=== PATIENT | male | born 1945 | race Caucasian/White ===

== ENCOUNTER 2020-11-03 07:25 | Outpatient (REF) | payer MEDICARE, OTHER, SELFPAY ==
[2020-11-03 10:31] LABS: MANUAL DIFF FLAG NO
[2020-11-03 10:35] LABS: Basophils Percent Auto 0.4 % (0-2); Eosinophils Absolute Auto 0.2 X10*3/uL (0.0-0.4); Eosinophils Percent Auto 2.3 % (0-4); Hematocrit 43.9 % (42-52); Hemoglobin 14.3 g/dl (14.0-18.0); Imm Gran Abs Auto 0.03 X10*3/uL (0.00-0.03); Imm Gran Pct Auto 0.4 % (0.0-0.4); Lymphocytes Absolute Auto 1.6 X10*3/uL (1.2-4.9); Lymphocytes Percent Auto 22.1 % (20-40); Mean Corpuscular HGB Conc 32.6 g/dl (31.0-36.0); Mean Corpuscular Hemoglobin 30.8 pg (27.0-33.0); Mean Corpuscular Volume 94.6 fL (80-98); Mean Platelet Volume 9.8 fL (9.4-12.4); Monocytes Absolute Auto 0.5 X10*3/uL (0.1-1.2); Monocytes Percent Auto 7.4 % (2-11); Neutrophils Absolute Auto 4.7 X10*3/uL (2.0-8.3); Neutrophils Percent Auto 67.4 % (45-73); Platelet Count 295 X10*3/uL (160-400); Red Blood Count 4.64 X10*6/uL (4.60-5.80); Red Cell Distribution Width 12.4 % (11.0-16.0)
[2020-11-03 10:49] LABS: Glucose Urine UA NEG (NEG); Leukocyte Esterase Urine NEG (NEG); Nitrite Urine NEG (NEG); PH 7.5 (5.0-8.0); Urine Blood NEG (NEG); Urine Ketones NEG (NEG); Urine Protein NEG (NEG-TRACE)
[2020-11-03 10:51] LABS: Appearance Urine CLEAR; Color Urine YELLOW
[2020-11-03 11:11] LABS: Alanine Aminotransferase 22 U/L (0-40); Albumin Level 4.4 g/dL (3.5-5.0); Alkaline Phosphatase 92 U/L (39-117); Anion Gap 13 (12-20); Aspartate Amino Transferase 22 U/L (5-37); Bilirubin Total 0.9 mg/dL (0.0-1.0); Blood Urea Nitrogen 15 mg/dL (9-16); Calcium 9.4 mg/dL (8.4-10.2); Carbon Dioxide 31 mmol/L (22-29); Chloride 103 mmol/L (96-108); Cholesterol 122 mg/dL; Estimated Glomerular Filt Rate > 60; Glucose Fasting 97 mg/dL (60-99); HDL Cholesterol 36 mg/dL; LDL Cholesterol Calculated 58 mg/dl; Potassium 4.3 mmol/l (3.3-5.1); Sodium 143 mmol/L (135-145); Triglycerides 142 mg/dL
[2020-11-03 11:32] LABS: Prostate Specific Antigen 1.98 ng/mL (<0.05-4.0)
== END 2020-11-03 07:26 | disposition home or self-care (01) ==
LOC: HO.WFDLDS 07:25
PROVIDERS: Visit Provider Internal Medicine
DX: E78.00 Pure hypercholesterolemia, unspecified (principal); I10 Essential (primary) hypertension; R31.9 Hematuria, unspecified; N40.0 Benign prostatic hyperplasia without lower urinary tract symptoms; R79.9 Abnormal finding of blood chemistry, unspecified; R94.5 Abnormal results of liver function studies
CPT/HCPCS: 36415; 80053; 80061; 81003; 84153; 85025

== ENCOUNTER 2020-11-26 08:18 | Outpatient (REF) | payer MEDICARE, OTHER, SELFPAY ==
--- NOTE | ~2020-11-26 | US_ITS ---
EXAMINATION: US SCREENING AORTIC CLINICAL INFORMATION: Family history of abdominal aortic aneurysm COMPARISON: Abdominal aortic ultrasound on 10/13/2015 TECHNIQUE: Ultrasound of the abdominal aorta was performed. FINDINGS: Real-time ultrasound of the abdominal aorta is performed. AP and transverse measurements were taken of the proximal, mid and distal aorta. Measurements were taken of the right and left iliac arteries. There is no evidence of aneurysm. There is mild atherosclerotic disease. US/US abdominal aortic aneurysm IMPRESSION: No abdominal aortic or iliac artery aneurysm.
== END 2020-11-26 08:19 | disposition home or self-care (01) ==
LOC: HO.US 08:18
PROVIDERS: Visit Provider Internal Medicine
DX: Z13.6 Encounter for screening for cardiovascular disorders (principal); Z82.49 Family history of ischemic heart disease and other diseases of the circulatory system
CPT/HCPCS: 76706

== ENCOUNTER → 2021-02-02 14:16 | Outpatient (BNVA) | payer MEDICARE, OTHER, SELFPAY | PROVIDERS: PCP Internal Medicine; Visit Provider Internal Medicine Cardiovascular Disease | DX: I25.10 Atherosclerotic heart disease of native coronary artery without angina pectoris (principal); I42.9 Cardiomyopathy, unspecified; I44.7 Left bundle-branch block, unspecified | CPT/HCPCS: 99212 ==

== ENCOUNTER 2021-05-13 10:21 | Outpatient (REF) | payer MEDICARE, OTHER, SELFPAY ==
[2021-05-13 10:57] LABS: Alanine Aminotransferase 22 U/L (0-40); Albumin Level 4.2 g/dL (3.5-5.0); Alkaline Phosphatase 79 U/L (39-117); Aspartate Amino Transferase 25 U/L (5-37); Bilirubin Direct 0.2 mg/dL (0.0-0.5); Bilirubin Total 0.5 mg/dL (0.0-1.0); Cholesterol 136 mg/dL; HDL Cholesterol 32 mg/dL; LDL Cholesterol Calculated 51 mg/dl; Total Protein 6.8 g/dL (6.5-8.0); Triglycerides 265 mg/dL
[2021-05-13 11:02] LABS: Reflex LDLD? No
== END 2021-05-13 10:22 | disposition home or self-care (01) ==
LOC: HO.LNP 10:21
PROVIDERS: Visit Provider Internal Medicine
DX: E78.9 Disorder of lipoprotein metabolism, unspecified (principal)
CPT/HCPCS: 80061; 80076

== ENCOUNTER → 2021-07-12 09:21 | Outpatient (REF) | payer MEDICARE, OTHER, SELFPAY ==
--- NOTE | 2021-07-12 09:29 | CA_ITS ---
Transthoracic Echocardiogram Patient (Last, First, Middle): Riccardo Pierson J Gender: Male Date of : 1945 Age: 76 Procedure Date: 07/12/2021 Procedure Type: Transthoracic Echocardiogram Location: OP Height: 157.48 cm Weight: 58.97 kg BSA: 1.59 m2 Heart Rate: bpm BP: 150 / 89 mmHg Diazo Technician: KELI Referring MD: Driss Aguero MD Symptoms: I42.9 - Cardiomyopathy, unspecified Study Quality: Good ECG Rhythm: Sinus Conclusions: - The left ventricular systolic function is normal. The visually estimated ejection fraction is between 55-60%(due to paradoxical septal motion, difficult to assess; could be slightly lower than this). Findings Left Ventricle Normal left ventricular cavity size. The left ventricular systolic function is normal. The visually estimated ejection fraction is between 55-60%. There is no evidence of regional wall motion abnormalities. There is paradoxical septal motion consistent with a left bundle branch block. E/E prime ratio is <8, consistent with normal filling pressures. Evidence suggests grade I (mild) diastolic dysfunction. LV peak GLS -18.7%. Prior Study Comparison No significant change compared to prior study dated: 09/20/2017. Measurements 2D Linear Measurements IVSd: 1.52 0.6-0.9/0.6-1.0 cm LVIDd: 4.59 3.9-5.3/4.2-5.9 cm LVIDd Index: 2.89 2.4-3.2/2.2-3.1 cm/m2 LVIDs: 3.02 2.0-3.6 cm LVPWd: 1.41 0.7-1.1 cm LA Diam: 4.20 2.7-3.8/3.0-4.0 cm LAIDs Index: 2.64 1.5-2.3 cm/m2 LV Mass: 341.70 67-162/88-224 g LV Mass Index: 214.90 43-95/49-115 g/m2 2D Systolic Function EF 4C: 58.50 >55% EF 2C: 42.20 >55% Mitral Valve MV Pk E: 0.51 MV PK A: 0.62 MV Decel Time: 313.00 E/A: 0.80 E'Lateral: 6.85 E'Medial: 5.77 E/E' Med: 8.90 E/E' Lat: 7.50 PHT: 92.00 MVA PHT: 2.39 Decel [place]: 1.64 Diastolic Function MV Pk E: 0.51 MV Pk A: 0.62 E/A: 0.80 E'Medial: 5.77 E/E' Med: 8.90 E' Laterial: 6.85 E/E' Lat: 7.50 Updated in Other Vendor System with Status of Final Filiberto Stewart MD electronically signed on 07/12/2021 12:49:05 PM with status of Final
== END ==
LOC: HO.CARD 09:21
PROVIDERS: PCP Internal Medicine; Visit Provider Internal Medicine Cardiovascular Disease
DX: I42.9 Cardiomyopathy, unspecified (principal)
CPT/HCPCS: 93308; 93356

== ENCOUNTER → 2021-07-27 13:26 | Outpatient (BNVA) | payer MEDICARE, OTHER, SELFPAY | PROVIDERS: PCP Internal Medicine; Referring Provider Internal Medicine; Visit Provider Internal Medicine Cardiovascular Disease | DX: I25.10 Atherosclerotic heart disease of native coronary artery without angina pectoris (principal); I42.9 Cardiomyopathy, unspecified | CPT/HCPCS: 99212 ==

== ENCOUNTER 2022-02-14 10:47 | Outpatient (REF) | payer MEDICARE, OTHER, SELFPAY ==
[2022-02-14 10:51] LABS: MANUAL DIFF FLAG NO
[2022-02-14 11:07] LABS: Basophils Percent Auto 0.5 % (0-2); Eosinophils Absolute Auto 0.1 X10*3/uL (0.0-0.4); Eosinophils Percent Auto 2.1 % (0-4); Hematocrit 39.3 % (42.0-52.0); Imm Gran Abs Auto 0.01 X10*3/uL (0.00-0.03); Imm Gran Pct Auto 0.2 % (0.0-0.4); Lymphocytes Absolute Auto 1.6 X10*3/uL (1.2-4.9); Lymphocytes Percent Auto 29.2 % (20-40); Mean Corpuscular HGB Conc 33.1 g/dl (31.0-36.0); Mean Corpuscular Hemoglobin 31.1 pg (27.0-33.0); Monocytes Absolute Auto 0.4 X10*3/uL (0.1-1.2); Monocytes Percent Auto 7.3 % (2-11); Neutrophils Absolute Auto 3.4 x10*3/uL (2.0-8.3); Neutrophils Percent Auto 60.7 % (45-73); Platelet Count 295 X10*3/uL (160-400); Red Blood Count 4.18 X10*6/uL (4.60-5.80); Red Cell Distribution Width 12.4 % (11.0-16.0); White Blood Count 5.6 X10*3/uL (4.8-10.8)
[2022-02-14 11:13] LABS: Appearance Urine CLEAR; Color Urine YELLOW; Glucose Urine UA NEG (NEG); Leukocyte Esterase Urine NEG (NEG); Nitrite Urine NEG (NEG); Urine Blood NEG (NEG); Urine Ketones NEG (NEG); Urine Protein NEG (NEG-TRACE)
[2022-02-14 11:19] LABS: Alanine Aminotransferase 16 U/L (0-40); Alkaline Phosphatase 71 U/L (39-117); Anion Gap 10 (12-20); Aspartate Amino Transferase 20 U/L (5-37); Bilirubin Total 0.5 mg/dL (0.0-1.0); Blood Urea Nitrogen 13 mg/dL (9-16); Calcium 9.4 mg/dL (8.4-10.2); Carbon Dioxide 30 mmol/L (22-29); Chloride 106 mmol/L (96-108); Cholesterol 118 mg/dL; Estimated Glomerular Filt Rate > 60; Glucose Fasting 90 mg/dL (60-99); HDL Cholesterol 29 mg/dL; LDL Cholesterol Calculated 42 mg/dl; Potassium 4.3 mmol/L (3.3-5.1); Sodium 142 mmol/L (135-145); Total Protein 6.4 g/dL (6.5-8.0); Triglycerides 237 mg/dL
[2022-02-14 11:41] LABS: PSA,Total (Free>4and<10) 0.55 ng/mL (0.00-4.00)
== END 2022-02-14 10:48 | disposition home or self-care (01) ==
LOC: HO.LNP 10:47
PROVIDERS: Visit Provider Internal Medicine
DX: Z12.5 Encounter for screening for malignant neoplasm of prostate (principal); I10 Essential (primary) hypertension; E78.00 Pure hypercholesterolemia, unspecified; N40.0 Benign prostatic hyperplasia without lower urinary tract symptoms
CPT/HCPCS: 80053; 80061; 81003; 84153; 85025

== ENCOUNTER → 2022-02-17 15:20 | Outpatient (BNVA) | payer MEDICARE, OTHER, SELFPAY | PROVIDERS: PCP Internal Medicine; Referring Provider Internal Medicine; Visit Provider Internal Medicine Cardiovascular Disease | DX: I25.10 Atherosclerotic heart disease of native coronary artery without angina pectoris (principal); I44.7 Left bundle-branch block, unspecified | CPT/HCPCS: 93005; 99212 ==

== ENCOUNTER 2022-06-14 10:32 | Outpatient (REF) | payer MEDICARE, OTHER, SELFPAY ==
[2022-06-14 10:34] LABS: MANUAL DIFF FLAG NO
[2022-06-14 10:47] LABS: Basophils Percent Auto 0.5 % (0-2); Eosinophils Absolute Auto 0.1 X10*3/uL (0.0-0.4); Hematocrit 41.6 % (42.0-52.0); Hemoglobin 13.6 g/dl (14.0-18.0); Imm Gran Abs Auto 0.02 X10*3/uL (0.00-0.03); Imm Gran Pct Auto 0.3 % (0.0-0.4); Lymphocytes Absolute Auto 1.9 X10*3/uL (1.2-4.9); Lymphocytes Percent Auto 28.7 % (20-40); Mean Corpuscular HGB Conc 32.7 g/dl (31.0-36.0); Mean Corpuscular Hemoglobin 31.6 pg (27.0-33.0); Mean Corpuscular Volume 96.5 fL (80.0-98.0); Mean Platelet Volume 9.7 fL (9.4-12.4); Monocytes Absolute Auto 0.5 X10*3/uL (0.1-1.2); Monocytes Percent Auto 8.2 % (2-11); Neutrophils Absolute Auto 3.9 x10*3/uL (2.0-8.3); Neutrophils Percent Auto 60.3 % (45-73); Platelet Count 248 X10*3/uL (160-400); Red Blood Count 4.31 X10*6/uL (4.60-5.80); Red Cell Distribution Width 12.4 % (11.0-16.0); White Blood Count 6.5 X10*3/uL (4.8-10.8)
== END 2022-06-14 10:33 | disposition home or self-care (01) ==
LOC: HO.LNP 10:32
PROVIDERS: Visit Provider Internal Medicine
DX: D64.9 Anemia, unspecified (principal)
CPT/HCPCS: 85025

== ENCOUNTER 2022-08-16 10:08 | Outpatient (REF) | payer MEDICARE, OTHER, SELFPAY ==
--- NOTE | ~2022-08-16 | XR_ITS ---
EXAMINATION: XR KNEE, LEFT CLINICAL INFORMATION: Left knee strain. COMPARISON: None TECHNIQUE: Four views of the left knee. FINDINGS: Bones and soft tissues are normal. No fracture or joint effusion. Alignment is anatomic. Joint spaces are well maintained. No abnormal soft tissue calcification. XR/XR knee LT 4V IMPRESSION: Unremarkable left knee.
== END 2022-08-16 10:09 | disposition home or self-care (01) ==
LOC: HO.HMGCX 10:08
PROVIDERS: PCP Internal Medicine; Visit Provider Internal Medicine
DX: S86.912A Strain of unspecified muscle(s) and tendon(s) at lower leg level, left leg, initial encounter (principal)
CPT/HCPCS: 73564

== ENCOUNTER 2022-09-09 10:57 | Outpatient (REF) | payer MEDICARE, OTHER, SELFPAY ==
[2022-09-09 14:07] LABS: Alanine Aminotransferase 23 U/L (0-40); Albumin Level 4.3 g/dL (3.5-5.0); Alkaline Phosphatase 81 U/L (39-117); Aspartate Amino Transferase 26 U/L (5-37); Bilirubin Direct 0.3 mg/dL (0.0-0.5); Bilirubin Total 0.9 mg/dL (0.0-1.0); Cholesterol 133 mg/dL; HDL Cholesterol 31 mg/dL; LDL Cholesterol Calculated 56 mg/dl; Total Protein 6.5 g/dL (6.5-8.0); Triglycerides 230 mg/dL
[2022-09-09 14:29] LABS: Reflex LDLD? No
== END 2022-09-09 10:58 | disposition home or self-care (01) ==
LOC: HO.LNP 10:57
PROVIDERS: Visit Provider Internal Medicine
DX: E78.00 Pure hypercholesterolemia, unspecified (principal)
CPT/HCPCS: 80061; 80076

== ENCOUNTER → 2022-11-01 12:49 | Outpatient (BNVA) | payer MEDICARE, OTHER, SELFPAY | PROVIDERS: PCP Internal Medicine; Referring Provider Internal Medicine; Visit Provider Internal Medicine Cardiovascular Disease | DX: Z01.810 Encounter for preprocedural cardiovascular examination (principal); I25.10 Atherosclerotic heart disease of native coronary artery without angina pectoris; I44.7 Left bundle-branch block, unspecified; I42.9 Cardiomyopathy, unspecified | CPT/HCPCS: 93005; 99212 ==

== ENCOUNTER 2023-01-03 11:03 | Outpatient (REF) | payer MEDICARE, OTHER, SELFPAY ==
[2023-01-03 12:12] LABS: Alanine Aminotransferase 36 U/L (0-40); Albumin Level 4.2 g/dL (3.5-5.0); Alkaline Phosphatase 85 U/L (39-117); Anion Gap 10 (12-20); Aspartate Amino Transferase 31 U/L (5-37); Bilirubin Total 0.6 mg/dL (0.0-1.0); Blood Urea Nitrogen 17 mg/dL (9-16); Calcium 9.1 mg/dL (8.4-10.2); Carbon Dioxide 31 mmol/L (22-29); Chloride 106 mmol/L (96-108); Estimated Glomerular Filt Rate > 60; Glucose Fasting 93 mg/dL (60-99); Potassium 4.4 mmol/L (3.3-5.1); Sodium 143 mmol/L (135-145); TSH reflex Free T4 1.68 uIU/mL (0.32-4.0); Total Protein 6.2 g/dL (6.5-8.0)
== END 2023-01-03 11:04 | disposition home or self-care (01) ==
LOC: HO.LNP 11:03
PROVIDERS: Visit Provider Internal Medicine
DX: R53.83 Other fatigue (principal)
CPT/HCPCS: 80053; 84443

== ENCOUNTER → 2023-02-06 09:37 | Outpatient (REF) | payer MEDICARE, OTHER, SELFPAY ==
--- NOTE | 2023-02-06 09:40 | CA_ITS ---
Transthoracic Echocardiogram Patient (Last, First, Middle): Riccardo Pierson J Gender: Male Date of : 1945 Age: 77 Procedure Date: 02/06/2023 Procedure Type: Transthoracic Echocardiogram Location: OP Height: 157.48 cm Weight: 54.43 kg BSA: 1.54 m2 Heart Rate: 51 bpm BP: 134 / 70 mmHg Trimming Assembler: CHRISTOPH Referring MD: Driss Aguero MD Labor Training Manager: Driss Aguero MD Symptoms: I42.9 - Cardiomyopathy, unspecified Study Quality: Adequate ECG Rhythm: Bradycardia Conclusions: - 1. Normal LV systolic function with LVEF of 55-60% with impaired relaxation filling pattern 2. Mildly to moderately reduced RV systolic function 3. Mild aortic stenosis is noted 4. Normal RV systolic pressure 5. No pericardial effusion Findings Left Ventricle Normal left ventricular size, thickness, and systolic function. The visually estimated ejection fraction is between 55-60%. There is paradoxical septal motion consistent with post-operative status. Spectral Doppler is indicative of an impaired relaxation filling pattern. E/E prime ratio is between 8 and 15 consistent with indeterminate filling pressures. Right Ventricle Normal right ventricular cavity size. There is mild to moderately decreased right ventricular systolic function. Atria The left atrium is mildly dilated. There is no evidence of interatrial shunt. The right atrium is mildly dilated. Aortic Valve There is mild calcification of the aortic valve. There is mild thickening of the aortic valve. There is mild aortic valve stenosis. There is no aortic valve regurgitation. Mitral Valve There is mild anterior and posterior mitral leaflet thickening. There is trace mitral valve regurgitation. There is no mitral valve stenosis. Pulmonic Valve The pulmonic valve was not well visualized. Tricuspid Valve Normal tricuspid valve structure. There is mild tricuspid valve regurgitation. The right ventricular systolic pressure is normal. The right ventricular systolic pressure is 28 mmHg. Normal right atrial pressure. There is no evidence of pulmonary hypertension. Great Vessels All visible segments of the aorta are normal in size. The pulmonary artery was not well visualized. Venous The inferior vena cava is normal in size and collapses greater than 50% with inspiration. Pericardium/Pleural There is no evidence of pericardial effusion. Prior Study Comparison Changes noted compared to prior study dated: 07/12/2021. RV systolic function was not measured on prior study. mild aortic stenosis is noted Measurements 2D Linear Measurements IVSd: 1.19 0.6-0.9/0.6-1.0 cm LVIDd: 4.60 3.9-5.3/4.2-5.9 cm LVIDd Index: 2.99 2.4-3.2/2.2-3.1 cm/m2 LVIDs: 3.17 2.0-3.6 cm LVPWd: 0.71 0.7-1.1 cm LA Diam: 3.90 2.7-3.8/3.0-4.0 cm LAIDs Index: 2.53 1.5-2.3 cm/m2 LV Mass: 184.78 67-162/88-224 g LV Mass Index: 119.98 43-95/49-115 g/m2 LVOT Diam: 2.20 3.0+(-)1.3 cm 2D Systolic Function EF 4C: 54.90 >55% EF 2C: 60.00 >55% EF BiP: 55.80 >55% Mitral Valve MV Pk E: 0.62 MV PK A: 0.69 MV Decel Time: 269.00 E/A: 0.90 E'Lateral: 6.85 E'Medial: 5.66 E/E' Med: 11.00 E/E' Lat: 9.10 PHT: 79.00 MVA PHT: 2.78 Decel [place]: 2.31 Aortic Valve AoV Pk Sigifredo: 1.89 AoV Mn Sigifredo: 1.29 AoV VTI: 0.44 AoV Pk Grad: 16.00 Aov Mn Grad: 8.00 HANNAH Cont.VTI: 1.55 LVOT LVOT Pk Sigifredo: 0.83 LVOT Mn Sigifredo: 0.60 LVOT VTI: 0.18 LVOT Pk Grad: 3.00 LVOT Mn Grad: 2.00 LVOT Diam: 2.20 LVOT Area: 3.80 Diastolic Function MV Pk E: 0.62 MV Pk A: 0.69 E/A: 0.90 E'Medial: 5.66 E/E' Med: 11.00 E' Laterial: 6.85 E/E' Lat: 9.10 Right Ventricle TAPSE (mm): 11.00 TVS' Sigifredo: 9.10 Tricuspid Valve TR Pk Sigifredo: 2.48 TR Pk Grad: 25.00 RA Press: 3.00 RVSP: 28.00 Great Vessels Aorta Sinus of Valsalva: 3.40 2.0-3.5 cm Ao Asc: 3.50 2.1-3.4 cm Pulmonary Valve PV Pk Sigifredo: 1.15 Peak PV Grad: 5.00 Updated in Other Vendor System with Status of Final Driss Aguero MD electronically signed on 02/06/2023 11:08:31 AM with status of Final
== END ==
LOC: HO.CARD 09:37
PROVIDERS: PCP Internal Medicine; Visit Provider Internal Medicine Cardiovascular Disease
DX: I42.9 Cardiomyopathy, unspecified (principal)
CPT/HCPCS: 93306

== ENCOUNTER → 2023-02-27 14:07 | Outpatient (BNVA) | payer MEDICARE, OTHER, SELFPAY | PROVIDERS: PCP Internal Medicine; Referring Provider Internal Medicine; Visit Provider Internal Medicine Cardiovascular Disease | DX: I25.10 Atherosclerotic heart disease of native coronary artery without angina pectoris (principal); I44.7 Left bundle-branch block, unspecified; I35.0 Nonrheumatic aortic (valve) stenosis; I42.9 Cardiomyopathy, unspecified; Z79.899 Other long term (current) drug therapy | CPT/HCPCS: 99212 ==

== ENCOUNTER 2023-04-03 10:58 | Outpatient (REF) | payer MEDICARE, OTHER, SELFPAY ==
[2023-04-03 11:02] LABS: MANUAL DIFF FLAG NO
[2023-04-03 11:14] LABS: Appearance Urine Clear; Basophils Percent Auto 0.2 % (0-2); Color Urine Yellow; Eosinophils Absolute Auto 0.1 X10*3/uL (0.0-0.4); Eosinophils Percent Auto 0.6 % (0-4); Glucose Urine UA Negative (Negative); Hematocrit 40.2 % (42.0-52.0); Hemoglobin 12.6 g/dl (14.0-18.0); Imm Gran Abs Auto 0.12 X10*3/uL (0.00-0.03); Leukocyte Esterase Urine Negative (Negative); Lymphocytes Absolute Auto 2.9 X10*3/uL (1.2-4.9); Lymphocytes Percent Auto 23.1 % (20-40); Mean Corpuscular HGB Conc 31.3 g/dl (31.0-36.0); Mean Corpuscular Hemoglobin 29.5 pg (27.0-33.0); Mean Corpuscular Volume 94.1 fL (80.0-98.0); Monocytes Absolute Auto 0.6 X10*3/uL (0.1-1.2); Monocytes Percent Auto 4.7 % (2-11); Neutrophils Absolute Auto 8.7 x10*3/uL (2.0-8.3); Neutrophils Percent Auto 70.4 % (45-73); Nitrite Urine Negative (Negative); Platelet Count 559 X10*3/uL (160-400); Red Blood Count 4.27 X10*6/uL (4.60-5.80); Red Cell Distribution Width 12.8 % (11.0-16.0); Urine Blood Negative (Negative); Urine Ketones Negative (Negative); Urine Protein Negative (Neg-Trace); White Blood Count 12.4 X10*3/uL (4.8-10.8)
[2023-04-03 11:16] LABS: Bacteria Urine None Seen (None Seen); Hyaline Casts Urine 0-2 /LPF (0-2); RBC Urine 0-2 /HPF (0-2); Squamous Epithelial Cell Urine 0-2 /HPF (0-2); WBC Urine 0-5 /HPF (0-5)
[2023-04-03 11:45] LABS: Alanine Aminotransferase 34 U/L (0-40); Albumin Level 4.3 g/dL (3.5-5.0); Alkaline Phosphatase 133 U/L (39-117); Anion Gap 14 (12-20); Aspartate Amino Transferase 27 U/L (5-37); Bilirubin Total 0.7 mg/dL (0.0-1.0); Blood Urea Nitrogen 26 mg/dL (9-16); Calcium 10.1 mg/dL (8.4-10.2); Carbon Dioxide 30 mmol/L (22-29); Chloride 101 mmol/L (96-108); Cholesterol 142 mg/dL; Estimated Glomerular Filt Rate > 60; Glucose Fasting 99 mg/dL (60-99); HDL Cholesterol 32 mg/dL; LDL Cholesterol Calculated 62 mg/dl; Potassium 5.1 mmol/L (3.3-5.1); Sodium 140 mmol/L (135-145); Total Protein 7.2 g/dL (6.5-8.0); Triglycerides 242 mg/dL
== END 2023-04-03 10:59 | disposition home or self-care (01) ==
LOC: HO.LNP 10:58
PROVIDERS: Visit Provider Internal Medicine
DX: I10 Essential (primary) hypertension (principal); E78.00 Pure hypercholesterolemia, unspecified; N40.0 Benign prostatic hyperplasia without lower urinary tract symptoms; Z12.5 Encounter for screening for malignant neoplasm of prostate
CPT/HCPCS: 80053; 80061; 81001; 84153; 85025

== ENCOUNTER 2023-05-05 11:48 | Outpatient (REF) | payer MEDICARE, OTHER, SELFPAY ==
[2023-05-05 11:52] LABS: MANUAL DIFF FLAG NO
[2023-05-05 11:56] LABS: Basophils Percent Auto 0.5 % (0-2); Eosinophils Absolute Auto 0.2 X10*3/uL (0.0-0.4); Eosinophils Percent Auto 2.3 % (0-4); Hematocrit 37.2 % (42.0-52.0); Hemoglobin 11.9 g/dl (14.0-18.0); Imm Gran Abs Auto 0.02 X10*3/uL (0.00-0.03); Imm Gran Pct Auto 0.3 % (0.0-0.4); Lymphocytes Percent Auto 29.7 % (20-40); Mean Corpuscular Hemoglobin 30.7 pg (27.0-33.0); Mean Corpuscular Volume 96.1 fL (80.0-98.0); Mean Platelet Volume 9.7 fL (9.4-12.4); Monocytes Absolute Auto 0.4 X10*3/uL (0.1-1.2); Monocytes Percent Auto 5.9 % (2-11); Neutrophils Percent Auto 61.3 % (45-73); Platelet Count 310 X10*3/uL (160-400); Red Blood Count 3.87 X10*6/uL (4.60-5.80); Red Cell Distribution Width 13.9 % (11.0-16.0); White Blood Count 6.6 X10*3/uL (4.8-10.8)
[2023-05-05 12:15] LABS: Alkaline Phosphatase 82 U/L (39-117); Blood Urea Nitrogen 18 mg/dL (9-16); Estimated Glomerular Filt Rate > 60
== END 2023-05-05 11:49 | disposition home or self-care (01) ==
LOC: HO.LNP 11:48
PROVIDERS: Visit Provider Internal Medicine
DX: I10 Essential (primary) hypertension (principal)
CPT/HCPCS: 82565; 84075; 84520; 85025

== ENCOUNTER 2023-09-29 10:54 | Outpatient (REF) | payer MEDICARE, OTHER, SELFPAY ==
[2023-09-29 11:29] LABS: Cholesterol 139 mg/dL (<200); HDL Cholesterol 36 mg/dL (>40); LDL Cholesterol Calculated 70 mg/dL (<100); Triglycerides 167 mg/dL (<150)
[2023-09-29 11:36] LABS: Alanine Aminotransferase 18 U/L (0-40); Albumin Level 4.3 g/dL (3.5-5.0); Alkaline Phosphatase 92 U/L (39-117); Aspartate Amino Transferase 27 U/L (5-37); Bilirubin Direct 0.3 mg/dL (0.0-0.5); Bilirubin Total 0.7 mg/dL (0.0-1.0); Total Protein 6.9 g/dL (6.5-8.0)
[2023-09-29 12:40] LABS: Reflex LDLD? No
== END 2023-09-29 10:55 | disposition home or self-care (01) ==
LOC: HO.LNP 10:54
PROVIDERS: PCP Internal Medicine; Visit Provider Internal Medicine
DX: E78.00 Pure hypercholesterolemia, unspecified (principal)
CPT/HCPCS: 80061; 80076

== ENCOUNTER 2023-11-27 21:32 | Emergency (ER) | payer MEDICARE, OTHER, SELFPAY ==
--- NOTE | 2023-11-27 | ECG_ITS ---
Test Reason : CP Blood Pressure : / mmHG Vent. Rate : 046 BPM Atrial Rate : 046 BPM P-R Int : 176 ms QRS Dur : 148 ms QT Int : 502 ms P-R-T Axes : 048 -39 086 degrees QTc Int : 439 ms Sinus bradycardia Left axis deviation Left bundle branch block Abnormal ECG No previous ECGs available Referred By: Generic ED Physician Electronically Signed By:ANTONINO GODOY MD
--- NOTE | ~2023-11-27 | XR_ITS ---
EXAMINATION: XR CHEST CLINICAL INFORMATION: Chest pain. COMPARISON: None available. TECHNIQUE: Frontal view of the chest was obtained. FINDINGS: The lung volumes are low slightly limiting evaluation. The cardiOmediastinal silhouette is within normal limits. There has been a previous median sternotomy. There is mild lower lung field increased markings. There is no focal consolidation or pleural effusion. The bony structures are osteopenic. The soft tissues are unremarkable. XR/XR chest 1V IMPRESSION: Mild lower lung field increased markings could be secondary to low lung volumes. No acute cardiopulmonary process.
[2023-11-27 21:48] VITALS: BP 192/82; PULSE 47; O2SAT 96
--- NOTE | 2023-11-27 22:01 | MHC.EDTECH ---
Patient came in by EMS,changed into hospital attire,vitals taken and patient placed on the monitor tech, EKG taken per order and signed by provider. at bedside and call simeon in reach
[2023-11-27 22:06] VITALS: BP 166/62; PULSE 48; RESP 16; TEMP 36.7; O2SAT 100; BMI 22.9
--- NOTE | 2023-11-27 22:09 | MHC.EDTECH ---
Labs obtained and sent to lab.
[2023-11-27 22:13] LABS: MANUAL DIFF FLAG NO
[2023-11-27 22:23] LABS: INTERNATIONAL NORM RATIO 0.9 (0.9-1.1); Prothrombin Time 11.3 SEC (11.1-13.3)
--- NOTE | 2023-11-27 22:23 | ED_ITS ---
HPI - Weakness General Chief complaint: Weakness Stated complaint: Weakness, hypertensive, SOB Time Seen by Provider: 11/27/23 22:14 Source: patient, family () and EMS Mode of arrival: ambulatory Limitations: no limitations History of Present Illness HPI Narrative: 78yo male brought in by ambulance for 1 episode of generalized weakness earlier today while he was home, patient was trying to get up to the bed and felt generalized weakness otherwise with no focal weakness, no shortness of breath, no chest pain then, while transported by EMS to the hospital started to have left-sided chest pain that lasted for few minutes withdrawal radiation now it has no chest pain. Patient usually have bradycardia in the 40s-50s which is normal for the patient patient did not feel lightheadedness or near syncopal episode. Related Data Home Medications Medication Instructions Recorded Confirmed aspirin 81 mg tablet,delayed 81 mg PO DAILY 02/02/21 02/27/23 release (Adult Low Dose Aspirin) atorvastatin 80 mg tablet 80 mg PO DAILY 02/02/21 02/27/23 cyclosporine 0.05 % eye drops in a 1 drp ophthalmic (eye) BID 02/02/21 02/27/23 dropperette esomeprazole magnesium 40 mg 40 mg PO BID 02/02/21 02/27/23 capsule,delayed release montelukast 10 mg tablet 10 mg PO QPM 02/02/21 02/27/23 diclofenac potassium 50 mg tablet mg PO BID PRN 11/01/22 02/27/23 valsartan 80 mg tablet 80 mg PO DAILY 11/01/22 02/27/23 Previous Rx's Medication Instructions Recorded amlodipine 2.5 mg tablet 2.5 mg PO DAILY 90 days #90 tabs 10/31/22 Allergies Allergy/AdvReac Type Severity Reaction Status Date / Time No Known Allergies Allergy Unverified 11/27/23 21:48 [No Known Allergies*] seasonal Allergy Unknown Unknown Uncoded 11/27/23 21:48 Review of Systems 2 Review of Systems: All other systems are reviewed and are negative Constitutional: Reports as per HPI and Reports no additional constitutional complaints Eyes: Reports as per HPI and Reports no additional eye complaints Reports system reviewed and no additional complaints, except as documented Cardiovascular: Reports as per HPI and Reports no additional cardiovascular complaints Respiratory: Reports as per HPI and Reports no additional respiratory complaints Gastrointestinal: Reports as per HPI and Reports no additional gastrointestinal complaints Genitourinary: Reports no additional female genitourinary complaints Musculoskeletal: Reports no additional musculoskeletal complaints Skin/Breast: Reports system reviewed and no additional complaints, except as docu Psychiatric: Reports no additional psychiatric complaints Endocrine: Reports no additional endocrine complaints Hematologic/Lymphatic: Reports no additional hematologic/lymphatic complaints Allergic/Immunologic: Reports no additional allergic/immunologic complaints Reports system reviewed and no additional complaints, except as documented and Reports Abnormal speech present [facility] Past Medical History Medical History Cardiomyopathy LBBB (left bundle branch block) Hyperlipidemia CVA (cerebral vascular accident) CAD (coronary artery disease) Surgical History S/P CABG x 3 Hx of colonoscopy History of nasal surgery Hx of cardiac cath Family History Family History Father CVD (cardiovascular disease) Mother Cancer Social History Social History Alcohol intake: current Smoked in Last 30 Days: No Use of substances other than those prescribed or required for medical reasons: No Advance Directives: No Advance Directives Information Provided: No Physical Exam 2 Vital Signs: Vital Signs: Last Vital Signs Temp 97.7 F 11/28/23 02:27 Pulse 96 11/28/23 02:27 Resp 17 11/28/23 02:27 BP 146/53 H 11/28/23 02:27 Pulse Ox 97 11/28/23 02:27 O2 Del Method Room Air 11/28/23 02:27 BMI result Body Mass Index 22.9 Vital signs have been reviewed and appear to be correct. Blood pressure elevated. Heart rate normal. Respiratory rate normal. Temperature normal. Oxygen saturation normal. Appearance: Alert. Oriented X3. No acute distress. Head: Normal external exam. Normocephalic. Atraumatic. No Cooper signs noted. No raccoon eyes noted Eyes: PERRLA. EOMI. Conjunctiva and sclera normal. Eyelids normal. ENT: TM's Normal. Pharynx normal. Uvula midline. Moist mucous membranes. No trismus noted. No drooling noted. No muffled voice noted. Neck: Normal inspection. Neck supple. FROM. No adenopathy. Thyroid Normal. No meningeal signs. No neck mass noted. CVS: Normal heart rate and rhythm. Heart sound normal. No murmurs noted. Pulses normal throughout. Respiratory: No respiratory distress. Painless inspiration. Breath sounds normal. No wheezes/rales/rhonchi noted. Chest nontender. No accessory muscle usage noted or decreased air movement noted. Abdomen: Soft and nontender. Bowel sounds normal in all 4 quadrants. No distention noted. No organomegaly noted. No visible injury noted. Back: No CVA tenderness. Full range of motion noted. Skin: Skin warm and dry. Normal skin color. Normal skin turgor. No rashes/lesions/lacerations noted. Extremities: No lower extremity edema. Extremities exhibit normal range of motion. Extremities nontender. Neuro: Oriented X 3. Cranial nerve exam: II-XII are grossly intact No motor deficit. No sensory deficit. Reflexes normal. NIH Stroke Scale Time: 22:34 Level of Consciousness: Alert Level of Consciousness Questions: Answers both questions correctly Level of Consciousness Commands: Performs both tasks correctly Best Gaze: Normal Visual: No visual loss Facial Palsy: Normal Motor Arm (Right): No drift Motor Arm (Left): No drift Motor Leg (Right): No drift Motor Leg (Left): No drift Limb Ataxia: Absent Sensory: Normal Best Language: No aphasia Dysarthia: Normal Extinction and Inattention: No abnormality Score: 0 Course Reevaluation(s) Reevaluation #1: Nonspecific generalized weakness, unremarkable labs except for slight troponin elevation with no delta abnormal change, patient normally bradycardic. Patient was in the emergency department monitored for few hours patient is back to his baseline, will discharge the patient to follow-up with his PCP. Time: 03:19 Medical Decision Making Differential Diagnosis Differential Diagnoses: The differential diagnosis associated with the presentation includes (Electrolyte abnormality, dehydration, acute renal insufficiency, ACS, congestive heart failure, pneumonia, UTI.) Admission/Observation Consideration of admission/observation: Escalation of care including admission/observation considered Lab Data MDM Lab Attestation statement: I reviewed the patient's lab results. 11/27/23 22:07 11/27/23 22:07 Labs: Lab Results 11/27/23 11/28/23 11/28/23 Range/Units 22:07 00:10 02:48 WBC 6.7 (4.8-10.8) X10*3/uL RBC 3.79 L (4.60-5.80) X10*6/uL Hgb 11.6 L (14.0-18.0) g/dl Hct 35.5 L (42.0-52.0) % MCV 93.7 (80.0-98.0) fL MCH 30.6 (27.0-33.0) pg MCHC 32.7 (31.0-36.0) g/dl RDW 13.3 (11.0-16.0) % Plt Count 276 (160-400) X10*3/uL MPV 8.9 L (9.4-12.4) fL Immature Gran % (Auto) 0.3 (0.0-0.4) % Neut % (Auto) 63.0 (45-73) % Lymph % (Auto) 26.3 (20-40) % [place] % (Auto) 7.5 (2-11) % Eos % (Auto) 2.6 (0-4) % Baso % (Auto) 0.3 (0-2) % Lymph # (Auto) 1.8 (1.2-4.9) X10*3/uL [place] # (Auto) 0.5 (0.1-1.2) X10*3/uL Eos # (Auto) 0.2 (0.0-0.4) X10*3/uL Baso # (Auto) 0.0 (0.0-0.2) X10*3/uL Abs Immat Gran (auto) 0.02 (0.00-0.03) X10*3/uL Absolute Neuts (auto) 4.2 (2.0-8.3) x10*3/uL Absolute Nucleated RBC 0.000 (0.0-0.012) X10*3/uL Nucleated RBC % (auto) 0.0 (0.0-0.2) /100WBC PT 11.3 (11.1-13.3) SEC INR 0.9 (0.9-1.1) Sodium 143 (135-145) mmol/L Potassium 3.7 (3.3-5.1) mmol/L Chloride 106 (96-108) mmol/L Carbon Dioxide 27 (22-29) mmol/L Anion Gap 14 (12-20) BUN 23 H (9-16) mg/dL Creatinine 0.84 (0.5-1.4) mg/dL Estim Creat Clear Calc 51.8 Estimated GFR > 60 Random Glucose 119 H (60-115) mg/dL Calcium 8.9 D (8.4-10.2) mg/dL Total Bilirubin 0.4 (0.0-1.0) mg/dL AST 25 (5-37) U/L ALT 29 (0-40) U/L Alkaline Phosphatase 92 (39-117) U/L Troponin I High Sens 36.6 H 27.2 (<3.5-35.0) ng/L B-Natriuretic Peptide 76 (<100) pg/mL Total Protein 6.6 (6.5-8.0) g/dL Albumin 4.0 (3.5-5.0) g/dL Urine Color Yellow Urine Appearance Clear Urine pH 6.0 (5.0-9.0) Ur Specific [place] 1.010 (1.005-1.025) Urine Protein Negative (Neg-Trace) mg/dL Urine Glucose (UA) Negative (Negative) mg/dL Urine Ketones Negative (Negative) mg/dL Urine Blood Negative (Negative) Urine Nitrite Negative (Negative) Ur Leukocyte Esterase Negative (Negative) Influenza Type A (PCR) NEGATIVE (Negative) Influenza Type B (PCR) NEGATIVE (Negative) RSV RNA Qual (PCR) NEGATIVE (Negative) SARS-CoV-2 RNA (RT-PCR) NEGATIVE (Negative) Independent Interpretation I performed an independent interpretation of an: EKG (Sinus bradycardia at 46 beats per minute, LBBB, no change from previous EKG.) and Plain X-Ray (Chest:Mild lower lung field increased markings could be secondary to low lung volumes. No acute cardiopulmonary process. ) Radiology Impression Discussion of test interpretation with radiology: I have reviewed the radiologist's reading. (Mild lower lung field increased markings could be secondary to low lung volumes. No acute cardiopulmonary process. ) Discharge Plan Discharge Clinical Impression: Generalized weakness Patient Disposition: Home, Self-Care Instructions: Weakness (ED) Prescriptions: No Action amlodipine 2.5 mg tablet 2.5 mg PO DAILY 90 Days Qty: 90 3RF esomeprazole magnesium 40 mg capsule,delayed release(DR/EC) 40 mg PO BID atorvastatin 80 mg tablet 80 mg PO DAILY Restasis 0.05 % dropperette 1 drp ophthalmic (eye) BID montelukast 10 mg tablet 10 mg PO QPM aspirin [Adult Low Dose Aspirin] 81 mg tablet,delayed release (DR/EC) 81 mg PO DAILY diclofenac potassium 50 mg tablet PO BID PRN valsartan 80 mg tablet 80 mg PO DAILY Referrals: Luciano Mack MD [Primary Care Provider] -
[2023-11-27 22:27] LABS: Basophils Percent Auto 0.3 % (0-2); Eosinophils Absolute Auto 0.2 X10*3/uL (0.0-0.4); Eosinophils Percent Auto 2.6 % (0-4); Hematocrit 35.5 % (42.0-52.0); Hemoglobin 11.6 g/dl (14.0-18.0); Imm Gran Abs Auto 0.02 X10*3/uL (0.00-0.03); Imm Gran Pct Auto 0.3 % (0.0-0.4); Lymphocytes Absolute Auto 1.8 X10*3/uL (1.2-4.9); Lymphocytes Percent Auto 26.3 % (20-40); Mean Corpuscular HGB Conc 32.7 g/dl (31.0-36.0); Mean Corpuscular Hemoglobin 30.6 pg (27.0-33.0); Mean Corpuscular Volume 93.7 fL (80.0-98.0); Mean Platelet Volume 8.9 fL (9.4-12.4); Monocytes Absolute Auto 0.5 X10*3/uL (0.1-1.2); Monocytes Percent Auto 7.5 % (2-11); Neutrophils Absolute Auto 4.2 x10*3/uL (2.0-8.3); Platelet Count 276 X10*3/uL (160-400); Red Blood Count 3.79 X10*6/uL (4.60-5.80); Red Cell Distribution Width 13.3 % (11.0-16.0); White Blood Count 6.7 X10*3/uL (4.8-10.8)
[2023-11-27 22:30] LABS: Alanine Aminotransferase 29 U/L (0-40); Alkaline Phosphatase 92 U/L (39-117); Anion Gap 14 (12-20); Aspartate Amino Transferase 25 U/L (5-37); Bilirubin Total 0.4 mg/dL (0.0-1.0); Blood Urea Nitrogen 23 mg/dL (9-16); Calcium 8.9 mg/dL (8.4-10.2); Carbon Dioxide 27 mmol/L (22-29); Chloride 106 mmol/L (96-108); Creatinine Clr Calc Pharmacy 51.8; Estimated Glomerular Filt Rate > 60; Glucose Random 119 mg/dL (60-115); Potassium 3.7 mmol/L (3.3-5.1); Sodium 143 mmol/L (135-145); Total Protein 6.6 g/dL (6.5-8.0)
[2023-11-27 22:37] LABS: Troponin-I High Sensitivity 36.6 ng/L (<3.5-35.0)
[2023-11-27 22:51] LABS: Influenza A PCR NEGATIVE (Negative); Influenza B PCR NEGATIVE (Negative); Resp Syncy Virus RNA Qual PCR NEGATIVE (Negative); SARS COV2 PCR INHOUSE NEGATIVE (Negative)
[2023-11-28 00:19] VITALS: BP 151/45; PULSE 45; RESP 17; TEMP 36.6; O2SAT 96
[2023-11-28 00:23] LABS: Appearance Urine Clear; Color Urine Yellow; Glucose Urine UA Negative (Negative); Leukocyte Esterase Urine Negative (Negative); Nitrite Urine Negative (Negative); Urine Blood Negative (Negative); Urine Ketones Negative (Negative); Urine Protein Negative (Neg-Trace)
[2023-11-28 02:27] VITALS: BP 146/53; PULSE 96; RESP 17; TEMP 36.5; O2SAT 97
[2023-11-28 03:12] LABS: B Type Natriuretic Peptide 76 pg/mL (<100); Troponin-I High Sensitivity 27.2 ng/L (<3.5-35.0)
== END 2023-11-28 03:43 | disposition home or self-care (01) ==
PROVIDERS: Student in an Organized Health Care Education/Training Program; Emergency Provider Emergency Medicine; PCP Internal Medicine
DX: R53.1 Weakness (principal); R00.1 Bradycardia, unspecified; R06.02 Shortness of breath; Z79.899 Other long term (current) drug therapy; Z20.828 Contact with and (suspected) exposure to other viral communicable diseases; Z11.52 Encounter for screening for COVID-19
CPT/HCPCS: 0241U; 36415; 71045; 80053; 81003; 83880; 84484; 85025; 85610; 93005; 99283; 99285

== ENCOUNTER → 2023-11-27 21:52 | Outpatient (BNV) | payer MEDICARE, OTHER, SELFPAY | PROVIDERS: Emergency Provider Emergency Medicine; PCP Internal Medicine; Visit Provider Internal Medicine Cardiovascular Disease | DX: R94.31 Abnormal electrocardiogram [ECG] [EKG] (principal) | CPT/HCPCS: 93010 ==

== ENCOUNTER → 2024-02-06 09:04 | Outpatient (REF) | payer MEDICARE, OTHER, SELFPAY ==
--- NOTE | 2024-02-06 09:06 | CA_ITS ---
Transthoracic Echocardiogram Patient (Last, First, Middle): Riccardo Pierson J Gender: Male Date of : 1945 Age: 78 Procedure Date: 02/06/2024 Procedure Type: Transthoracic Echocardiogram Location: OP Height: 154.94 cm Weight: 53.07 kg BSA: 1.50 m2 Heart Rate: bpm BP: 140 / 66 mmHg Triage Register Nurse: TO Referring MD: Driss Aguero MD Symptoms: I35.0 - Nonrheumatic aortic (valve) stenosis Study Quality: Adequate ECG Rhythm: Bradycardia Conclusions: - The left ventricular systolic function is normal. The calculated ejection fraction is 60% by biplane method. - There is moderate septal asymmetric hypertrophy. - There is mild aortic valve stenosis. Findings Left Ventricle Normal left ventricular cavity size. There is mildly increased left ventricular wall thickness. The left ventricular systolic function is normal. The calculated ejection fraction is 60% by biplane method. There is no evidence of regional wall motion abnormalities. Evidence suggests grade I (mild) diastolic dysfunction. There is moderate septal asymmetric hypertrophy. LV peak GLS -19.3%. Right Ventricle Normal right ventricular cavity size. There is mildly decreased right ventricular systolic function. Atria The left atrium is moderately dilated. The right atrium is mildly dilated. Aortic Valve There is a normal trileaflet aortic valve. There is mild calcification of the aortic valve. There is mild aortic valve stenosis. There is trace (trivial) aortic valve regurgitation. Mitral Valve The mitral valve appears normal. There is trace mitral valve regurgitation. There is no mitral valve stenosis. Pulmonic Valve There is trace to mild pulmonic valve regurgitation. Tricuspid Valve Normal tricuspid valve structure. There is mild tricuspid valve regurgitation. There is no evidence of pulmonary hypertension. Great Vessels The asc aorta is normal in size. Venous The inferior vena cava is normal in size and collapses greater than 50% with inspiration. Pericardium/Pleural There is no evidence of pericardial effusion. Prior Study Comparison No significant change compared to prior study dated: 02/06/2023. Measurements 2D Linear Measurements IVSd: 1.37 0.6-0.9/0.6-1.0 cm LVIDd: 4.28 3.9-5.3/4.2-5.9 cm LVIDd Index: 2.85 2.4-3.2/2.2-3.1 cm/m2 LVIDs: 2.92 2.0-3.6 cm LVPWd: 1.05 0.7-1.1 cm LA Diam: 4.50 2.7-3.8/3.0-4.0 cm LAIDs Index: 3.00 1.5-2.3 cm/m2 LV Mass: 231.25 67-162/88-224 g LV Mass Index: 154.17 43-95/49-115 g/m2 LVOT Diam: 2.20 3.0+(-)1.3 cm 2D Systolic Function EF 4C: 57.40 >55% EF 2C: 58.30 >55% EF BiP: 59.80 >55% Mitral Valve MV Pk E: 0.47 MV PK A: 0.49 MV Decel Time: 326.00 E/A: 1.00 E'Lateral: 5.22 E'Medial: 4.35 E/E' Med: 10.80 E/E' Lat: 9.00 PHT: 96.00 MVA PHT: 2.29 Decel [place]: 1.44 Aortic Valve AoV Pk Sigifredo: 1.89 AoV Mn Sigifredo: 1.38 AoV VTI: 0.45 AoV Pk Grad: 14.00 Aov Mn Grad: 8.00 HANNAH Cont.VTI: 1.65 LVOT LVOT Pk Sigifredo: 0.76 LVOT Mn Sigifredo: 0.50 LVOT VTI: 0.19 LVOT Pk Grad: 2.00 LVOT Mn Grad: 1.00 LVOT Diam: 2.20 LVOT Area: 3.80 Diastolic Function MV Pk E: 0.47 MV Pk A: 0.49 E/A: 1.00 E'Medial: 4.35 E/E' Med: 10.80 E' Laterial: 5.22 E/E' Lat: 9.00 Right Ventricle TAPSE (mm): 13.30 TVS' Sigifredo: 8.81 Tricuspid Valve TR Pk Sigifredo: 2.27 TR Pk Grad: 21.00 RA Press: 3.00 RVSP: 24.00 Great Vessels Aorta Sinus of Valsalva: 3.56 2.0-3.5 cm Ao Asc: 3.70 2.1-3.4 cm Ao Arch: 3.30 Updated in Other Vendor System with Status of Final Filiberto Stewart MD electronically signed on 02/07/2024 2:38:31 PM with status of Final
== END ==
LOC: HO.CARD 09:04
PROVIDERS: PCP Internal Medicine; Visit Provider Internal Medicine Cardiovascular Disease
DX: I35.0 Nonrheumatic aortic (valve) stenosis (principal)
CPT/HCPCS: 93306; 93356

== ENCOUNTER → 2024-02-06 09:06 | Outpatient (BNV) | payer MEDICARE, OTHER, SELFPAY | PROVIDERS: PCP Internal Medicine; Visit Provider Internal Medicine | DX: I35.2 Nonrheumatic aortic (valve) stenosis with insufficiency (principal) | CPT/HCPCS: 93306; 93356 ==

== ENCOUNTER 2024-02-13 09:22 | Outpatient (AMB) | payer MEDICARE, OTHER, SELFPAY ==
[2024-02-13 09:25] VITALS: BP 120/74; PULSE 58; BMI 23.3
--- NOTE | 2024-02-13 09:25 | MHC.OFFVIS ---
Vital Signs 02/13/24 09:25 Height 5 ft 1 in Weight 123 lb 7.342 oz BMI 23.3 BP 120/74 Blood Pressure Location Lt brachial Position Sitting Pulse 58 Intake Visit Reasons: 3 month follow up after echo Intake Note: 3 month follow-up after echo feeling good Coke Drawer Hand Required: No Transfer Worker: Transfer Worker Present Accompanied by: Spouse Allergies No Known Allergies [No Known Allergies*] Allergy (Unverified 11/27/23 21:48) seasonal Allergy (Unknown, Uncoded 11/27/23 21:48) Unknown Medication List - Last Reconciled 02/13/24 by Driss Aguero MD amlodipine 2.5 mg PO DAILY aspirin (Adult Low Dose Aspirin) 81 mg PO DAILY atorvastatin 80 mg PO DAILY cyclosporine 0.05% 1 drp ophthalmic (eye) BID diclofenac potassium mg PO BID PRN esomeprazole magnesium 40 mg PO BID montelukast 10 mg PO QPM valsartan 80 mg PO DAILY HPI Comments Details: Riccardo comes for follow-up, accompanied by his . He has been doing well. Continues to walk 3 miles without any significant issues. Recent echocardiogram shows normal LV ejection fraction with mild aortic stenosis. Denies any symptoms of angina. Takes all his medications. Recently was in the ED with symptoms of profound weakness that lasted for a day or so. Symptoms since then have subsided. He does not have persistent shortness of breath or fatigue. No orthopnea, PND, leg edema. No worsening cognitive dysfunction. [facility] Medical History Cardiomyopathy LBBB (left bundle branch block) Hyperlipidemia CVA (cerebral vascular accident) CAD (coronary artery disease) Surgical History S/P CABG x 3 Hx of colonoscopy History of nasal surgery Hx of cardiac cath Family History Father CVD (cardiovascular disease) Mother Cancer Social History Alcohol intake: current Review of Systems Const Denies chills, Denies fatigue, Denies fever(s), Denies frequent falls, Denies weakness, Denies weight gain and Denies weight loss ENT Denies dizziness Card Denies chest pain, Denies leg edema, Denies lightheadedness, Denies palpitations, Denies dyspnea, Denies dyspnea on exertion, Denies orthopnea and Denies other (loss of consciousness) Resp Denies cough, Denies dyspnea and Denies dyspnea on exertion GI Denies hematochezia and Denies change in stool character Musc Denies abnormal gait, Denies muscle weakness, Denies numbness, Denies radiating pain into limb and Denies tingling Neuro Denies abnormal gait, Denies dizziness, Denies frequent falls, Denies numbness, Denies tingling and Denies weakness Endo Denies fatigue and Denies palpitations Physical Exam Vital Signs: Last Vital Signs Pulse 58 02/13/24 09:25 BP 120/74 02/13/24 09:25 BMI result Body Mass Index 23.3 Const General: cooperative, comfortable, alert and awake Nutritional Appearance: thin Orientation/consciousness: patient oriented x3 Limitations: no limitations Neck Neck: Yes trachea midline, Yes supple and Yes no JVD Chest Chest palpation & inspection: normal inspection of the chest and other (Well-healed sternotomy scar) Resp Effort & Inspection: normal respiratory effort Auscultation: clear to auscultation bilaterally Cardio Jugular venous distension: no JVD Palpation: normal PMI Rate: regular rate Rhythm: regular rhythm Heart sounds: S1 normal heart sound present, S2 normal heart sound present and Murmur heart sound present systolic early Skin General skin exam: no rashes or lesions noted Neuro General: patient oriented x3 and no focal motor deficits Extrem General: Yes no clubbing, cyanosis or edema Psych Appearance: grossly normal Assessment & Plan Assessment & Plan (1) CAD (coronary artery disease): Code(s): I25.10 - Atherosclerotic heart disease of hoh coronary artery without angina pectoris Category: Medical Plan: CAD with remote coronary artery bypass grafting 2016 with good functional capacity at this point time. Continue current medical therapy. Low-dose aspirin therapy for life. Continue high-intensity statin therapy with target goal LDL closer to 60 mg/dL. Less being pursue through office. Please forward me a copy as well. Continue current aggressive blood pressure control which is currently well optimized. Goal blood pressure less than 130/84. Advised to monitor blood pressure intermittently at home and maintain a log. Advised to call me with any new symptoms of angina. Management of CAD and pathophysiology CAD was discussed again. Advised to maintain activity level as tolerated. (2) Aortic stenosis: Code(s): I35.0 - Nonrheumatic aortic (valve) stenosis Category: Medical Plan: Aortic stenosis remains mild. No interventions required. Continue aggressive vascular risk factor modification above. Follow-up echocardiogram in 1 year's time. Gradual progressive nature of calcific aortic stenosis was discussed although requires no interventional therapy at this point time. Follow up in the clinic in 1 year's time, sooner p.r.n.. Thank you for allowing me to partake in his care Coding Level of Care Code Est Pt Level 4 (43244) Diagnoses CAD (coronary artery disease) I25.10 Aortic stenosis I35.0
== END 2024-02-13 09:44 | disposition home or self-care (01) ==
PROVIDERS: PCP Internal Medicine; Visit Provider Internal Medicine Cardiovascular Disease
DX: I25.10 Atherosclerotic heart disease of native coronary artery without angina pectoris (principal); I35.0 Nonrheumatic aortic (valve) stenosis
CPT/HCPCS: 99214

== ENCOUNTER → 2024-02-13 09:22 | Outpatient (BNVA) | payer MEDICARE, OTHER, SELFPAY | PROVIDERS: Visit Provider Internal Medicine Cardiovascular Disease | DX: I25.10 Atherosclerotic heart disease of native coronary artery without angina pectoris (principal); I35.0 Nonrheumatic aortic (valve) stenosis; Z79.82 Long term (current) use of aspirin; Z79.899 Other long term (current) drug therapy | CPT/HCPCS: 99212 ==

== ENCOUNTER 2024-04-01 11:20 | Outpatient (REF) | payer MEDICARE, OTHER, SELFPAY ==
[2024-04-01 11:23] LABS: MANUAL DIFF FLAG NO
[2024-04-01 11:27] LABS: Basophils Percent Auto 0.4 % (0-2); Eosinophils Absolute Auto 0.1 X10*3/uL (0.0-0.4); Hematocrit 40.8 % (42.0-52.0); Hemoglobin 13.3 g/dl (14.0-18.0); Imm Gran Abs Auto 0.03 X10*3/uL (0.00-0.03); Imm Gran Pct Auto 0.5 % (0.0-0.4); Lymphocytes Absolute Auto 1.8 X10*3/uL (1.2-4.9); Mean Corpuscular HGB Conc 32.6 g/dl (31.0-36.0); Mean Corpuscular Hemoglobin 30.9 pg (27.0-33.0); Mean Corpuscular Volume 94.7 fL (80.0-98.0); Mean Platelet Volume 9.8 fL (9.4-12.4); Monocytes Absolute Auto 0.4 X10*3/uL (0.1-1.2); Monocytes Percent Auto 6.9 % (2-11); Neutrophils Absolute Auto 3.2 x10*3/uL (2.0-8.3); Neutrophils Percent Auto 57.2 % (45-73); Platelet Count 292 X10*3/uL (160-400); Red Blood Count 4.31 X10*6/uL (4.60-5.80); Red Cell Distribution Width 12.6 % (11.0-16.0); White Blood Count 5.5 X10*3/uL (4.8-10.8)
[2024-04-01 11:46] LABS: Alanine Aminotransferase 19 U/L (0-40); Albumin Level 4.5 g/dL (3.5-5.0); Alkaline Phosphatase 78 U/L (39-117); Anion Gap 13 (12-20); Aspartate Amino Transferase 25 U/L (5-37); Bilirubin Total 0.9 mg/dL (0.0-1.0); Blood Urea Nitrogen 27 mg/dL (9-16); Calcium 9.8 mg/dL (8.4-10.2); Carbon Dioxide 27 mmol/L (22-29); Chloride 103 mmol/L (96-108); Cholesterol 143 mg/dL (<200); Estimated Glomerular Filt Rate > 60; Glucose Fasting 90 mg/dL (60-99); HDL Cholesterol 37 mg/dL (>40); LDL Cholesterol Calculated 76 mg/dL (<100); Potassium 4.1 mmol/L (3.3-5.1); Sodium 139 mmol/L (135-145); Triglycerides 150 mg/dL (<150)
[2024-04-01 12:03] LABS: PSA,Total (Free>4and<10) 0.55 ng/mL (0.00-4.00)
[2024-04-01 12:10] LABS: Appearance Urine Clear; Color Urine Yellow; Glucose Urine UA Negative (Negative); Leukocyte Esterase Urine Negative (Negative); Nitrite Urine Negative (Negative); Specific Gravity - Urine 1.025 (1.005-1.025); Urine Blood Negative (Negative); Urine Ketones Negative (Negative); Urine Protein Negative (Neg-Trace)
[2024-04-01 12:14] LABS: Bacteria Urine None Seen (None Seen); Hyaline Casts Urine 0-2 /LPF (0-2); RBC Urine 0-2 /HPF (0-2); Squamous Epithelial Cell Urine 0-2 /HPF (0-2); WBC Urine 0-5 /HPF (0-5)
[2024-04-01 15:17] LABS: Reflex LDLD? No
[2024-04-08 17:18] LABS: Testosterone, Free 42.4 pg/mL (30.0-135.0); Testosterone, Total 324 ng/dL (250-1100)
== END 2024-04-01 11:21 | disposition home or self-care (01) ==
LOC: HO.LNP 11:20
PROVIDERS: Visit Provider Internal Medicine
DX: I10 Essential (primary) hypertension (principal); E29.1 Testicular hypofunction; E78.00 Pure hypercholesterolemia, unspecified; N40.0 Benign prostatic hyperplasia without lower urinary tract symptoms; E78.9 Disorder of lipoprotein metabolism, unspecified; Z12.5 Encounter for screening for malignant neoplasm of prostate
CPT/HCPCS: 80053; 80061; 81001; 84153; 84402; 84403; 85025

== ENCOUNTER 2024-04-11 08:23 | Emergency (ER) | payer MEDICARE, OTHER, SELFPAY ==
[2024-04-11 08:24] VITALS: BP 175/65; PULSE 48; RESP 16; TEMP 36.6; O2SAT 97; BMI 22.8
--- NOTE | 2024-04-11 09:16 | ED_ITS ---
HPI - Eye Problem General Chief complaint: Eye Problems Stated complaint: Vision issues Time Seen by Provider: 04/11/24 08:38 Source: patient and family Mode of arrival: ambulatory Limitations: no limitations History of Present Illness ED Provider: Dr. Valdivia HPI Narrative: Patient noticed over the last three days that he had right eye upper lateral quadrant loss of vision. Denies coughing or trauma, no pain, no other weakness or dizziness Onset (ago): day(s) Duration: constant Location: right eye Related Data Home Medications ?Medication ?Instructions ?Recorded ?Confirmed aspirin 81 mg tablet,delayed 81 mg PO DAILY 02/02/21 02/13/24 release (Adult Low Dose Aspirin) atorvastatin 80 mg tablet 80 mg PO DAILY 02/02/21 02/13/24 cyclosporine 0.05 % eye drops in a 1 drp ophthalmic (eye) BID 02/02/21 02/13/24 dropperette esomeprazole magnesium 40 mg 40 mg PO BID 02/02/21 02/13/24 capsule,delayed release montelukast 10 mg tablet 10 mg PO QPM 02/02/21 02/13/24 diclofenac potassium 50 mg tablet mg PO BID PRN 11/01/22 02/13/24 valsartan 80 mg tablet 80 mg PO DAILY 11/01/22 02/13/24 Previous Rx's ?Medication ?Instructions ?Recorded amlodipine 2.5 mg tablet 2.5 mg PO DAILY #90 tabs 11/28/23 Allergies Allergy/AdvReac Type Severity Reaction Status Date / Time No Known Allergies Allergy Unverified 11/27/23 21:48 [No Known Allergies*] seasonal Allergy Unknown Unknown Uncoded 04/11/24 08:30 Review of Systems Review of Systems: Yes all other systems are reviewed and are negative Neurologic: Denies Sensory deficit (Neuro) [facility] Past Medical History Medical History Cardiomyopathy LBBB (left bundle branch block) Hyperlipidemia CVA (cerebral vascular accident) CAD (coronary artery disease) Surgical History S/P CABG x 3 Hx of colonoscopy History of nasal surgery Hx of cardiac cath Family History Family History Father CVD (cardiovascular disease) Mother Cancer Social History Social History Alcohol intake: current Advance Directives: Yes Advance Directives Information Provided: Yes Advance Directives on File: No Physical Exam Vital Signs: Vital Signs: Last Vital Signs Temp 98.5 F 04/11/24 09:44 Pulse 88 04/11/24 09:44 Resp 16 04/11/24 09:44 BP 132/87 04/11/24 09:44 Pulse Ox 96 04/11/24 09:44 O2 Del Method Room Air 04/11/24 08:24 BMI result Body Mass Index 22.8 Const: General: healthy appearing Nutritional Appearance: average body habitus Orientation/consciousness: oriented to person and patient oriented x3 Limitations: no limitations HEENT: Head: Yes normal to inspection Ears: external ears normal General nose exam: Normal external nose present Mouth: Normal oral and palatal mucosa present and oropharynx normal Throat: Yes posterior oropharynx normal Eyes: Other: right eye upper lateral quadrant loss of vision, left eye normal General: appearance normal, both eyes and all related structures Neck: Other: supple Neck: Yes normal visual inspection Chest: Chest palpation & inspection: normal inspection of the chest Resp: Auscultation: clear to auscultation bilaterally Cardio: Jugular venous distension: no JVD Rate: regular rate Rhythm: regular rhythm Heart sounds: S1 normal heart sound present and S2 normal heart sound present GI: Inspection: Yes normal to inspection Palpation (GI): Soft to palpation, nontender and No hepatosplenomegaly present Auscultation: normal bowel sounds : General: Yes no CVA tenderness Back/Spine/Pelvis: Back: no CVA tenderness Skin: General skin exam: no rashes or lesions noted Neuro: General: oriented to person and patient oriented x3 Cranial nerves: Yes CN's II-XII intact bilaterally Motor exam (neuro): 5/5 motor strength present throughout Sensory Exam: No Sensory deficit (Neuro) Extrem: General: Yes normal to inspection Psych: Appearance: grossly normal Course Reevaluation(s) Reevaluation #1: Patient with likely retinal detachment will refer to optho Time: 09:26 Medical Decision Making Differential Diagnosis Differential Diagnoses: The differential diagnosis associated with the presentation includes (retinal detatchment, vitreous hemorrhage, stroke) Admission/Observation Consideration of admission/observation: Escalation of care including admission/observation considered (upon arrival admission was considered) Independent Historian Clinical information obtained from an independent historian. History obtained from or confirmed by: Spouse Tests considered The following testing was considered but not selected: CT of brain considered but patient non focal Discharge Plan Discharge Clinical Impression: Retinal detachment Patient Disposition: Home, Self-Care Instructions: Visual Floaters (ED), Surgery for Retinal Detachment (DC) Prescriptions: No Action amlodipine 2.5 mg tablet 2.5 mg PO DAILY Qty: 90 3RF esomeprazole magnesium 40 mg capsule,delayed release(DR/EC) 40 mg PO BID atorvastatin 80 mg tablet 80 mg PO DAILY Restasis 0.05 % dropperette 1 drp ophthalmic (eye) BID montelukast 10 mg tablet 10 mg PO QPM aspirin [Adult Low Dose Aspirin] 81 mg tablet,delayed release (DR/EC) 81 mg PO DAILY diclofenac potassium 50 mg tablet PO BID PRN valsartan 80 mg tablet 80 mg PO DAILY Referrals: Ortiz Oliver [Physician] - 5 days Interventions: ED Discharge Assessment Last Done: 04/11/24 09:44 Discharge Date/Time: 04/11/24 09:45 Print Language: Romanian
[2024-04-11 09:44] VITALS: BP 132/87; PULSE 88; RESP 16; TEMP 36.9; O2SAT 96
== END 2024-04-11 09:45 | disposition home or self-care (01) ==
PROVIDERS: Emergency Provider Emergency Medicine; PCP Internal Medicine
DX: H33.21 Serous retinal detachment, right eye (principal); H54.61 Unqualified visual loss, right eye, normal vision left eye; Z79.899 Other long term (current) drug therapy
CPT/HCPCS: 99282

== ENCOUNTER 2024-05-10 11:20 | Day surgery (SDC) | payer MEDICARE, OTHER, SELFPAY ==
[2024-05-08 14:49] VITALS: BMI 21.9
--- NOTE | 2024-05-09 09:46 | P.CONAN_ITS ---
Documented by User: Paulina Chávez NP 05/09/24 09:55 HPI - Anesthesia Eval Consult details Narrative: 79yo M for Upper Endoscopy and Colonoscopy Follows [facility] cardiology for CAD with CABG x 3 2015, Mild . Stable at last office visit 01/2024 with walking 3 miles daily [facility] ED 04/11/24 with eye injury, F/U with ophthalmology dx'd visceral tear, no intervention [facility] Active Problems Active Problems: All Active Problems Aortic stenosis (Acute) Cardiomyopathy (Acute) LBBB (left bundle branch block) (Acute) Hyperlipidemia (Acute) CAD (coronary artery disease) (Acute) Past Medical History Medical History GERD (gastroesophageal reflux disease) Osteoarthritis Sleep apnea HTN (hypertension) Cardiomyopathy LBBB (left bundle branch block) Hyperlipidemia CVA (cerebral vascular accident) CAD (coronary artery disease) Family History Family History Father CVD (cardiovascular disease) Mother Cancer Surgical History Surgical History History of esophagogastroduodenoscopy (EGD) S/P CABG x 3 Hx of colonoscopy History of nasal surgery Hx of cardiac cath Social History Social History Alcohol intake: current Patient Tobacco Use Status: Never used Tobacco Advance Directives: No Advance Directives Information Provided: Yes Meds Allergies Allergy/AdvReac Type Severity Reaction Status Date / Time Seasonal Allergies Allergy Unknown Unknown Verified 05/08/24 14:47 Home Medications ?Medication ?Instructions ?Recorded ?Confirmed ?Last Taken ?Type aspirin 81 mg tablet,delayed 81 mg PO DAILY 02/02/21 05/08/24 Unknown History release (Adult Low Dose Aspirin) atorvastatin 80 mg tablet 80 mg PO DAILY 02/02/21 05/08/24 Unknown History cyclosporine 0.05 % eye drops in a 1 drp ophthalmic (eye) BID 02/02/21 05/08/24 Unknown History dropperette esomeprazole magnesium 40 mg 40 mg PO BID 02/02/21 05/08/24 Unknown History capsule,delayed release montelukast 10 mg tablet 10 mg PO QPM 02/02/21 05/08/24 Unknown History diclofenac potassium 50 mg tablet 50 mg PO BID PRN Pain 11/01/22 05/08/24 Unknown History valsartan 80 mg tablet 80 mg PO DAILY 11/01/22 05/08/24 Unknown History Exam Height,Weight and Vital Signs: Height 5 ft 2 in Weight 54.431 kg Pertinent Lab Results Pertinent Lab Results: Laboratory Tests 04/01/24 Unknown WBC 5.5 Hgb 13.3 L Hct 40.8 L Plt Count 292 Sodium 139 Potassium 4.1 Chloride 103 Carbon Dioxide 27 BUN 27 H Creatinine 1.04 Narrative Narrative: ECHO 2023 Conclusions: - The left ventricular systolic function is normal. The calculated ejection fraction is 60% by biplane method. - There is moderate septal asymmetric hypertrophy. - There is mild aortic valve stenosis. EKG 11/2023 Vent. Rate : 046 BPM Atrial Rate : 046 BPM P-R Int : 176 ms QRS Dur : 148 ms QT Int : 502 ms P-R-T Axes : 048 -39 086 degrees QTc Int : 439 ms Sinus bradycardia Left axis deviation Left bundle branch block Abnormal ECG No previous ECGs available Assessment and Plan Assessment Anesthesia Assessment: Chart Reviewed Documented by User: Bri Simon MD 05/10/24 11:50 PMFSH Past Medical History Medical History GERD (gastroesophageal reflux disease) Osteoarthritis Sleep apnea HTN (hypertension) Cardiomyopathy LBBB (left bundle branch block) Hyperlipidemia CVA (cerebral vascular accident) CAD (coronary artery disease) Family History Family History Father CVD (cardiovascular disease) Mother Cancer Family history of problems with anesthesia: No Surgical History Surgical History History of esophagogastroduodenoscopy (EGD) S/P CABG x 3 Hx of colonoscopy History of nasal surgery Hx of cardiac cath History of Problems with Anesthesia: No Social History Social History Alcohol intake: current Patient Tobacco Use Status: Never used Tobacco Advance Directives: No Advance Directives Information Provided: Yes Meds Allergies Allergy/AdvReac Type Severity Reaction Status Date / Time Seasonal Allergies Allergy Unknown Unknown Verified 05/08/24 14:47 Home Medications ?Medication ?Instructions ?Recorded ?Confirmed ?Last Taken ?Type aspirin 81 mg tablet,delayed 81 mg PO DAILY 02/02/21 05/08/24 Unknown History release (Adult Low Dose Aspirin) atorvastatin 80 mg tablet 80 mg PO DAILY 02/02/21 05/08/24 Unknown History cyclosporine 0.05 % eye drops in a 1 drp ophthalmic (eye) BID 02/02/21 05/08/24 Unknown History dropperette esomeprazole magnesium 40 mg 40 mg PO BID 02/02/21 05/08/24 Unknown History capsule,delayed release montelukast 10 mg tablet 10 mg PO QPM 02/02/21 05/08/24 Unknown History diclofenac potassium 50 mg tablet 50 mg PO BID PRN Pain 11/01/22 05/08/24 Unknown History valsartan 80 mg tablet 80 mg PO DAILY 11/01/22 05/08/24 Unknown History Exam Airway Mallampati Class: II TM Dist: <=3cm Neck ROM: Poor Heart: rrr Lungs: cta Assessment and Plan Assessment Anesthesia Assessment: Anesthesia Plan Discussed Final Anesthetic Review Family History of Problems with Anesthesia: No History of Problems with Anesthesia: No NPO: Yes ASA Class: III Final Preanesthetic Review: No Changes in Pt Med Stat, Meds/Allgs Chart Reviewed, Consent Obtained/Reviewed and Anes Risks/Benef Reviewed Patient Risk: Intermediate Procedure Risk: Low Anesthetic Plan Anesthetic Plan: MAC: Disposition: Standard PACU
--- NOTE | 2024-05-10 11:32 | MHC.SHP ---
Pre-Procedural Eval Section A - 24 Hr Update-Section A only Date of Service: 05/10/24 The patient is an INPATIENT: No Changes since office visit: No Cold of Flu in the past 2 weeks, No New Medical Problems, No Changes in Medication and No Patient answered all questions The patient has been examined within 24 hours of the surgical procedure. The History & Physical has been completed within 30 days and I have reviewed it.: Yes Section B - Complete if H&P > 30 days Chief Complaint: Gastro-esophageal reflux disease without esophagit Allergies: Allergies Allergy/AdvReac Type Severity Reaction Status Date / Time Seasonal Allergies Allergy Unknown Unknown Verified 05/08/24 14:47 Plan I have reviewed the history and physical and performed a pertinent physical examination on my patient. No changes have occurred unless specified. Time Spent With Patient Time: Total time managing care of this patient today ____ minutes.
[2024-05-10 11:38] VITALS: BMI 21.0
[2024-05-10 11:56] VITALS: BP 109/52; PULSE 51; RESP 16; TEMP 36.5; O2SAT 96
[2024-05-10] MEDS: Lactated Ringers 1,000 ML 100 ML IVCONT (11:59)
[2024-05-10 12:50] VITALS: BP 108/48; PULSE 48; RESP 16; TEMP 36.8; O2SAT 99
[2024-05-10 13:05] VITALS: BP 104/47; PULSE 42; RESP 16; O2SAT 99
[2024-05-10 13:20] VITALS: BP 104/56; PULSE 49; RESP 16; O2SAT 99
--- NOTE | 2024-05-10 13:21 | OP_ITS ---
DATE OF SERVICE: 05/10/2024 SURGEON: Jameel Reyes MD INDICATIONS: Abnormal findings in stool, change in bowel habits, and gastroesophageal reflux disease without esophagitis. PREOPERATIVE DIAGNOSIS: POSTOPERATIVE DIAGNOSIS: PROCEDURE PERFORMED: 1. Colonoscopy to the terminal ileum. 2. Upper endoscopy. ESTIMATED BLOOD LOSS: COMPLICATIONS: ANESTHESIA: ASSISTANTS: SPECIMENS: DESCRIPTION OF PROCEDURE: A history and physical was performed. The risks and benefits of the procedure were explained to the patient. Informed consent was obtained. The patient was placed in the left lateral decubitus position. A digital rectal exam was performed. The Olympus pediatric video colonoscope was introduced into the rectum and advanced to the cecum. The cecum was identified by transillumination, palpation, and identification of ileocecal valve. Examination was performed. The scope was removed. He tolerated the procedure well and was repositioned for endoscopy. The Olympus video gastroscope was introduced into the esophagus, stomach, and duodenum. Examination was performed. The scope was removed. He tolerated both procedures well and was returned to the recovery area in stable condition. FINDINGS: Colonoscopy: The terminal ileum was normal. The visualized colonic mucosa was normal. There was some stool coating the mucosa in the right colon, which limited the sensitivity examination for detection of small polyps. This was washed and suctioned as best possible. No polyps were identified. There was moderate sigmoid diverticulosis. Retroflexed examination showed some internal hemorrhoids. Upper endoscopy: 1. Esophagus: The esophagus was normal. There was no esophagitis. 2. Stomach: The stomach showed multiple benign-appearing polyps in the body and fundus, consistent with fundic gland polyps, which were previously evaluated and biopsied on his last endoscopy. No biopsies were obtained. 3. Duodenum: The bulb and 2nd portion were normal. IMPRESSION: 1. Diverticulosis, normal colonoscopy. 2. Gastric polyps, otherwise normal upper endoscopy. 3. Screening colonoscopy is not recommended based on age. RECOMMENDATION: Follow up as needed. MD EDUARD Gannon/MIRNA / [id number] MIROSLAVA
[2024-05-10 13:34] VITALS: BP 155/56; PULSE 50; RESP 16; TEMP 36.2; O2SAT 97
== END 2024-05-10 13:55 | disposition home or self-care (01) ==
PROVIDERS: PCP Internal Medicine; Visit Provider Internal Medicine Gastroenterology
PROC: (CPT 45378; principal; 2024-05-10 13:30)
DX: R19.5 Other fecal abnormalities (principal); R19.4 Change in bowel habit; K57.30 Diverticulosis of large intestine without perforation or abscess without bleeding; K64.8 Other hemorrhoids; K21.9 Gastro-esophageal reflux disease without esophagitis; K31.7 Polyp of stomach and duodenum; I10 Essential (primary) hypertension; I25.10 Atherosclerotic heart disease of native coronary artery without angina pectoris; Z95.1 Presence of aortocoronary bypass graft; Z86.73 Personal history of transient ischemic attack (TIA), and cerebral infarction without residual deficits; E78.00 Pure hypercholesterolemia, unspecified; J30.2 Other seasonal allergic rhinitis; G47.33 Obstructive sleep apnea (adult) (pediatric); Z79.82 Long term (current) use of aspirin; Z79.899 Other long term (current) drug therapy
CPT/HCPCS: 45378; 43235; J1100; J1596; J2704

== ENCOUNTER 2024-10-14 11:37 | Outpatient (REF) | payer MEDICARE, OTHER, SELFPAY ==
[2024-10-14 12:57] LABS: Alanine Aminotransferase 22 U/L (0-40); Albumin Level 4.2 g/dL (3.5-5.0); Alkaline Phosphatase 76 U/L (39-117); Aspartate Amino Transferase 35 U/L (5-37); Bilirubin Direct 0.2 mg/dL (0.0-0.5); Bilirubin Total 0.5 mg/dL (0.0-1.0); Cholesterol 138 mg/dL (<200); HDL Cholesterol 35 mg/dL (>40); LDL Cholesterol Calculated 53 mg/dL (<100); Total Protein 6.7 g/dL (6.5-8.0); Triglycerides 253 mg/dL (<150)
--- OUTSIDE RECORDS SUMMARY | 2024-10-14 13:26 | XMS_ITS | Continuity of Care Document ---
Author Organization [facility] Address [address] [place] [phone] Phone Care Team Providers Care Thermostat Machine Tender Name Role Phone Roxana Jackson M.D. Unavailable Unavailable Medications Medication Instructions Dosage Effective Dates (start - stop) Status Comments Restasis 0.05 % Eye Dropperette instill 1 drop by ophthalmic route every 12 hours into affected eye(s) 1.00 drop - Active CELEBREX - Active Acular 0.5 % Eye Drops instill 1 drop three tiomes a day into left eye - Active Generic PROVIGIL (unknown strength) take 2 tablet by oral route every day in the morning Not Available - Active amlodipine 10 mg tablet - Active Lovaza 1 gram Cap take 2 capsule (2G) by oral route 2 times every day 2 G - Active Cialis 20 mg Tab take 1 tablet (20MG) by oral route every day 20 MG - Active LIPITOR (unknown strength) Not Available - Active PRILOSEC (unknown strength) Not Available - Active Procedures Procedure Date PQRI ERx Submitted Post Op PQRI ERx Submitted Comp. Exam Punctal Insertion Punctal Insertion PQRI ERx Submitted Ophth Svc Int Punctal Insertion Punctal Insertion PQRI ERx Submitted Ophth Svc Int PQRI ERx Submitted Ophth Svc Int PQRI ERx Submitted Punctal Insertion Punctal Insertion PQRI ERx Submitted Ophth Svc Int PQRI ERx Submitted Ophth Svc Int PQRI ERx Submitted Ophth Svc Int PQRI ERx Submitted Interm New Exam Advance Directives Directive Yes / No Effective Date File Name No Information Encounters Encounter Description Practice Location Reason(s) For Visit Diagnoses Date Provider Providers Copied on Encounter [facility], [address] [place] [address], [id number], tel:[phone] [facility] No Information 2 Renetta Schmidt. [address] [place] [address], [id number] , . tel: [phone] [facility], [address] [place] [address], [id number], tel:[phone] [facility] [place] Keratoconjunctivi tis Sicca Jul- 2 Renetta Schmidt. [address] [place] [address], [id number] , [place]. tel: [phone] Referring Provider: Jah Garcia, [address] [place] [address], [id number]. tel:[phone] [facility], [address] [place] [address], [id number], tel:[phone] [facility] Keratoconjunctivi tis SiccaMyopiaRecurr ent Erosion Syndrome 2 Heather Rush. [address] [place] [address], [id number] , [place]. tel: [phone] Referring Provider: Jah Garcia, [address] [place] [address], [id number]. tel:[phone] [facility], [address] [place] [address], [place], [id number], tel:[phone] [facility] Keratoconjunctivi tis SiccaMyopiaRecurr ent Erosion Syndrome 2 Geffin Victor Manuel. [address] [place] [address], [id number] , . tel: [phone] Referring Provider: Jah Garcia, [address] [place] [address], [facility]. tel:[phone] [facility], [address] [place] [address], [id number], tel: [phone] [facility] [place] Recurrent Erosion SyndromeKeratocon junctivitis SiccaMyopia 2 Geffin Victor Manuel. [address] [place] [address], [id number] , . tel: [phone] Referring Provider: Jah Garcia, [address] [place] [address], [facility]. tel:[phone] [facility], [address] [place] [address], [id number], [place] tel:[phone] [facility] [place] Recurrent Erosion SyndromeKeratocon junctivitis Sicca 2 Geffin Victor Manuel. [address] [place] [address], [id number] , . tel: [phone] Referring Provider: Jah Garcia, [address] [place] [address], [facility]. tel:[phone] [facility], [address] [place] [address], [id number], [place] tel:[phone] [facility] [place] Recurrent Erosion SyndromeKeratocon junctivitis SiccaMyopia 2 Geffin Victor Manuel. [address] [place] [address], [id number] , . tel: [phone] Referring Provider: Jah Garcia, [address] [place] [address], [facility]. tel:[phone] [facility], [address] [place] [address], [id number], tel: [phone] [facility] [place] Recurrent Erosion Syndrome Apr-2 6 2 Geffin Victor Manuel. [address] [place] [address], [id number] , . tel: [phone] Referring Provider: Jah Garcai, [address] [place] [address], [facility]. tel:[phone] [facility], [address] [place] [address], [id number], tel: [phone] [facility] [place] Recurrent Erosion SyndromeKeratocon junctivitis SiccaMyopia Dec-2 1 2 Geffin Victor Manuel. [address] [place] [address], [id number] , . tel: [phone] Referring Provider: Jah Garcia, [address] [place] [address], [facility]. tel:[phone] [facility], [address] [place] [address], [id number], tel:[phone] [facility] Recurrent Erosion SyndromeKeratocon junctivitis SiccaMyopia Feb-0 2 Geffin Victor Manuel. [address] [place] [address], [id number] , . tel: [phone] Referring Provider: Jah Garcia, [address] [place] [address], [facility]. tel:[phone] [facility], [address] [place] [address], [id number], tel:[phone] [facility] Recurrent Erosion SyndromeKeratocon junctivitis SiccaMyopia Feb-0 3201 2 Geffin Victor Manuel. [address] [place] [address], [id number] , . tel: [phone] Referring Provider: Jah Garcia, [facility], [place], [address]. tel:[phone] Family History Family Member Type Diagnosis Age At Onset sister Problem (finding) HBP mom Problem (finding) cancer dad Problem (finding) breast ca, HD Payers Payer name Insurance type Covered democrat ID Authoriza tion(s) Medicare Primary MB [id number] [facility] [place] [id number] Social History Type Description Quantity Date Captured Comments Sex Male Smoking Status No Information Chief Complaint And Reason For Visit No Information Plan Of Treatment Date Type Action Status No Information History Of Present Illness Encounter Date Complaint History Of Prese nt Illness No Information Instructions Date Instruction Additional Infor mation No Information Assessments Type Assessment Date No Information
[2024-10-14 13:39] LABS: Reflex LDLD? No
== END 2024-10-14 11:38 | disposition home or self-care (01) ==
LOC: HO.LNP 11:37
PROVIDERS: Visit Provider Internal Medicine
DX: E78.00 Pure hypercholesterolemia, unspecified (principal)
CPT/HCPCS: 80061; 80076

== ENCOUNTER 2025-01-20 10:53 | Outpatient (AMB) | payer MEDICARE, OTHER, SELFPAY ==
--- NOTE | 2025-01-20 11:09 | HO.SPINEOV ---
Intake Visit Reasons: Low back pain. Intake Note: Mr. Pierson is here today c/o low back pain. MRI done @ [facility] (brought disc). Weigh Tank Operator Required: No Allergies Seasonal Allergies Allergy (Unknown, Verified 05/08/24 14:47) Unknown Coding
--- NOTE | 2025-01-20 11:12 | HO.SPINEOV ---
Intake Visit Reasons: Low back pain. Allergies Seasonal Allergies Allergy (Unknown, Verified 05/08/24 14:47) Unknown Assessment & Plan Assessment & Plan (1) Lumbar degenerative disc disease: Code(s): M51.369 - Other intervertebral disc degeneration, lumbar region without mention of lumbar back pain or lower extremity pain Category: Medical Plan Dear DR Hale, Mr Pierson came down to the office today for an evaluation of his lumbar spine. He is a very nice 79-year-old gentleman who has had back pain that localizes itself across the lower lumbar region for about 10 or 15 years. It has steadily gotten worse through the years. It is aggravated with standing and walking as well as bending activities. It does not seem to bother him at night. It does bother him when he is sitting for any length of time. He has no lower extremity symptoms, buttock pain or claudicating pains. He underwent physical therapy as well as cortisone injections. Unfortunately the injections only made him worse. He was being considered for facet denervation but because of the lack of response from the facet blocks, they would not do the procedure. He does take [id number]-[id number] medications like Tylenol as well as prescription diclofenac. He is here today see us with an MRI done at [facility] showing degenerative disc disease at L5-S1 amongst other degenerative changes. PMH: History of coronary bypass back in 2016, left bundle branch block as well as aortic stenosis which is mild. He is followed by . He did have a stroke in the left hemisphere at some point in the last few years that has left him with some occasional word-finding difficulties and memory issues. He has been stable with no active symptoms for many years. He had a hip replacement and tolerated that well. Other than that he is reasonably healthy, has a history of high cholesterol, GERD, hypertension, erectile dysfunction. Social hx: He does not smoke, drink or use any recreational drugs Medications: Baby aspirin, atorvastatin, esomeprazole, trazodone, valsartan, amlodipine, Singulair, Viagra, diclofenac, eyedrops Allergies: None Physical exam: Awake alert oriented no acute distress, he is able to stand up on his own walk down the hallway with no obvious pain. He does have tenderness over the lumbar region in the lower area. Strength and reflexes in the lower extremities is normal Imaging review: Lumbar MRI done [facility] shows degenerative disc disease primarily at L5-S1 where there severe endplate collapsed. He has facet arthropathy at L4-5 with bilateral hyperintensities. He has moderate to severe central canal stenosis at this level. I did flexion-extension x-rays in the office and I do not see any signs of instability. Impression: 79-year-old gentleman presents with chronic low back pain centered over the middle of his lower lumbar region. He has been through conservative treatment as outlined above. He failed the cortisone injections so he was not a candidate for facet rhizotomy at L4-5 where he has hyperintensities. His imaging shows a severely collapsed disc at L5-S1. I believe this could be part of what is causing his pain but I explained to him that back pain is very difficult to know exactly where it comes from. Typically Dr. Monk might offer L5-S1 anterior lumbar interbody fusion for this level of disc degeneration that he has and his failure of conservative treatment. However, I would like to review the imaging with him to see if he believes his bone quality is good enough. I explained to the patient that the success rate for the fusion is 60-70%. Once I have a chance to review everything with Dr. Monk I will get back to the patient. Thank you for allowing us to care for your patient. The total time spent with this visit with this patient was 45 minutes reviewing history, physical exam, lumbar imaging review, and implementation of treatment plan or further diagnostic testing Duran Monk MD,PhD [facility] Orders: Orders XR lumbar spine 4V min Today M51.369 - Other intervertebral disc degeneration, lumbar region without mention of lumbar back pain or lower extremity pain Coding Level of Care Code New Pt Level 4 (76134) Diagnoses Lumbar degenerative disc disease M51.369
--- OUTSIDE RECORDS SUMMARY | 2025-01-20 12:47 | XMS_ITS ---
Author Organization Luciano Mack MD Address [address] [place] [id number] Care Team Providers Care Glove Turner Name Role Phone Luciano Mack Primary Care Provider Allergies No Known Allergies REASON FOR VISIT 6 MO F/U Medications Medication SIG (Take, Route, Frequency, Duration) Notes Start Date End Date Status Amoxicillin 500 MG 4 tabs Orally before dental work Not-Taking Claritin-D 24 Hour 10-240 MG 1 tablet as needed Orally Once a day Not-Taking Clobetasol Propionate 0.05 % 1 application to affected area Externally Twice a day for 10 days 02/17/2015 Not-Taking Doxazosin Mesylate 1 MG 1 tablet Orally Once a day Unknown Valium 5 MG 1 tablet as needed Orally Once a day for 10 days 07/07/2017 Not-Taking amLODIPine Besylate 2.5 MG 1 tablet Orally Once a day Active traZODone HCl 150 MG TAKE 1 TABLET BY MO UTH AT BEDTIME WHEN NEEDED for 90 Active Diclofenac Potassium 50 MG TAKE 1 TABLET BY MOUTH TWICE A DAY NEEDED for 30 Active Valsartan 80 MG TAKE 1 TABLET BY DOMINGUEZ TH EVERY DAY Active acetaZOLAMIDE 125 MG 1 tablet Orally Twi ce a day for 14 days 08/21/2023 Not-Taking Atorvastatin Calcium 80 MG TAKE 1 TABLET BY MOUTH EVERY DAY Active Sildenafil Citrate 100 MG 1/2 tablet as needed Orally Once a day for 60 Active Tylenol Extra Strength 500 MG 1 or 2 tablets as needed Orally every 6 hrs Active Esomeprazole Magnesium 40 MG TAKE 1 CAPSULE BY MOUTH TWICE A DAY for 90 Active Montelukast Sodium 10 MG TAKE 1 TABLET B Y MOUTH EVERY DAY IN THE EVENING FOR 90 DAYS Orally QOD Active Aspirin 81 MG 1 tablet Orally Once a day Active Xiidra 5 % 1 drop into affected eye Ophthalmic Twice a day Active Systane Preservative Free 0.4-0.3 % Ophthalmic Active Problems Problem Type SNOMED Code ICD Code Onset Dates Problem Status W/U Status Risk Notes Problem [id number] Familial hypercholesterolemia (E78.01) Active confirmed Vital Signs Blood pressure systolic 142 mm Hg 10/21/19 25 Blood pressure diastolic 64 mm Hg 025 Height 61.50 in 10/21/2024 Weight 125 lbs 10/21/2024 BMI 23.23 kg/m2 10/21/2024 weight is down 4 pounds [facility] 07-29-24 Encounters Encounter Location Date Provider Diagnosis Luciano Mack MD [address] [place], [place] [id number] 10/21/2024 Luciano Mack Essential hypertensi on I10 ; Cerebrovascular accident (CVA) due to occlusion of anterior cerebral artery I63.529 and Familial hypercholesterolemia E78.01 Assessments Encounter Date Diagnosis (ICD Code) Assessment Notes Treatment Notes Treatment Clinical Notes Section Notes 10/21/2024 Essential hypertensi on (ICD-10 - I10) well controlled, will continue current regiment 10/21/2024 Cerebrovascular acci dent (CVA) due to occlusion of anterior cerebral artery (ICD-10 - I63.529) doing well, will continue to monitor 10/21/2024 Familial hypercholesterolemia (ICD-10 - E78.01) 10/21/2024 Other doing well, will continue current regiment Plan Of Treatment Medication Medication Name Sig Start Date Stop Date Notes amLODIPine Besylate 2.5 MG 1 tablet Orally Once a day Valsartan 80 MG TAKE 1 TABLET BY DOMINGUEZ TH EVERY DAY Atorvastatin Calcium 80 MG TAKE 1 TABLET BY MOUTH EVERY DAY Treatment Notes Assessment Notes Essential hypertension well controlled, will continue current regiment Cerebrovascular accident (CV A) due to occlusion of anterior cerebral artery doing well, will continue to monitor Other doing well, will con tinue current regiment Next Appt Details Provider Name:Luciano jorge, 04/08/2025 07:45:00 AM, [address] [place] [address], [address] [facility], [place], [place], [id number], Provider Name:Luciano jorge, 04/15/2025 01:30:00 PM, [address] [place] [address], [address], [place], [place], [phone], Progress Notes * PASTORA CORNEJODOB:1944 (79 yo M)Acc No.[id number]:10/21/2024 Progress Notes Patient:?PASTORA CORNEJO Provider:?Luciano Mack MD :1945???Age:79 Y???Sex:Male Sony e:10/21/2024 Address:[address] [place], [place] [id number] Subjective: * Chief Complaints: * ???6 MO F/U * HPI: ???Symptom(s):? patient is a 79 yo male here for 6 month followup/ doing well. * ROS:?General/Constitutional:?Denies?Chills.?Denies?Fatigue.?Denies?Fever.?Denies?Headache.?ENT:?Patient denies?decreased sense of smell , any loss of taste , sore throat.?Denies?Sore throat.?Respiratory:?Denies?Cough.?Denies?Shortness of breath at rest.?Denies?Shortness of breath with exertion.?Gastrointestinal:?Denies?Diarrhea.?Denies?Nausea.?Musculoskeletal:?Patient denies?muscle aches.?Peripheral Vascular:?Patient denies?red and blue toes.? * Medical History:? * Surgical History:? * Hospitalization/Major Diagno stic Procedure:? * Medications:?TakingAspirin 8 1 MG Tablet 1 tablet Orally Once a dayXiidra 5 % Solution 1 drop into affected eye Ophthalmic Twice a daySystane Preservative Free 0.4-0.3 % Solution Ophthalmic Sildenafil Citrate 100 MG Tablet 1/2 tablet as needed Orally Once a dayTylenol Extra Strength 500 MG Tablet 1 or 2 tablets as needed Orally every 6 hrsEsomeprazole Magnesium 40 MG Capsule Delayed Release TAKE 1 CAPSULE BY MOUTH TWICE A DAY Montelukast Sodium 10 MG Tablet TAKE 1 TABLET BY MOUTH EVERY DAY IN THE EVENING FOR 90 DAYS Orally QODtraZODone HCl 150 MG Tablet TAKE 1 TABLET BY MOUTH AT BEDTIME WHEN NEEDED amLODIPine Besylate 2.5 MG Tablet 1 tablet Orally Once a dayAtorvastatin Calcium 80 MG Tablet TAKE 1 TABLET BY MOUTH EVERY DAY Diclofenac Potassium 50 MG Tablet TAKE 1 TABLET BY MOUTH TWICE A DAY NEEDED Valsartan 80 MG Tablet TAKE 1 TABLET BY MOUTH EVERY DAY Taking Aspirin 81 MG Tablet 1 tablet Orally Once a dayTaking Xiidra 5 % Solution 1 drop into affected eye Ophthalmic Twice a dayTaking Systane Preservative Free 0.4-0.3 % Solution Ophthalmic Taking Sildenafil Citrate 100 MG Tablet 1/2 tablet as needed Orally Once a dayTaking Tylenol Extra Strength 500 MG Tablet 1 or 2 tablets as needed Orally every 6 hrsTaking Esomeprazole Magnesium 40 MG Capsule Delayed Release TAKE 1 CAPSULE BY MOUTH TWICE A DAY Taking Montelukast Sodium 10 MG Tablet TAKE 1 TABLET BY MOUTH EVERY DAY IN THE EVENING FOR 90 DAYS Orally QODTaking traZODone HCl 150 MG Tablet TAKE 1 TABLET BY MOUTH AT BEDTIME WHEN NEEDED Taking amLODIPine Besylate 2.5 MG Tablet 1 tablet Orally Once a dayTaking Atorvastatin Calcium 80 MG Tablet TAKE 1 TABLET BY MOUTH EVERY DAY Taking Diclofenac Potassium 50 MG Tablet TAKE 1 TABLET BY MOUTH TWICE A DAY NEEDED Taking Valsartan 80 MG Tablet TAKE 1 TABLET BY MOUTH EVERY DAY Not-Taking/PRNacetaZOLAMIDE 125 MG Tablet 1 tablet Orally Twice a dayValium 5 MG Tablet 1 tablet as needed Orally Once a dayAmoxicillin 500 MG Tablet 4 tabs Orally before dental workClaritin-D 24 Hour 10-240 MG Tablet Extended Release 24 Hour 1 tablet as needed Orally Once a dayClobetasol Propionate 0.05 % Cream 1 application to affected area Externally Twice a dayNot-Taking/PRN acetaZOLAMIDE 125 MG Tablet 1 tablet Orally Twice a dayNot-Taking/PRN Valium 5 MG Tablet 1 tablet as needed Orally Once a dayNot-Taking/PRN Amoxicillin 500 MG Tablet 4 tabs Orally before dental workNot-Taking/PRN Claritin-D 24 Hour 10-240 MG Tablet Extended Release 24 Hour 1 tablet as needed Orally Once a dayNot-Taking/PRN Clobetasol Propionate 0.05 % Cream 1 application to affected area Externally Twice a dayUnknownDoxazosin Mesylate 1 MG Tablet 1 tablet Orally Once a dayMedication List reviewed and reconciled with the patientUnknown Doxazosin Mesylate 1 MG Tablet 1 tablet Orally Once a dayMedication List reviewed and reconciled with the patient * Allergies:?N.K.D.A.yes[Aller gies Verified] Objective: * Vitals:?Ht: 61.50, Wt:125, B OR:23.23, BP:142/64, Repeat BP:120/70 weight is down 4 pounds since 07-29-24. * ???Past Orders: ???Lab:Liver Panel (Order Da te - 10/14/2024) (Collection Date - 10/14/2024) ? Value Reference Range ?Bilirubin Total 0.5 0.0- 1.0 - mg/dL ?Bilirubin Direct 0.2 0.0 -0.5 - mg/dL ?Aspartate Amino Transferase 35 5-37 - U/L ?Alanine Aminotransferase 22 0-40 - U/L ?Total Protein 6.7 6.5-8. 0 - g/dL ?Albumin Level 4.2 3.5-5. 0 - g/dL ?Alkaline Phosphatase 76 39-117 - U/L ???Lab:Lipid Panel with Refl ex (Order Date - 10/14/2024) (Collection Date - 10/14/2024) ? Value Reference Range ?Triglycerides 253 H <150 - mg/dL ?Cholesterol 138 <200 - m g/dL ?LDL Cholesterol Calculated 53 <100 - mg/dL ?HDL Cholesterol 35 L >40 - mg/dL * Examination: ???General Examination: ?GENERAL APPEARANCE:?well developed, well nourished.?HEAD:?normocephalic.?SKIN:?good turgor.?HEART:?regular rate and rhythm , no murmurs, rubs, gallops.?LUNGS:?no wheezes, rales, rhonchi , good air movement , clear to auscultation bilaterally.? Assessment: * Assessment: 1.?Essential hypertension - I10?2.?Cerebrovascular accident (CVA) due to occlusion of anterior cerebral artery - I63.529?3.?Familial hypercholesterolemia - E78.01? Plan: * Treatment: 2.?Cerebrovascular accident (CVA) due to occlusion of anterior cerebral artery? Notes: doing well, will continue to monitor?? 3.?Others? Continue Atorvastatin Calcium Tablet, 80 MG, TAKE 1 TABLET BY MOUTH EVERY DAY;?Continue amLODIPine Besylate Tablet, 2.5 MG, 1 tablet, Orally, Once a day;?Continue Valsartan Tablet, 80 MG, TAKE 1 TABLET BY MOUTH EVERY DAY.?? Notes: doing well, will continue current regiment?? * Procedure Codes:? * * Sign off status: Completed true * Provider:?Luciano Mack MD Date:?0 10/21/2024 Generated for Sera horner/Jessie/Olgaitting on:?01/20/2025 12:47 PM EDT History and Physical Notes * HPI (History of Present Illness) Category Sub-Category Detail Notes Category Not es Symptom(s) patient is a 79 yo male here for 6 month followup/ doing well Examination Category Sub-Category Detail Notes Category Not es General Examination GENERAL APPEARANCE: well developed , well nourished HEAD: normocephalic HEART: regular rate and rhy thm , no murmurs, rubs, gallops LUNGS: no wheezes, rales, r honchi , good air movement , clear to auscultation bilaterally SKIN: good turgor
--- OUTSIDE RECORDS SUMMARY | 2025-01-20 12:47 | XMS_ITS | Patient Health Record ---
Author Organization Luciano Mack MD Address [address] [place] [phone] Care Team Providers Care Bilingual Student Tutor Name Role Phone Luciano Mack Primary Care Provider Allergies No Known Allergies Results Component Value Reference Range Notes Complete Blood Count Auto Di ff Reviewed date:04/02/2024 04:58:19 PM Interpretation: Performing Lab:[facility], [address] [place] [phone] Notes/Report: White Blood Count 5.5 4.8-10.8 X10*3/uL Red Blood Count 4.31 4.60-5.80 X10*6/uL Hemoglobin 13.3 14.0-18.0 g/dl Hematocrit 40.8 42.0-52.0 % Mean Corpuscular Volume 94.7 80.0-98.0 fL Mean Corpuscular Hemoglobin 30.9 27.0-33.0 pg Mean Corpuscular HGB Conc 32.6 31.0-36.0 g/dl Red Cell Distribution Width 12.6 11.0-16.0 % Platelet Count 292 160-400 X10*3/uL Mean Platelet Volume 9.8 9.4-12.4 fL Neutrophils Percent Auto 57.2 45-73 % Imm Gran Pct Auto 0.5 0.0-0.4 % Lymphocytes Percent Auto 33.0 20-40 % Monocytes Percent Auto 6.9 2-11 % Eosinophils Percent Auto 2.0 0-4 % Basophils Percent Auto 0.4 0-2 % NRBC Pct Auto 0.0 0.0-0.2 /100WBC Neutrophils Absolute Auto 3.2 2.0-8.3 x10*3/u L Imm Gran Abs Auto 0.03 0.00-0.03 X10*3/uL Lymphocytes Absolute Auto 1.8 1.2-4.9 X10*3/u L Monocytes Absolute Auto 0.4 0.1-1.2 X10*3/uL Eosinophils Absolute Auto 0.1 0.0-0.4 X10*3/u L Basophils Absolute Auto 0.0 0.0-0.2 X10*3/uL NRBC Abs Auto 0.000 0.0-0.012 X10*3/uL Comprehensive Dougherty. Panel Fa st Reviewed date:04/02/2024 12:48:36 PM Interpretation: Performing Lab:[facility], [address] [place] [phone] Notes/Report: Sodium 139 135-145 mmol/L Potassium 4.1 3.3-5.1 mmol/L Chloride 103 96-108 mmol/L Carbon Dioxide 27 22-29 mmol/L Anion Gap 13 12-20 Blood Urea Nitrogen 27 9-16 mg/dL Creatinine 1.04 0.5-1.4 mg/dL Estimated Glomerular Filt Rate > 60 NOTE: For -Stateless individuals, multiply the result by 1.210. Chronic Kidney Disease: Estimated GFR < 60 mL/min/1.73m2 Severe Kidney Disease: Estimated GFR < 15 mL/min/1.73m2 Glucose Fasting 90 60-99 mg/dL Calcium 9.8 8.4-10.2 mg/dL Bilirubin Total 0.9 0.0-1.0 mg/dL Aspartate Amino Transferase 25 5-37 U/L Alanine Aminotransferase 19 0-40 U/L Total Protein 7.0 6.5-8.0 g/dL Albumin Level 4.5 3.5-5.0 g/dL Alkaline Phosphatase 78 39-117 U/L Lipid Panel with Reflex Reviewed date:04/01/2024 05:19:22 PM Interpretation: Performing Lab:[facility], [address] [place] [phone] Notes/Report: Triglycerides 150 <150 mg/dL Desirable Triglyceride: less than 150 mg/dL Borderline High Triglyceride 150-199 mg/dL High Triglyceride: 200-499 mg/dL Very High Triglyceride: greater than or equal to 5OO mg/dL Cholesterol 143 <200 mg/dL Desirable Cholesterol: less than 200 mg/dL Borderline High Cholesterol: 200-239 mg/dL High Cholesterol: greater than 239 mg/dL LDL Cholesterol Calculated 76 <100 mg/dL Desirable LDL: less than 100 mg/dL Near Optimal/Above Optimal LDL: 110-129 mg/dL Borderline High LDL: 130-159 mg/dL High LDL: 160-189 mg/dL Very High LDL: greater than or equal to 190 mg/dL HDL Cholesterol 37 >40 mg/dL Desirable HDL: greater than 40 mg/dL Note: This HDL assay may give artificially low results in patients with liver disease. PSA,Total (Free>4and<10) Reviewed date:04/01/2024 05:18:52 PM Interpretation: Performing Lab:[facility], [address] [place] [phone] Notes/Report: PSA,Total (Free>4and<10) 0.55 0.00-4.00 ng/mL A Free PSA was not performed: The percentage of Free PSA can be used to enhance the differentiation of prostate cancer from benign prostatic disease in subjects whose PSA levels are between 4.0 and 10.0 ng/mL. For subjects whose PSA levels are below 4.0 or above 10.0 ng/mL, the risk of prostate cancer is determined on the basis of the PSA alone. Therefore the % Free PSA is recommended only for those subjects whose PSA levels are between 4.0 and 10.0 ng/mL. PSA methodology: Lynn Alinity i Chemiluminescent Microparticle Immunoassay (CMIA) Testosterone, Free/Total Reviewed date:04/09/2024 12:39:25 PM Interpretation: Performing Lab:[facility], [address] [place] [phone] Notes/Report: Testosterone, Total 347 940-1808 ng/dL Men with clinically significant hypogonadal symptoms and testosterone values repeatedly in the range of the 200-300 ng/dL or less, may benefit from testosterone treatment after adequate risk and benefits counseling. For additional information, please refer to http://education.[employer]/faq/ TotalTestosteroneLCMSMSFAQ 165 (This link is being provided for informational/ educational purposes only.) This test was developed and its analytical performance characteristics have been determined by [employer] [place], [place]. It has not been cleared or approved by the U.S. Food and Drug Administration. This assay has been validated pursuant to the CLIA regulations and is used for clinical purposes. Testosterone, Free 42.4 30.0-135.0 pg/mL This test was developed and its analytical performance characteristics have been determined by [employer] [place], [place]. It has not been cleared or approved by the U.S. Food and Drug Administration. This assay has been validated pursuant to the CLIA regulations and is used for clinical purposes. THIS TEST WAS PERFORMED AT: [facility] [address] MEME WEINER MD,PHD [employer] w/rflx Cul t Reviewed date:04/01/2024 05:30:59 PM Interpretation: Performing Lab:[facility], [address] [place] [phone] Notes/Report: Urine, Clean Catch Color Urine Yellow Appearance Urine Clear PH 6.0 5.0-9.0 Glucose Urine UA Negative Negative mg/dL Urine Blood Negative Negative Specific [place] - Urine 1.025 1.005-1.025 Urine Protein Negative Neg-Trace mg/dL Urine Ketones Negative Negative mg/dL Nitrite Urine Negative Negative Leukocyte Esterase Urine Negative Negative RBC Urine 0-2 0-2 /HPF WBC Urine 0-5 0-5 /HPF Squamous Epithelial Cell Urine 0-2 0-2 /HPF Bacteria Urine None Seen None Seen Hyaline Casts Urine 0-2 0-2 /LPF Liver Panel Reviewed date:10/14/2024 05:44:03 PM Interpretation: Performing Lab:[facility], [address] [place] [phone] Notes/Report: Bilirubin Total 0.5 0.0-1.0 mg/dL Bilirubin Direct 0.2 0.0-0.5 mg/dL Aspartate Amino Transferase 35 5-37 U/L Alanine Aminotransferase 22 0-40 U/L Total Protein 6.7 6.5-8.0 g/dL Albumin Level 4.2 3.5-5.0 g/dL Alkaline Phosphatase 76 39-117 U/L Lipid Panel with Reflex Reviewed date:10/14/2024 05:43:47 PM Interpretation: Performing Lab:[facility], [address] [place] [phone] Notes/Report: Triglycerides 253 <150 mg/dL Desirable Triglyceride: less than 150 mg/dL Borderline High Triglyceride 150-199 mg/dL High Triglyceride: 200-499 mg/dL Very High Triglyceride: greater than or equal to 5OO mg/dL Cholesterol 138 <200 mg/dL Desirable Cholesterol: less than 200 mg/dL Borderline High Cholesterol: 200-239 mg/dL High Cholesterol: greater than 239 mg/dL LDL Cholesterol Calculated 53 <100 mg/dL Desirable LDL: less than 100 mg/dL Near Optimal/Above Optimal LDL: 110-129 mg/dL Borderline High LDL: 130-159 mg/dL High LDL: 160-189 mg/dL Very High LDL: greater than or equal to 190 mg/dL HDL Cholesterol 35 >40 mg/dL Desirable HDL: greater than 40 mg/dL Note: This HDL assay may give artificially low results in patients with liver disease. Occult Blood, Stool, Guaiac Reviewed date:04/08/2024 02:31:41 PM Interpretation:Positive Performing Lab: Notes/Report: Positive Occult Blood, Stool, Guaiac Pos Hold Gold Reviewed date:10/14/2024 12:24:04 PM Interpretation: Performing Lab:[facility], [address] [place] [phone] Notes/Report: Hold Gold See Note Specimen held untested for 24 hours; Call to request Chemistry testing. Reason For Referral Reason GUAIAC POSITIVE STOO LS Diagnosis 1 Guaiac positive stoo ls (R19.5) Referral Organization Luciano Mack MD Referring Provider First Name Luciano Referring Provider Last Name Frederick Referring Provider Speciality Internal M edicine Referred Provider Jameel Becerra Referred Provider Specialty Gastroentero logy General Notes America Diaz 05/03/2024 09:34:37 AM EDT > OFFICE NOTES RECEIVED Referral Priority Routine Referral Appointment Date 04/26/2024 Medications Medication SIG (Take, Route, Frequency, Duration) Notes Start Date End Date Status Montelukast Sodium 10 MG TAKE 1 TABLET B Y MOUTH EVERY DAY IN THE EVENING FOR 90 DAYS Orally QOD Active Sildenafil Citrate 100 MG 1/2 tablet as needed Orally Once a day for 60 Active Doxazosin Mesylate 1 MG 1 tablet Orally Once a day Not-Taking Tylenol Extra Strength 500 MG 1 or 2 tablets as needed Orally every 6 hrs Active Xiidra 5 % 1 drop into affected eye Ophthalmic Twice a day Active acetaZOLAMIDE 125 MG 1 tablet Orally Twi ce a day for 14 days 08/21/2023 Not-Taking Systane Preservative Free 0.4-0.3 % Ophthalmic Active Claritin-D 24 Hour 10-240 MG 1 tablet as needed Orally Once a day Not-Taking Valsartan 80 MG TAKE 1 TABLET BY DOMINGUEZ TH EVERY DAY Active Aspirin 81 MG 1 tablet Orally Once a day Active Esomeprazole Magnesium 40 MG TAKE 1 CAPSULE BY MOUTH TWICE A DAY NOT COVERED FOR TWICE A DAY DOSING for 90 Active Atorvastatin Calcium 80 MG TAKE 1 TABLET BY MOUTH EVERY DAY Active amLODIPine Besylate 2.5 MG 1 tablet Oral ly Once a day Active traZODone HCl 150 MG TAKE 1 TABLET BY MO UTH AT BEDTIME WHEN NEEDED for 90 Active Diclofenac Potassium 50 MG TAKE 1 TABLET BY MOUTH TWICE A DAY NEEDED for 30 Active Immunizations Vaccine Route Administration Date Status Comme nts Flu Vaccine Unknown 08/19/2014 Administered DONE AT [facility] PPSV23 (Pnemovax) IM Intramuscular 03/23/2015 Administered Fluarix Quadrivalent IM Intramuscular 06/29/2015 Administe red Fluarix Quadrivalent Unknown 07/19/2016 Administered Prevnar 13 IM Intramuscular 09/29/2016 Administered Fluarix Quadrivalent IM Intramuscular 07/07/2017 Administe red TDaP IM Intramuscular 10/15/2017 Administered pt was given the vaccine at [facility] in [place] Shingrix IM Intramuscular 03/27/2018 Administered Fluarix Quadrivalent IM Intramuscular 06/28/2018 Administe red Shingrix IM Intramuscular 07/10/2018 Administered Fluarix Quadrivalent IM Intramuscular 07/01/2019 Administe red PPSV23 (Pnemovax) IM Intramuscular 05/26/2020 Administered Fluarix Quadrivalent Unknown 07/17/2020 Administered [facility] Covid Vaccine Unknown 11/09/2020 Administered alesha a ve through [facility] Influenza High Dose IM Intramuscular 07/06/2021 Administer ed SARS-COV-2 Pfizer Unknown 11/30/2020 Administered SARS-COV-2 Pfizer Unknown 07/27/2021 Administered [facility] Influenza High Dose IM Intramuscular 06/14/2022 Administer ed SARS-COV-2 Moderna Unknown 07/06/2022 Administered [facility] Influenza High Dose IM Intramuscular 07/18/2023 Administer ed Influenza High Dose IM Intramuscular 06/18/2024 Administer ed SARS-COV-2 Pfizer Unknown 06/17/2024 Administered [facility] Social History Tobacco Use: Social History Observation Description Date Details (start date - stop date) Never Smoker NA - NA Tobacco Use/Smoking Question Answer Notes Patient is a nonsmoker Additional Findings: Tobacco Non-User Cu rrent non-smoker, currently using no form of tobacco Alcohol Screen Question Answer Notes Did you have a drink contain ing alcohol in the past year? Yes How often did you have a dri nk containing alcohol in the past year? Monthly or less (1 point) How many drinks did you have on a typical day when you were drinking in the past year? 1 or 2 drinks (0 point) How often did you have 6 or more drinks on one occasion in the past year? 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 Problem Pure hypercholesterolemia (190097187) Pure hypercholesterolemia (E78.0) Active confirmed Problem 71188421 Prostatism (N40.0) Active confirmed Problem 57814928 Guaiac positive stools (R19.5) Active confirmed Problem 964614598 Reflux esophagit is (K21.00) Active confirmed Problem 2274999622272 Testosterone deficiency (E29.1) Active confirmed Problem 7778334 Primary insomnia (F51.01) Active confirmed Problem 745381384 Essential tremor (G25.0) Active confirmed Problem 63059176 Other allergic rhinitis (J30.89) Active confirmed Problem 515486061551713 Erectile dysfunc tion due to arterial insufficiency (N52.01) Active confirmed Problem 18402158 Other chest pain (R07.89) Active confirmed Problem 826108773 Angina effort (I20.8) Active confirme d Problem 435017797 Gastroesophageal reflux disease without esophagitis (K21.9) Active confirmed Problem 84776575 Essential hypertension (I10) Active confirmed Problem 24419036 Obstructive slee p apnea syndrome (G47.33) Active confirmed Problem 224332130 Cerebrovascular accident (CVA) due to occlusion of anterior cerebral artery (I63.529) Active confirmed Problem 72240955 LBBB (left bundl e branch block) (I44.7) Active confirmed Problem Leukocytosis (068285094) Elevated WBC count (D72.829) Active confirmed Problem 206973478 Familial hypercholesterolemia (E78.01) Active confirmed Problem 557730285 Pure hypercholesterolemia (E78.00) Active confirmed Problem 57575977 Hypercholesterem ia (E78.00) Active confirmed Problem 02283148 Hip arthritis (M16.10) Active confirmed Problem 832255837 Elevated serum cholesterol (E78.9) Active confirmed Vital Signs Blood pressure diastolic 68 mm Hg 01/06/2025 elier ght is up 3 pounds since 10-21-24 Height 61.50 in 01/06/2025 weight is up 3 pounds since 10-21-24 Blood pressure systolic 140 mm Hg 01/06/2025 weig ht is up 3 pounds since 10-21-24 Weight 128 lbs 01/06/2025 weight is up 3 pounds since 10-21-24 BMI 23.79 kg/m2 01/06/2025 weight is up 3 pounds since 10-21-24 Procedures Procedure Date Ordered Date Performed Result Body Sit e Colonoscopy, Screening 05/10/2024 05/10/2024 normal Encounters Encounter Location Date Provider Diagnosis Luciano Mack MD [address] [place] [id number] 04/01/2024 Luciano Mack Essential hypertensi on I10 ; Testosterone deficiency E29.1 ; Pure hypercholesterolemia E78.00 ; Prostatism N40.0 and Elevated serum cholesterol E78.9 Luciano Mack MD [address] [place] [address] [id number] 06/18/2024 Luciano Mack Encounter for immuni zation Z23 Luciano Mack MD [address] [place] [address] [id number] 10/14/2024 Luciano Mack Hypercholesteremia E 78.00 Luciano Mack MD [address] [place] [id number] 04/08/2024 Luciano Mack Guaiac positive stoo ls R19.5 ; Cerebrovascular accident (CVA) due to occlusion of anterior cerebral artery I63.529 ; Essential hypertension I10 ; Gastroesophageal reflux disease without esophagitis K21.9 ; Elevated serum cholesterol E78.9 ; Prostatism N40.0 ; Colon cancer screening Z12.11 and Encounter for screening for depression Z13.31 Luciano Mack MD [address] [place] [id number] 07/29/2024 Lucinao Mack Guaiac positive stoo ls R19.5 ; Pure hypercholesterolemia E78.0 and Hypercholesteremia E78.00 Luciano Mack MD [address] [place] [id number] 10/21/2024 Luciano Mack Essential hypertensi on I10 ; Cerebrovascular accident (CVA) due to occlusion of anterior cerebral artery I63.529 and Familial hypercholesterolemia E78.01 Luciano Mack MD [address] [place] [address] [id number] 01/06/2025 Luciano Mack Back pain M54.9 Luciano Mack MD [address] [place] [id number] 04/15/2024 Luciano Mack Assessments Encounter Date Diagnosis (ICD Code) Assessment Notes Treatment Notes Treatment Clinical Notes Section Notes 04/01/2024 Essential hypertensi on (ICD-10 - I10) 04/01/2024 Testosterone deficie ncy (ICD-10 - E29.1) 06/18/2024 Encounter for immunization (ICD-10 - Z23) 10/14/2024 Hypercholesteremia (ICD-10 - E78.00) 04/08/2024 Guaiac positive stoo ls (ICD-10 - R19.5) referral back to dr becerra/ REFERRAL MADE TO DR BECERRA @ [facility] , WILL FAX WHEN NOTE LOCKED 04/08/2024 Cerebrovascular accident (CVA) due to occlusion of anterior cerebral artery (ICD-10 - I63.529) stable with no recurrence 07/29/2024 Guaiac positive stoo ls (ICD-10 - R19.5) had negative upper and lower endoscopy, followed by GI 07/29/2024 Pure hypercholesterolemia (ICD-10 - E78.0) will continue to monitor, pending labs 10/21/2024 Essential hypertensi on (ICD-10 - I10) well controlled, will continue current regiment 01/06/2025 Back pain (ICD-10 - M54.9) pending diagnostic testing/ order faxed to [facility] has tried physical therapy, had injections and nerve block which was unsuccessful 04/01/2024 Pure hypercholesterolemia (ICD-10 - E78.00) 04/08/2024 Essential hypertensi on (ICD-10 - I10) stable, will cntinue current regiment 07/29/2024 Hypercholesteremia (ICD-10 - E78.00) 10/21/2024 Cerebrovascular accident (CVA) due to occlusion of anterior cerebral artery (ICD-10 - I63.529) doing well, will continue to monitor 04/01/2024 Prostatism (ICD-10 - N40.0) 04/08/2024 Gastroesophageal ref lux disease without esophagitis (ICD-10 - K21.9) 10/21/2024 Familial hypercholesterolemia (ICD-10 - E78.01) 04/01/2024 Elevated serum cholesterol (ICD-10 - E78.9) 04/08/2024 Elevated serum cholesterol (ICD-10 - E78.9) stable, will continue to monitor 04/08/2024 Prostatism (ICD-10 - N40.0) 04/08/2024 Colon cancer screeni ng (ICD-10 - Z12.11) 04/08/2024 Encounter for screen ing for depression (ICD-10 - Z13.31) 10/21/2024 Other doing well, will continue current regiment Plan Of Treatment Pending Test Test Name Order Date Electrocardiogram (EKG) 09/29/2016 MRI LUMBAR SPINE NO CONTRAST 01/06/2025 US ABD AORTA 11/12/2020 XR knee LT 3V 08/15/2022 Next Appt Details Provider Name:Luciano Gonzalez ier, 04/08/2025 07:45:00 AM, [address] [place] [address], [address], [place], [place], [phone], Provider Name:Luciano Gonzalez ier, 04/15/2025 01:30:00 PM, [address] [place] [address], [address], [place], [place], [phone], Insurance Providers Payer Name Payer Address Payer Phone Subscriber Number Group Number Insured Name Patient Relationship to Insured Coverage Start Date Coverage End Date MEDICARE NHIC [address] [place] [address] [id number] PASTORA CORNEJO Self - patient is the insured [facility] O [address] [phone] [id number] PASTORA CORNEJO Self - patient is the insured Medical (General) History Medical History History ICD Code colonoscopy - 09/23/15 w/Dr. Becerra (repeat 10 yrs)05/10/24 colonscopy normal, no further testing Upper Endoscopy booked for 03/31/17 w/Dr. Becerra Total right hip replaced 10/21/[address] Smart Hematuria R31.9 Hematuria Dysthymia F34.1 Dysthymia Surgical History Surgery Date(Month/Year) RT Myringtomy and Tube - Dr. Abbott 2018
--- OUTSIDE RECORDS SUMMARY | 2025-01-20 12:47 | XMS_ITS | Clinical Summary ---
Author Organization [facility] Address [address] [place] [address] Care Team Providers Care Portrait Studio Photographer Name Role Phone Unavailable Primary Care Provider Unavailabl e Social History Tobacco Use Types Packs/Day Years Used Date Smoking Tobacco: Never Assessed Sex and Gender Information Value Date Recorded Sex Assigned at Not on file Gender Identity Not on file Sexual Orientation Not on file Plan of Treatment Not on file
--- OUTSIDE RECORDS SUMMARY | 2025-01-20 12:48 | XMS_ITS | Clinical Summary ---
Author Organization [facility] Address [address] [place] [address] Care Team Providers Care Social Work Job Titles Name Role Phone Unavailable Primary Care Provider Unavailabl e Social History Tobacco Use Types Packs/Day Years Used Date Smoking Tobacco: Never Assessed Sex and Gender Information Value Date Recorded Sex Assigned at Not on file Gender Identity Not on file Sexual Orientation Not on file Plan of Treatment Health Maintenance Due Date Last Done Comments DTaP/Tdap/Td Vaccines (1 - Tdap) 1962 Pneumococcal Vaccines 50+ (1 of 1 - PCV) 1993 Zoster (Shingles) Vaccine (1 of 2) 1993 RSV Vaccine 60 years and old er and Patients (1 - 1-dose 75+ series) 2018 COVID-19 Vaccine (2023-2 5 season) 2024 Hepatitis B Vaccines Aged Out No long er eligible based on patient's age to complete this topic
--- OUTSIDE RECORDS SUMMARY | 2025-01-20 12:48 | XMS_ITS ---
Author Organization Luciano Mack MD Address [address] [place] [id number] Care Team Providers Care Insurance Verifier Name Role Phone Luciano Mack Primary Care Provider Results Component Value Reference Range Notes Liver Panel Reviewed date:10/14/2024 05:44:03 PM Interpretation: Performing Lab:[facility], [address] [place] [phone] Notes/Report: Bilirubin Total 0.5 0.0-1.0 mg/dL Bilirubin Direct 0.2 0.0-0.5 mg/dL Aspartate Amino Transferase 35 5-37 U/L Alanine Aminotransferase 22 0-40 U/L Total Protein 6.7 6.5-8.0 g/dL Albumin Level 4.2 3.5-5.0 g/dL Alkaline Phosphatase 76 39-117 U/L Lipid Panel with Reflex Reviewed date:10/14/2024 05:43:47 PM Interpretation: Performing Lab:[facility], [address] [place] [phone] Notes/Report: Triglycerides 253 <150 mg/dL Desirable Triglyceride: [...] low results in patients with liver disease. REASON FOR VISIT FASTING LIPIDS Encounters Encounter Location Date Provider Diagnosis Luciano Mack MD [address] [place] [address] [place] [id number] 10/14/2024 Luciano Mack Hypercholesteremia E 78.00 Assessments Encounter Date Diagnosis (ICD Code) Assessment Notes Treatment Notes Treatment Clinical Notes Section Notes 10/14/2024 Hypercholesteremia (ICD-10 - E78.00) Plan Of Treatment Next Appt Details Provider Name:Luciano jorge, 04/08/2025 07:45:00 AM, [address] [place] [address], Suite [facility], [place], [place], [phone], Provider Name:Luciano jorge, 04/15/2025 01:30:00 PM, [address] [place] [address], [address] [place] [address], [phone], Progress Notes * PASTORA CORNEJOB:1944 (79 yo M)Acc No.[id number]:10/14/2024 Progress Note Patient:?PASTORA CORNEJO Provider:?Luciano Mack MD :1945???Age:79 Y???Sex:Male Sony e:10/14/2024 Address:[address] [place], [place] [phone] Subjective: * Chief Complaints: * ???1. FASTING LIPIDS. * Medical History:? Objective: * Vitals:? Assessment: * Assessment: 1.?Hypercholesteremia - E78. 00 (Primary)??? Plan: * Treatment: * Procedure Codes:?54808 VENIP UNCT, ROUTINE* * * The named appointment provid er may or may not be the originator of this progress note, and it is not deemed complete until electronically signed by the appointment provider. Sign off status: Pending * Provider:?Luciano Mack MD Date:?0 10/14/2024 Generated for Sera horner/Jessie/Arelismitting on:?01/20/2025 12:47 PM EDT
--- OUTSIDE RECORDS SUMMARY | 2025-01-20 12:48 | XMS_ITS ---
Author Organization Luciano Mack MD Address [address] [place] [phone] Care Team Providers Care Geophysical Manager Name Role Phone Luciano Mack Primary Care Provider Allergies No Known Allergies REASON FOR VISIT Back pain wants MRI Medications Medication SIG (Take, Route, Frequency, Duration) Notes Start Date End Date Status traZODone HCl 150 MG TAKE 1 TABLET BY MO UTH AT BEDTIME WHEN NEEDED for 90 Active Diclofenac Potassium 50 MG TAKE 1 TABLET BY MOUTH TWICE A DAY NEEDED for 30 Active Montelukast Sodium 10 MG TAKE 1 TABLET B Y MOUTH EVERY DAY IN THE EVENING FOR 90 DAYS Orally QOD Active Atorvastatin Calcium 80 MG TAKE 1 TABLET BY MOUTH EVERY DAY Active amLODIPine Besylate 2.5 MG 1 tablet Oral ly Once a day Active Sildenafil Citrate 100 MG 1/2 tablet as needed Orally Once a day for 60 Active Tylenol Extra Strength 500 MG 1 or 2 tablets as needed Orally every 6 hrs Active Xiidra 5 % 1 drop into affected eye Ophthalmic Twice a day Active Systane Preservative Free 0.4-0.3 % Ophthalmic Active Aspirin 81 MG 1 tablet Orally Once a day Active Doxazosin Mesylate 1 MG 1 tablet Orally Once a day Not-Taking acetaZOLAMIDE 125 MG 1 tablet Orally Twi ce a day for 14 days 08/21/2023 Not-Taking Claritin-D 24 Hour 10-240 MG 1 tablet as needed Orally Once a day Not-Taking Valsartan 80 MG TAKE 1 TABLET BY DOMINGUEZ TH EVERY DAY Active Esomeprazole Magnesium 40 MG TAKE 1 CAPSULE BY MOUTH TWICE A DAY NOT COVERED FOR TWICE A DAY DOSING for 90 Active Vital Signs Blood pressure systolic 140 mm Hg 01/07/20 25 Blood pressure diastolic 68 mm Hg 025 Height 61.50 in 01/06/2025 Weight 128 lbs 01/06/2025 BMI 23.79 kg/m2 01/06/2025 weight is up 3 pounds since 10-21-24 Encounters Encounter Location Date Provider Diagnosis Luciano Mack MD [address] [place] [address] [address] [place], [place] [phone] 01/06/2025 Luciano Mack Back pain M54.9 Assessments Encounter Date Diagnosis (ICD Code) Assessment Notes Treatment Notes Treatment Clinical Notes Section Notes 01/06/2025 Back pain (ICD-10 - M54.9) pending diagnostic testing/ order faxed to [facility] has tried physical therapy, had injections and nerve block which was unsuccessful Plan Of Treatment Treatment Notes Assessment Notes Back pain pending diagnostic t esting/ order faxed to [facility] Pending Test Test Name Order Date MRI LUMBAR SPINE NO CONTRAST 01/06/2025 Next Appt Details Provider Name:Luciano jorge, 04/08/2025 07:45:00 AM, [address] [place] [address], [address], [place], [place], [phone], Provider Name:Luciano jorge, 04/15/2025 01:30:00 PM, [address] [place] [address], [address], [place], [place], [phone], Progress Notes * PASTORA CORNEJODOB:1944 (79 yo M)Acc No.[id number]:01/06/2025 Progress Notes Patient:?PASTORA CORNEJO Provider:?Luciano Mack MD :1945???Age:79 Y???Sex:Male Sony e:01/06/2025 Address:[address] [place] [address] [id number] Subjective: * Chief Complaints: * ???Back pain wants MRI * HPI: ???Symptom(s):?patient is a 79 yo male here as emergency. called neurosurgery and they said that i need mri. * ROS:?General/Constitutional:?Denies?Chills.?Denies?Fatigue.?Denies?Fever.?Denies?Headache.?ENT:?Patient denies?decreased sense of smell, any loss of taste, sore throat.?Denies?Sore throat.?Respiratory:?Denies?Cough.?Denies?Shortness of breath at rest.?Denies?Shortness of breath with exertion.?Gastrointestinal:?Denies?Diarrhea.?Denies?Nausea.?Musculoskeletal:?Patient denies?muscle aches.?Peripheral Vascular:?Patient denies?red and blue toes.? * Medical History:? * Surgical History:? * Hospitalization/Major Diagno stic Procedure:? * Medications:?TakingAspirin 8 1 MG Tablet 1 tablet Orally Once a day Xiidra 5 % Solution 1 drop into affected eye Ophthalmic Twice a day Systane Preservative Free 0.4-0.3 % Solution Ophthalmic Sildenafil Citrate 100 MG Tablet 1/2 tablet as needed Orally Once a day Tylenol Extra Strength 500 MG Tablet 1 or 2 tablets as needed Orally every 6 hrs Montelukast Sodium 10 MG Tablet TAKE 1 TABLET BY MOUTH EVERY DAY IN THE EVENING FOR 90 DAYS Orally QOD traZODone HCl 150 MG Tablet TAKE 1 TABLET BY MOUTH AT BEDTIME WHEN NEEDED Diclofenac Potassium 50 MG Tablet TAKE 1 TABLET BY MOUTH TWICE A DAY NEEDED Atorvastatin Calcium 80 MG Tablet TAKE 1 TABLET BY MOUTH EVERY DAY amLODIPine Besylate 2.5 MG Tablet 1 tablet Orally Once a day Valsartan 80 MG Tablet TAKE 1 TABLET BY MOUTH EVERY DAY Esomeprazole Magnesium 40 MG Capsule Delayed Release TAKE 1 CAPSULE BY MOUTH TWICE A DAY NOT COVERED FOR TWICE A DAY DOSING Taking Aspirin 81 MG Tablet 1 tablet Orally Once a day Taking Xiidra 5 % Solution 1 drop into affected eye Ophthalmic Twice a day Taking Systane Preservative Free 0.4- 0.3 % Solution Ophthalmic Taking Sildenafil Citrate 100 MG Tablet 1/2 tablet as needed Orally Once a day Taking Tylenol Extra Strength 500 MG Tablet 1 or 2 tablets as needed Orally every 6 hrs Taking Montelukast Sodium 10 MG Tablet TAKE 1 TABLET BY MOUTH EVERY DAY IN THE EVENING FOR 90 DAYS Orally QOD Taking traZODone HCl 150 MG Tablet TAKE 1 TABLET BY MOUTH AT BEDTIME WHEN NEEDED Taking Diclofenac Potassium 50 MG Tablet TAKE 1 TABLET BY MOUTH TWICE A DAY NEEDED Taking Atorvastatin Calcium 80 MG Tablet TAKE 1 TABLET BY MOUTH EVERY DAY Taking amLODIPine Besylate 2.5 MG Tablet 1 tablet Orally Once a day Taking Valsartan 80 MG Tablet TAKE 1 TABLET BY MOUTH EVERY DAY Taking Esomeprazole Magnesium 40 MG Capsule Delayed Release TAKE 1 CAPSULE BY MOUTH TWICE A DAY NOT COVERED FOR TWICE A DAY DOSING Not-Taking/PRNacetaZOLAMIDE 125 MG Tablet 1 tablet Orally Twice a day Claritin-D 24 Hour 10-240 MG Tablet Extended Release 24 Hour 1 tablet as needed Orally Once a day Doxazosin Mesylate 1 MG Tablet 1 tablet Orally Once a day Medication List reviewed and reconciled with the patientNot-Taking/PRN acetaZOLAMIDE 125 MG Tablet 1 tablet Orally Twice a day Not-Taking/PRN Claritin-D 24 Hour 10-240 MG Tablet Extended Release 24 Hour 1 tablet as needed Orally Once a day Not-Taking/PRN Doxazosin Mesylate 1 MG Tablet 1 tablet Orally Once a day Medication List reviewed and reconciled with the patient * Allergies:?N.K.D.A.yes[Aller gies Verified] Objective: * Vitals:?Ht: 61.50, Wt: 128, BMI:23.79, BP:140/68, Wt-k.06. weight is up 3 pounds since 10-21-24. * Examination: ???General Examination: ?GENERAL APPEARANCE:?alert, well hydrated, in no distress.?SKIN:?good turgor.?HEART:?regular rate and rhythm, no murmurs, rubs, gallops.?LUNGS:?no wheezes, rales, rhonchi, good air movement, clear to auscultation bilaterally.?BACK:?spine nontender to palpation.? Assessment: * Assessment: 1.?Back pain - M54.9 (Primar y)??? has tried physical therapy, had injections and nerve block which was unsuccessful Plan: * Treatment: * Procedure Codes:? * * Sign off status: Completed true * Provider:?Luciano Mack MD Date:?0 01/06/2025 Generated for Sera horner/Jessie/Arelismitting on:?01/20/2025 12:47 PM EDT History and Physical Notes * HPI (History of Present Illness) Category Sub-Category Detail Notes Category Not es Symptom(s) patient is a 79 yo male here as emergency. called neurosurgery and they said that i need mri. Examination Category Sub-Category Detail Notes Category Not es General Examination GENERAL APPEARANCE: alert, w ell hydrated, in no distress HEART: regular rate and rhy thm, no murmurs, rubs, gallops LUNGS: no wheezes, rales, r honchi, good air movement, clear to auscultation bilaterally SKIN: good turgor BACK: spine nontender to p alpation
== END 2025-01-20 11:51 | disposition home or self-care (01) ==
PROVIDERS: PCP Internal Medicine; Visit Provider Physician Assistant
DX: M51.369 Other intervertebral disc degeneration, lumbar region without mention of lumbar back pain or lower extremity pain (principal)
CPT/HCPCS: 99204

== ENCOUNTER 2025-01-20 10:53 | Outpatient (REF) | payer MEDICARE, OTHER, SELFPAY ==
--- NOTE | ~2025-01-20 | XR_ITS ---
EXAMINATION: XR LUMBOSACRAL SPINE CLINICAL INFORMATION: M51.369 - Other intervertebral disc degeneration, lumbar region without ... COMPARISON: None available. TECHNIQUE: 4 views of the lumbar spine, inclusive of flexion and extension views, were obtained. FINDINGS: There is a mild to moderate levoconvex scoliosis, apex at L2-3. Normal lordosis. No fracture, compression deformity, or suspicious bone lesion. On the neutral projection, there is a 3 mm retrolisthesis of L1 on L2, with no additional subluxation evident. Severe disc degeneration present L5-S1. There is moderate disc degeneration at T12-L1. There is otherwise only mild disc degeneration present. Normal facet alignment. Multilevel mild to moderate degenerative facet changes present bilaterally spanning L3-S1. Flexion and extension views demonstrate no significant change in the alignment of the spine. No evidence of instability although questionable patient effort. Diffuse vascular calcifications are present. There is a partially imaged right hip prosthesis. XR/XR lumbar spine 4V min IMPRESSION: 1. Moderate degenerative spondylosis with a mild to moderate levoconvex scoliosis. Findings are most significant at L5-S1. 2. No evidence of instability although questionable patient effort on flexion and extension views. Electronically signed by: Noel Beckman MD 01/21/2025 02:40 PM EDT RP
--- OUTSIDE RECORDS SUMMARY | 2025-01-20 13:24 | XMS_ITS | Clinical Summary ---
Author Organization [facility] Address [address] [place] [address] Care Team Providers Care Scheduling Analyst Name Role Phone Unavailable Primary Care Provider [...]
--- OUTSIDE RECORDS SUMMARY | 2025-01-20 13:24 | XMS_ITS ---
Author Organization [facility] Address [address] [place] [address] Care Team Providers Care Cessation Systems Outreach Specialist Name Role Phone Frederick MUNGUIA, Luciano Primary Care Provider Jameel Martin Jr [phone] REASON FOR VISIT HEME POSITIVE STOOL, ACID REFLUX Problems Problem Type SNOMED Code ICD Code Onset Dates Problem Status W/U Status Risk Notes Problem Gastro-esophagea l reflux disease without esophagitis (203238422) Gastro-esophage al reflux disease without esophagitis (K21.9) Active confirmed Encounters Encounter Location Date Provider Diagnosis [facility] Outpatient [address] [place] [phone] 05/10/2024 Jameel Reyes Jr Change in bowel [...] No Information Progress Notes * PASTORA CORNEJODOB:1944 (79 yo M)Acc No.[id number]:05/10/2024 EGD and COL/MAC Patient:?PASTORA CORNEJO Provider:?Jameel Reyes MD :1945???Age:79 Y???Sex:Male Sony e:05/10/2024 Address: [address] , [place], [id number] Pcp:Luciano Mack MD Subjective: * Chief Complaints: * ???1. HEME POSITIVE STOOL, A DANIEL REFLUX. * Medical History:? Objective: * Vitals:? Assessment: * Assessment: 1.?Change in bowel movement - R19.8 (Primary)???2.?Heme + stool - R19.5???3.?Gastro-esophageal reflux disease without esophagitis - K21.9??? Plan: * Treatment: * Procedure Codes:?72238 DIAGN OSTIC COLONOSCOPY, 0529F INTRVL 3+YRS PTS CLNSCP DOCD, [address] EGD BALLOON DIL ESOPH30 MM/> * * The named appointment provid er may or may not be the originator of this progress note, and it is not deemed complete until electronically signed by the appointment provider. Sign off status: Pending * Provider:?Jameel Reyes MD Date:?0 05/10/2024 Generated for Sera horner/Jessie/eTransmitting on:?01/20/2025 01:23 PM EDT
--- OUTSIDE RECORDS SUMMARY | 2025-01-20 13:24 | XMS_ITS | Patient Health Record ---
Author Organization [facility] Address [address] [place] [address] Care Team Providers Care Automotive Quality Manager Name Role Phone Luciano Mack MD Primary Care Provider Jameel Martin Jr Unavailable Allergies Allergen (clinical drug ingredient) Drug/Non Drug Allergy documented on EMR Reaction Allergy Type Onset Date Status Dog dander Dog Dander Unknown Allergy Active mostly everything outdoors (uncoded) Unknown Allergy Active Reason For Referral No Information Medications Medication SIG (Take, Route, Frequency, Duration) Notes Start Date End Date Status Diclofenac Active Astaxanthin Active Xiidra 5 % INSTIL 1 DROP 2X ANY LY INTO BOTH EYES Ophthalmic for 30 Active traZODone HCl 150 MG 1 tablet at bedtime Orally Once a day Active Valsartan 80 MG 1 tablet Orally Once a day for 30 day(s) Active amLODIPine Besylate 2.5 MG 1 tablet Oral ly Once a day for 30 day(s) Active Montelukast Sodium 10 MG 1 tablet Orally Once a day for 30 day(s) Active Viagra Active Aspirin Adult Low Strength Active Esomeprazole Sodium 40 MG 1 tablet orall y once a day Active Atorvastatin Calcium 80 MG 1 tablet Oral ly Once a day Active MiraLax (colon prep) 17 GM/SCOOP mixed with Gatorade or Crystal Light Orally begin at 5:00 p.m. the day before the procedure for 1 day 04/26/2024 Active Immunizations Vaccine Route Administration Date Status Comme nts Flu vaccine no Preserv 3 and > Unknown 07/02/2015 Admin istered Influenza Unknown 06/09/2016 Administered Problems Problem Type SNOMED Code ICD Code Onset Dates Problem Status W/U Status Risk Notes Problem 626166656 Colon cancer screening (Z12.11) Active confirmed Problem 337621653 penit[facility]iary curren t use of aspirin (Z79.82) Active confirmed Problem Gastro-esophage al reflux disease without esophagitis (861556896) Gastro-esophageal reflux disease without esophagitis (K21.9) Active confirmed Problem 458072274 Gastroesophageal reflux disease without esophagitis (K21.9) Active confirmed Problem 520188226 Abnormal finding s in stool (R19.5) Active confirmed Problem 713235931 Abnormal UGI ser ies (R93.3) Active confirmed Problem 79604221 Change in bowel movement (R19.8) Active confirmed Vital Signs Blood pressure diastolic 00 mm Hg 04/26/2024 Height 62 in 04/26/2024 Blood pressure systolic 00 mm Hg 04/26/2024 Weight 120 lbs 04/26/2024 BMI 21.95 kg/m2 04/26/2024 Encounters Encounter Location Date Provider Diagnosis [facility] Outpatient [address] [place], [place] [phone] 05/10/2024 Jameel Reyes Jr Change in bowel movement R19.8 ; Heme + stool R19.5 and Gastro-esophageal reflux disease without esophagitis K21.9 [facility] [address] [place] [address] 04/26/2024 Jameel Reyes Jr Abnormal findings in stool R19.5 ; Change in bowel movement R19.8 and Gastroesophageal reflux disease without esophagitis K21.9 Assessments Encounter Date Diagnosis (ICD Code) Assessment Notes Treatment Notes Treatment Clinical Notes Section Notes 05/10/2024 Heme + stool (ICD-10 - R19.5) 05/10/2024 Change in bowel movement (ICD-10 - R19.8) 04/26/2024 Abnormal findings in stool (ICD-10 - R19.5) Endoscopy material was printed We discussed gastroesophageal reflux disease today. We discussed blood in stool and different causes. We recommended upper endoscopy and colonoscopy for further evaluation. He is advised stop aspirin and diclofenac one week before the procedure. 04/26/2024 Change in bowel movement (ICD-10 - R19.8) We discussed gastroesophageal reflux disease today. We discussed blood in stool and different causes. We recommended upper endoscopy and colonoscopy for further evaluation. He is advised stop aspirin and diclofenac one week before the procedure. 05/10/2024 Gastro-esophageal reflux disease without esophagitis (ICD-10 - K21.9) 04/26/2024 Gastroesophageal reflux disease without esophagitis (ICD-10 - K21.9) We discussed gastroesophageal reflux disease today. We discussed blood in stool and different causes. We recommended upper endoscopy and colonoscopy for further evaluation. He is advised stop aspirin and diclofenac one week before the procedure. Plan Of Treatment Future Test Test Name Order Date COLONOSCOPY 07/16/2015 UPPER GI ENDOSCOPY 03/08/2017 UPPER GI ENDOSCOPY 04/26/2024 COLONOSCOPY 04/26/2024 Insurance Providers Payer Name Payer Address Payer Phone Subscriber Number Group Number Insured Name Patient Relationship to Insured Coverage Start Date Coverage End Date MEDICARE OF [place] [address] [place] [address] [id number] PASTORA CORNEJO Self - patient is the insured [employer] Insurance ([employer]) [address] [place] [address] [id number] PASTORA CORNEJO Self - patient is the insured Medical (General) History Medical History History ICD Code HTN SINUS ALLERGIES SLEEP APNEA elevated cholesterol osteoarthritis abnormal EKG Gastroesophageal reflux disease, EGD 03/09 7, fundic gland polyps. Surgical History Surgery Date(Month/Year) Lasix eye Surgery coronary artery disease and CABG x3, complicated by CVA with memory issues 10/2015 colonoscopy, 10 year recall optional bas ed on age 1016/15 Hip replacement
--- OUTSIDE RECORDS SUMMARY | 2025-01-20 13:24 | XMS_ITS | Clinical Summary ---
Author Organization [facility] Address [address] [place] [address] Care Team Providers Care Strategic Planner Name Role Phone Unavailable Primary Care Provider Unavailabl e Social History Tobacco Use Types Packs/Day Years Used Date Smoking Tobacco: Never Assessed Sex and Gender Information Value Date Recorded Sex Assigned at Not on file Gender Identity Not on file Sexual Orientation Not on file Plan of Treatment Not on file
--- OUTSIDE RECORDS SUMMARY | 2025-01-20 13:24 | XMS_ITS ---
Author Organization [facility] Address [address] [place] [address] Care Team Providers Care Relocation Manager Name Role Phone Frederick MUNGUIA, Luciano Primary Care Provider Jameel Martin Jr Unavailable [phone] Allergies Allergen (clinical drug ingredient) Drug/Non Drug Allergy documented on EMR Reaction Allergy Type Onset Date Status Dog dander Dog Dander Unknown Allergy Active mostly everything outdoors (uncoded) Unknown Allergy Active REASON FOR VISIT POSITIVE GUAIAC Medications Medication SIG (Take, Route, Frequency, Duration) Notes Start Date End Date Status Xiidra 5 % INSTIL 1 DROP 2X ANY LY INTO BOTH EYES Ophthalmic for 30 Active traZODone HCl 150 MG 1 tablet at bedtime Orally Once a day Active Valsartan 80 MG 1 tablet Orally Once a day for 30 day(s) Active Aspirin Adult Low Strength Active Esomeprazole Sodium 40 MG 1 tablet orall y once a day Active Atorvastatin Calcium 80 MG 1 tablet Oral ly Once a day Active Diclofenac Active amLODIPine Besylate 2.5 MG 1 tablet Oral ly Once a day for 30 day(s) Active Montelukast Sodium 10 MG 1 tablet Orally Once a day for 30 day(s) Active Viagra Active MiraLax (colon prep) 17 GM/SCOOP mixed with Gatorade or Crystal Light Orally begin at 5:00 p.m. the day before the procedure for 1 day 04/26/2024 Active Astaxanthin Active Problems Problem Type SNOMED Code ICD Code Onset Dates Problem Status W/U Status Risk Notes Problem 432238176 Abnormal finding s in stool (R19.5) Active confirmed Problem 34620432 Change in bowel movement (R19.8) Active confirmed Problem [id number] Gastroesophageal reflux disease without esophagitis (K21.9) Active confirmed Vital Signs Blood pressure systolic 00 mm Hg 04/26/20 24 Blood pressure diastolic 00 mm Hg 024 Height 62 in 04/26/2024 Weight 120 lbs 04/26/2024 BMI 21.95 kg/m2 04/26/2024 Encounters Encounter Location Date Provider Diagnosis [facility] [address] [place] [address] 04/26/2024 Jameel Reyes Jr Abnormal findings in stool R19.5 ; Change in bowel movement R19.8 and Gastroesophageal reflux disease without esophagitis K21.9 Assessments Encounter Date Diagnosis (ICD Code) Assessment Notes Treatment Notes Treatment Clinical Notes Section Notes 04/26/2024 Abnormal findings in stool (ICD-10 - [...] diclofenac one week before the procedure. 04/26/2024 Gastroesophageal reflux disease without esophagitis (ICD-10 - K21.9) We discussed gastroesophageal reflux disease today. We discussed blood in stool and different causes. We recommended upper endoscopy and colonoscopy for further evaluation. He is advised stop aspirin and diclofenac one week before the procedure. Plan Of Treatment Medication Medication Name Sig Start Date Stop Date Notes MiraLax (colon prep) 17 GM/SCOOP mixed with Gatorade or Crystal Light Orally begin at 5:00 p.m. the day before the procedure for 1 day 04/26/2024 Treatment Notes Assessment Notes Abnormal findings in stool Endoscopy mat nurys was printed Future Test Test Name Order Date UPPER GI ENDOSCOPY 04/26/2024 COLONOSCOPY 04/26/2024 Next Appt Details Follow Up: 1 Year, Reason: Progress Notes * PASTORA CORNEJO:1944 (79 yo M)Acc No.[id number]:04/26/2024 Progress Notes Patient:?PASTORA CORNEJO Number:[id number] Provider:?Jameel Reyes MD :1945???Age:79 Y???Sex:Male Sony e:04/26/2024 Address:[id number] Pcp:Luciano Mack MD Subjective: * Chief Complaints: * ???1. POSITIVE GUAIAC. * HPI: ???New symptom(s):? The patient is a pleasant 79-year-old man seen today in consultation. He was found to have Hemoccult-positive stools at the time of his examination with his primary care provider earlier this year. He has no complaints of rectal bleeding, but does have a change in his bowel movements with constipation alternating with diarrhea this initially responded to increasing the amount of fiber in his diet but has recurred somewhat. ?He previously was evaluated with colonoscopy in September 2015 which showed diverticulosis. He had upper endoscopy in March of 2017 because of an abnormal upper GI series and reflux symptoms. This showed benign gastric polyps. We reviewed this today. He reports reflux symptoms are under good control on omeprazole with no dysphagia, hematemesis, or melena. * ROS:?General/Constitutional:?Change in appetite?denies.?Fatigue?denies.?ENT:?Patient denies?difficulty swallowing.?Respiratory:?Patient denies?shortness of breath.?Cardiovascular:?Patient denies?chest pain.?Gastrointestinal:?Comments?See HPI for details.?Genitourinary:?Difficulty urinating?denies.?Incontinence?denies.?Musculoskeletal:?Patient denies?muscle aches.?Skin:?Patient denies?pruritis.?Neurologic:?Patient denies?low back pain.?Psychiatric:?Patient denies?mental or physical abuse.? * Medical History:?HTN, SINUS ALLERGIES, SLEEP APNEA, Elevated cholesterol, Osteoarthritis, abnormal EKG, Gastroesophageal reflux disease, EGD 03/25, fundic gland polyps.. * Surgical History:?Lasix eye Surgery , coronary artery disease and CABG x3, complicated by CVA with memory issues 10/2015, colonoscopy, 10 year recall optional based on age 1209/23/15, Hip replacement . * Family History:?Father: dece ased, diagnosed with Heart disease, HTN (hypertension).?Mother: .? denies family hx of any colon ca, colon polyps sister with IBS?. * Social History:?Tobacco Use:?Tobacco Use/Smoking?Are you a: nonsmoker.?Drugs/Alcohol:?Alcohol Screen?Points: 2, Interpretation: Negative.?Miscellaneous:?Marital status: . Occupation: retired. * Medications:?Taking Astaxant hin , Taking Diclofenac , Taking Viagra , Taking Montelukast Sodium 10 MG Tablet 1 tablet Orally Once a day, Taking amLODIPine Besylate 2.5 MG Tablet 1 tablet Orally Once a day, Taking Valsartan 80 MG Tablet 1 tablet Orally Once a day, Taking Aspirin Adult Low Strength , Taking Atorvastatin Calcium 80 MG Tablet 1 tablet Orally Once a day, Taking Esomeprazole Sodium 40 MG tablet 1 tablet orally once a day, Taking traZODone HCl 150 MG Tablet 1 tablet at bedtime Orally Once a day, Taking Xiidra 5 % Solution INSTIL 1 DROP 2X DAILY INTO BOTH EYES Ophthalmic , Discontinued CeleBREX 200 MG Capsule 1 capsule Orally Once a day, Discontinued Doxazosin Mesylate 1 MG Tablet 1 tablet Orally Once a day, Discontinued Metoprolol Tartrate 25 MG Tablet 1 tablet with food Orally once a day, Discontinued Melatonin ER 10 MG Tablet Extended Release 2 tablets in the evening as needed with food Orally Once a day, Discontinued Cialis 5 MG Tablet TAKE 1 TABLET BY MOUTH EVERY DAY Oral , Medication List reviewed and reconciled with the patient * Allergies:?mostly everything outdoors, Dog Dander. Objective: * Vitals:?Wt: 120 lbs, Ht: 62 in, BMI:21.95 Index, BP: 00/00 mm Hg. * Examination: ???General Examination: ?GENERAL APPEARANCE:?in no acute distress.?HEAD:?normocephalic.?EYES:?sclera non-icteric.?ORAL CAVITY:?mucosa moist.?NECK/THYROID:?no lymphadenopathy.?SKIN:?anicteric.?HEART:?S1, S2 normal, no murmurs.?LUNGS:?clear to auscultation bilaterally.?CHEST:?normal shape and expansion.?ABDOMEN:?soft, nontender, nondistended, bowel sounds present, no organomegaly .?EXTREMITIES:?no clubbing, cyanosis, or edema.?PSYCH:?cognitive function intact.? Assessment: * Assessment: 1.?Abnormal findings in stoo l - R19.5 (Primary)?2.?Change in bowel movement - R19.8?3.?Gastroesophageal reflux disease without esophagitis - K21.9? We discussed gastroesophagea l reflux disease today. We discussed blood in stool and different causes. We recommended upper endoscopy and colonoscopy for further evaluation. He is advised stop aspirin and diclofenac one week before the procedure. Plan: * Treatment: Notes: Endoscopy material was printed?? * Procedure Codes:?G9903 Pt sc rn tbco id as non user, G9744 PATIENT NOT ELIG D/T ACTIVE DX HTN * Preventive Medicine:? ??Screenings:?Fall Risk Screening?Fall Risk Assessment:?No falls in the past year.? * Follow Up:?1 Year * * Sign off status: Completed true * Provider:?Jameel Reyes MD Date:?0 04/26/2024 Generated for Sera horner/Jessie/eTransmitting on:?01/20/2025 01:23 PM EDT History and Physical Notes * HPI (History of Present Illness) Category Sub-Category Detail Notes Category Not es New symptom(s) The patient is a pleasant 79-year-old man seen today in consultation. He was found to have Hemoccult-positive stools at the time of his examination with his primary care provider earlier this year. He has no complaints of rectal bleeding, but does have a change in his bowel movements with constipation alternating with diarrhea this initially responded to increasing the amount of fiber in his diet but has recurred somewhat. He previously was evaluated with colonoscopy in September 2015 which showed diverticulosis. He had upper endoscopy in March of 2017 because of an abnormal upper GI series and reflux symptoms. This showed benign gastric polyps. We reviewed this today. He reports reflux symptoms are under good control on omeprazole with no dysphagia, hematemesis, or melena. Examination Category Sub-Category Detail Notes Category Not es General Examination GENERAL APPEARANCE: in no acute di stress HEAD: normocephalic EYES: sclera non-icteric NECK/THYROID: no lymphadenopathy HEART: S1, S2 normal, no mu rmurs CHEST: normal shape and exp ansion LUNGS: clear to auscultatio n bilaterally ABDOMEN: soft, nontender, non distended, bowel sounds present, no organomegaly SKIN: anicteric EXTREMITIES: no clubbing, cyanosi s, or edema PSYCH: cognitive function i ntact ORAL CAVITY: mucosa moist
== END 2025-01-20 10:54 | disposition home or self-care (01) ==
LOC: HO.HOSX 10:53
PROVIDERS: PCP Internal Medicine; Visit Provider Physician Assistant
DX: M51.369 Other intervertebral disc degeneration, lumbar region without mention of lumbar back pain or lower extremity pain (principal); M47.817 Spondylosis without myelopathy or radiculopathy, lumbosacral region; G89.29 Other chronic pain
CPT/HCPCS: 72110; 99202

== ENCOUNTER → 2025-01-20 11:27 | Outpatient (BNV) | payer MEDICARE, OTHER, SELFPAY | PROVIDERS: PCP Internal Medicine; Visit Provider Radiology Diagnostic Radiology | DX: M47.896 Other spondylosis, lumbar region (principal); M41.86 Other forms of scoliosis, lumbar region | CPT/HCPCS: 72110 ==

== ENCOUNTER → 2025-02-03 08:51 | Outpatient (REF) | payer MEDICARE, OTHER, SELFPAY ==
--- NOTE | 2025-02-03 08:54 | CA_ITS ---
Transthoracic Echocardiogram Patient (Last, First, Middle): Riccardo Pierson J Gender: Male Date of : 1945 Age: 79 Procedure Date: 02/03/2025 Procedure Type: Transthoracic Echocardiogram Location: OP Height: 157.48 cm Weight: 56.7 kg BSA: 1.57 m2 Heart Rate: 51 bpm BP: 120 / 72 mmHg Biochemistry Technologist: SB Referring MD: Driss Aguero MD Symptoms: I35.0 - Nonrheumatic aortic (valve) stenosis Study Quality: Adequate ECG Rhythm: Bradycardia Conclusions: - The left ventricular systolic function is low normal. The visually estimated ejection fraction is between 50-55%. - There is moderate septal asymmetric hypertrophy. - There is mild aortic valve stenosis. Findings Left Ventricle Normal left ventricular cavity size. The left ventricular systolic function is low normal. The visually estimated ejection fraction is between 50-55%. There is no evidence of regional wall motion abnormalities. Diastolic function is normal for age. There is moderate septal asymmetric hypertrophy. Right Ventricle Mildly increased right ventricular cavity size. There is mildly decreased right ventricular systolic function. Atria The left atrium is mildly dilated. The right atrium is moderately dilated. Aortic Valve There is a normal trileaflet aortic valve. There is mild calcification of the aortic valve. There is mild aortic valve stenosis. The mean gradient is 8 mmHg. The aortic valve area is 1.58 cm2. There is no aortic valve regurgitation. Dimensionless index 0.39. Mitral Valve The mitral valve appears normal. There is trace mitral valve regurgitation. There is no mitral valve stenosis. Pulmonic Valve There is trace to mild pulmonic valve regurgitation. Tricuspid Valve There is mild tricuspid valve regurgitation. There is no evidence of pulmonary hypertension. Great Vessels The asc aorta is normal in size. Venous The inferior vena cava is normal in size and collapses less than 50% with inspiration. Pericardium/Pleural There is no evidence of pericardial effusion. Prior Study Comparison No significant change compared to prior study dated: 02/06/2024. Measurements 2D Linear Measurements IVSd: 1.50 0.6-0.9/0.6-1.0 cm LVIDd: 4.42 3.9-5.3/4.2-5.9 cm LVIDd Index: 2.82 2.4-3.2/2.2-3.1 cm/m2 LVIDs: 3.21 2.0-3.6 cm LVPWd: 1.03 0.7-1.1 cm LA Diam: 4.40 2.7-3.8/3.0-4.0 cm LAIDs Index: 2.80 1.5-2.3 cm/m2 LV Mass: 259.33 67-162/88-224 g LV Mass Index: 165.18 43-95/49-115 g/m2 LVOT Diam: 2.20 3.0+(-)1.3 cm 2D Systolic Function EF 4C: 50.90 >55% EF 2C: 59.60 >55% EF BiP: 55.40 >55% Mitral Valve MV Pk E: 0.49 MV PK A: 0.63 MV Decel Time: 339.00 E/A: 0.80 E'Lateral: 5.33 E'Medial: 6.20 E/E' Med: 7.90 E/E' Lat: 9.20 PHT: 99.00 MVA PHT: 2.22 Decel [place]: 1.44 Aortic Valve AoV Pk Sigifredo: 1.80 AoV Mn Sigifredo: 1.30 AoV VTI: 0.40 AoV Pk Grad: 13.00 Aov Mn Grad: 8.00 HANNAH Cont.VTI: 1.58 LVOT LVOT Pk Sigifredo: 0.71 LVOT Mn Sigifredo: 0.54 LVOT VTI: 0.17 LVOT Pk Grad: 2.00 LVOT Mn Grad: 1.00 LVOT Diam: 2.20 LVOT Area: 3.80 Diastolic Function MV Pk E: 0.49 MV Pk A: 0.63 E/A: 0.80 E'Medial: 6.20 E/E' Med: 7.90 E' Laterial: 5.33 E/E' Lat: 9.20 Right Ventricle TAPSE (mm): 11.50 TVS' Sigifredo: 9.90 Tricuspid Valve TR Pk Sigifredo: 2.52 TR Pk Grad: 25.00 RA Press: 3.00 RVSP: 28.00 Great Vessels Aorta Sinus of Valsalva: 3.50 2.0-3.5 cm Ao Asc: 3.30 2.1-3.4 cm Pulmonary Valve PV Pk Sigifredo: 1.13 Peak PV Grad: 5.00 DE Pk Sigifredo: 1.98 Updated in Other Vendor System with Status of Final Filiberto Terry MD electronically signed on 02/03/2025 10:14:02 AM with status of Final
--- OUTSIDE RECORDS SUMMARY | 2025-02-03 09:29 | XMS_ITS | Clinical Summary ---
Author Organization [facility] Address [address] [place] [address] Care Team Providers Care Sawmill Hand Name Role Phone Unavailable Primary Care Provider Unavailabl e Social History Tobacco Use Types Packs/Day Years Used Date Smoking Tobacco: Never Assessed Sex and Gender Information Value Date Recorded Sex Assigned at Not on file Gender Identity Not on file Sexual Orientation Not on file Plan of Treatment Not on file
--- OUTSIDE RECORDS SUMMARY | 2025-02-03 09:29 | XMS_ITS | Clinical Summary ---
Author Organization [facility] Address [address] [place] [address] Care Team Providers Care Bow String Maker Name Role Phone Unavailable Primary Care Provider Unavailabl e Social History Tobacco Use Types Packs/Day Years Used Date Smoking Tobacco: Never Assessed Sex and Gender Information Value Date Recorded Sex Assigned at Not on file Legal Sex Male 3:20 PM EDT Gender Identity Not on file Sexual Orientation [...]
== END ==
LOC: HO.CARD 08:51
PROVIDERS: PCP Internal Medicine; Visit Provider Internal Medicine Cardiovascular Disease
DX: I35.0 Nonrheumatic aortic (valve) stenosis (principal)
CPT/HCPCS: 93306

== ENCOUNTER → 2025-02-03 08:54 | Outpatient (BNV) | payer MEDICARE, OTHER, SELFPAY | PROVIDERS: PCP Internal Medicine; Visit Provider Internal Medicine | DX: I35.0 Nonrheumatic aortic (valve) stenosis (principal); I42.2 Other hypertrophic cardiomyopathy; I35.8 Other nonrheumatic aortic valve disorders; I37.1 Nonrheumatic pulmonary valve insufficiency | CPT/HCPCS: 93306 ==

== ENCOUNTER 2025-02-06 09:20 | Outpatient (AMB) | payer MEDICARE, OTHER, SELFPAY ==
--- NOTE | 2025-02-06 09:24 | MHC.OFFVIS ---
Vital Signs 02/06/25 09:25 Height 5 ft 2 in Weight 125 lb 10.616 oz BMI 23.0 BP 130/80 Blood Pressure Location Lt brachial Position Sitting Respiration 16 Pulse 51 Intake Visit Reasons: 1 yr s/p echo Intake Note: 1 year follow-up with ekg after echo feeling good Electronic Warfare Operator Required: No Fruit Picker: Fruit Picker Present Accompanied by: Spouse Allergies Seasonal Allergies Allergy (Unknown, Verified 05/08/24 14:47) Unknown Medication List - Last Reconciled 02/06/25 by Driss Aguero MD amlodipine 2.5 mg PO DAILY aspirin (Adult Low Dose Aspirin) 81 mg PO DAILY atorvastatin 80 mg PO DAILY cyclosporine 0.05% 1 drp ophthalmic (eye) BID diclofenac potassium 50 mg PO BID PRN esomeprazole magnesium 40 mg PO BID montelukast 10 mg PO QPM valsartan 80 mg PO DAILY HPI Comments Details: Riccardo comes for follow-up. He is accompanied by his . He continues remain active and walks on a treadmill on a regular basis at home. Denies any exertional chest pain or shortness of breath. As per the he has been having recurrent episodes of burning in his chest which she usually is resolve with taking antacids and/or increased as esomeprazole. Symptoms are not associated with exertion. Discussed with patient about this and says that he does not get any exertional symptoms otherwise very active. Recent echo shows low normal LV ejection fraction with mild aortic stenosis. Unchanged from before. Denies any palpitations. No lightheadedness, syncope. No heart failure symptoms. Taking all his medications. Last LDL was well optimized at 53 PFSH Medical History GERD (gastroesophageal reflux disease) Osteoarthritis Sleep apnea HTN (hypertension) Cardiomyopathy LBBB (left bundle branch block) Hyperlipidemia CVA (cerebral vascular accident) CAD (coronary artery disease) Surgical History History of esophagogastroduodenoscopy (EGD) S/P CABG x 3 Hx of colonoscopy History of nasal surgery Hx of cardiac cath Family History Father CVD (cardiovascular disease) Mother Cancer Social History Alcohol intake: current Patient Tobacco Use Status: Never used Tobacco Review of Systems Const Denies chills, Denies fatigue, Denies fever(s), Denies frequent falls, Denies weakness, Denies weight gain and Denies weight loss ENT Denies dizziness Card Denies chest pain, Denies leg edema, Denies lightheadedness, Denies palpitations, Denies dyspnea, Denies dyspnea on exertion, Denies orthopnea and Denies other (loss of consciousness) Resp Denies cough, Denies dyspnea and Denies dyspnea on exertion GI Denies hematochezia and Denies change in stool character Musc Denies abnormal gait, Denies muscle weakness, Denies numbness, Denies radiating pain into limb and Denies tingling Neuro Denies abnormal gait, Denies dizziness, Denies frequent falls, Denies numbness, Denies tingling and Denies weakness Endo Denies fatigue and Denies palpitations Physical Exam Vital Signs: Last Vital Signs Pulse 51 02/06/25 09:25 Resp 16 02/06/25 09:25 BP 130/80 02/06/25 09:25 BMI result Body Mass Index 23.0 Const General: cooperative, comfortable, alert and awake Nutritional Appearance: thin Orientation/consciousness: patient oriented x3 Limitations: no limitations Neck Neck: Yes trachea midline, Yes supple and Yes no JVD Chest Chest palpation & inspection: normal inspection of the chest and other (Well-healed sternotomy scar) Resp Effort & Inspection: normal respiratory effort Auscultation: clear to auscultation bilaterally Cardio Jugular venous distension: no JVD Palpation: normal PMI Rate: regular rate Rhythm: regular rhythm Heart sounds: S1 normal heart sound present, S2 normal heart sound present and Murmur heart sound present systolic early Skin General skin exam: no rashes or lesions noted Neuro General: patient oriented x3 and no focal motor deficits Extrem General: Yes no clubbing, cyanosis or edema Psych Appearance: grossly normal Office Procedures EKG Details: EKG shows sinus bradycardia with right axis deviation with nonspecific intraventricular conduction block with poor R-wave progression with left bundle-branch morphology with diffuse inferior and inferolateral T-wave changes suggestive of repolarization abnormality [id number], Complete Assessment & Plan Assessment & Plan (1) CAD (coronary artery disease): Comment: follows w/HCS Code(s): I25.10 - Atherosclerotic heart disease of [place] coronary artery without angina pectoris Category: Medical Plan: CAD with remote three-vessel coronary artery bypass grafting without any current symptoms suggestive of angina. His heartburn symptoms are most suggestive of acid reflux disease although his upper endoscopy was benign last year. Advised to follow up with Gastroenterology. If his symptoms change in her exertional will require more further workup to evaluate for graft patency. This was discussed the patient. Advised to call me with any new symptoms. For now continue low-dose aspirin therapy. Continue high-intensity statin therapy. LDL is well optimized. Continue aggressive blood pressure control as well. (2) Aortic stenosis: Code(s): I35.0 - Nonrheumatic aortic (valve) stenosis Category: Medical Plan: Aortic stenosis which remains mild. No interventions required for the same. Continue aggressive medical therapy as above. Low-dose aspirin therapy as above. Follow-up echocardiogram in 1 year's time. Will follow up in the clinic 1 year's time, sooner p.r.n.. Thank you for allowing me to partake in his care Coding Level of Care Code Est Pt Level 4 (71314) Complex EM visit Add On G2211 Diagnoses CAD (coronary artery disease) I25.10 Aortic stenosis I35.0 CPT Codes EKG - CPT: 19333-[id number], Complete ([id number])
[2025-02-06 09:25] VITALS: BP 130/80; PULSE 51; RESP 16; BMI 23.0
--- OUTSIDE RECORDS SUMMARY | 2025-02-06 10:10 | XMS_ITS | Data Portability ---
Author Organization [place] - [facility], [facility] Address [address] [place] [address] Care Team Providers Care Wood Carving Lathe Operator Name Role Phone JOCE BEJARANO Referring Provider [phone] DANIEL HAILE Referring Provider Assessment Encounter Date Assessment Date Assessment LastModified by Organization Details LastModified Time 06/08/2016 06/08/2016 [facility] Plan of Care Start of Care:Jun 08, 2016 Referring Physician: PELON Dx: Cervicalgia ASSESSMENT 1. Impaired posture and/or impaired muscle performance 2. Impaired joint mobility, motor function, muscle performance, and ROM associated with capsular restriction or ligament/connect wes tissue disorders 3. Impaired joint mobility, motor function, muscle performance, and ROM associated with inflammatory response REHAB POTENTIAL : Excellent SIGNIFICANT FINDINGS/IMPAIRM ENTS: 1. PAIN: Acute/Subacute/C hronic2. LIMITED ROM/JOINT MOBILITY3. DECREASED STRENGTH/MUSCLE WEAKNESS4. MUSCLE SPASM/GUARDING 5. IMPAIRED MOTOR FUNCTION/BALANCE 6. IMPAIRED POSTURE Anticipated mcfp goals to be achieved by: Jul 19, 2016 1. Functional reporting score <20% 2. Return to previous functional level with activities at home, work, or sports/recreatio n 3. Independent with home exercise program in managing minor symptoms 4. STRENGTH: Pt will increase MMT to hold TA and Axial Ext w/ functional activities 5. ROM: Pt will increase ROM to WNL c-spine and SLR B LE 6. PAIN: Decrease pain rating 0-1/10 (worst in the past 24 hours) Anticipated short term goals to be achieved by: , PLAN: Based on objective findings during patient evaluation and functional defiencies MODALITIES to treat pain, muscle spasm/guarding, edema, tissue texture changes, IVD disorders, muscle weakness: 1. Electrical stimulation HV/IFC/TAY/VMS 2. Mechanical traction-Static or intermittent 3. Massage THERAPEUTIC INTERVENTIONS to improve ROM, strength, muscle performance, motor function, and posture: 1. Warm-up/Flexibil ity/ROM EX 2. Strengthening 3. Neuromuscular Re-education: Stability/Balanc e/Proprioception 4. Agility/Coordina tion 5. Therapeutic Activities/Funct ional Training MANUAL THERAPY to improve joint mobility/ROM, soft tissue texture and function, ADL function, and treat pain: 1. Joint Mobilizations/RO M 2. Soft Tissue Mobilizations/My ofascial Mobilizations 3. Manual Traction PATIENT EDUCATION/HOME EXERCISE PROGRAM INSTRUCTION: Home exercise program instruction/ADL modification instruction SPLINT/SUPPLIES : TREATMENT FREQUENCY : Current Prescription 2-3x/wk for4-6 week(s); Estimated Treatment Duration to Discharge: weeks Plan of Care Performed by: Staci Jackson PT [email or web address] Not available 06/08/2016 13:28:57 07/18/2016 07/18/2016 1. Severe DDD C4-C7 with collapse [email or web address] Not available 07/18/2016 08:59:31 07/27/2016 07/27/2016 1. Severe cervical stenosis C2-C4. 2. Improved with meds. Not available 07/27/2016 08:39:13 11/14/2016 11/14/2016 1. Severe Cervical Canal Stenosis 2. Pain right scapular boarder [email or web address] Not available 11/14/2016 10:56:26 01/25/2017 01/25/2017 1. Diffuse cervical degenerative disc disease and stenosis. 2. No myelopathy. 3. Very strong history of prior surgical complications including infection and stroke. Not available 01/31/2017 14:47:57 Plan of Treatment Reminders Order Date Submit Date Provider Last Modified By Organization Details Last Modified Time Details Appointments None recorded. Lab None recorded. Referral None recorded. Procedures injection, trigger point (PROC) 2016 017 [email or web address] [facility], [address] [place], [address], 7 17:00:36 injection, trigger point (PROC) 2016 017 [email or web address] Not available 7 13:10:44 Surgeries None recorded. Imaging MRI, cervical spine, w/o contrast 2015 016 Not available 6 04:01:42 Medication Orders Medrol (Abraham) 4 mg tablets in a dose pack 2015 016 [email or web address] [id number], [address], [place], [address], 7 10:27:39 Patient TargetsNo targets recorded. Patient Instructions Encounter Date Encounter Id Patient Instructions Last Modified By Organization Details Last Modified Time 06/08/2016 [id number] HEP - see nguyen villalba copies, progress as hugo [email or web address] Not available 06/08/2016 13:28:57 07/27/2016 [id number] 1. Long discussion regarding options and risks and benefits of surgery. 2. Pt. will notify office if worse to discuss surgery; will refer to Dr. Sosa or Dr. Long. Not available 07/27/2016 08:44:58 11/14/2016 [id number] CSMO Cortisone Injection-Handout [email or web address] Not available 11/14/2016 13:10:44 1. Discussed surgical options - mariam monitor [email or web address] Not available 11/14/2016 10:57:35 01/25/2017 [id number] CSMO Cortisone Injection-Handout [email or web address] Not available 01/27/2017 11:31:32 Thoracic trigger point injection today. Attempt to avoid surgery. Encounter transcribed by: Yvette Crandall Not available 01/31/2017 14:48:19 Reason for Referral None Reported. Results Created Date Observation Date Name Description Value Unit Range Abnormal Flag Note LastModifiedBy Organization Detail LastModifiedTime 05/27/20 16 05/13/2016 XR, cervi leslie spine No observ ation record ed. [facility] [place] (Imaging) [address], [place], [address], 06/03/2016 14:24:10 07/25/20 16 07/25/2016 MRI, cervi leslie spine [facility] [address] [place] [address] Cervic al Spine HISTOR Y: Neck pain for 3-4 months . COMPAR SANDRINE STUDIE S: None availa ble. TECHNI QUE: Multip lanar sequen daiana with T1, interm ediate , T2, and/or T2*-we ighted image contra st. FINDIN GS: GENERA L: Mild spheno id sinus mucosa l thicke nelida with modera te mucosa l thicke nelida within the right maxill kristine sinus. Mild cerebe llar vermia n atroph y is presen t. No other visual ized intrac ranial abnorm ality. No verteb ral fractu re. No suspic ious marrow signal abnorm ality. Diffus e disc degene ration is seen throug hout the cervic al and visual ized portio ns of the thorac ic spine with modera te anteri or spondy losis at C6-7 and mild anteri or spondy losis at C4-5 with anteri or spondy losis throug hout the visual ized upper thorac ic levels . C1-2 AND CRANIO CERVIC AL JUNCTI ON: Severe narrow ing at the atlant oaxial articu lation anteri mame with eviden ce of a small joint effusi on. There is soft tissue thicke nelida and mild erosio n of the anteri or arch is well is erosio n along the sales producer ior margin of the odonto id with thicke nelida along the transv erse ligame nt. Bowing of the tector ial membra ne is seen but the forame n magnum is widely patent . C2-3: Small right centra l disc osteop hyte comple x. Centra l canal is patent . No signif icant forami nal stenos is. C3-4: Modera te and mostly sales producer ior centra l disc osteop hyte comple x produc ing mild ventra l cord compre ssion in the settin g of modera te spinal stenos is. Severe left and modera te right- sided facet arthro jack is seen with uncove rtebra l hypert rophy also worse to the left. Severe left and modera te right C4 neural forami nal narrow ing is presen t. C4-5: 3 mm grade 1 spondy lolist hesis. Broad- based disc osteop hyte comple x is seen abutti ng the ventra l aspect of the cervic al cord in the settin g of modera te spinal stenos is. Severe left and modera te right- sided facet arthro jack is seen with bilate ral uncove rtebra l hypert rophy presen t. Severe left greate r than right C5 neural forami nal narrow ing is presen t. C5-6: Broad- based and mostly right centra l disc osteop hyte comple x produc ing flatte nelida the ventra l subara chnoid space and mild spinal stenos is. Severe left and modera te right- sided facet arthro jack is presen t with bilate ral uncove rtebra l hypert rophy presen t. Severe bilate ral C6 neural forami nal narrow ing is presen t. C6-7: Small broad- based disc osteop hyte comple x produc ing mild spinal stenos is. Uncove rtebra l hypert rophy signif icantl y worse to the right is seen with severe right and modera te left C7 neural forami nal narrow ing. C7-T1: Grade 1 spondy lolist hesis. Unroof ing of the interv ertebr al disc with uncove rtebra l osteop hyte is presen t contri buting to modera tely severe left and modera te right C8 forami nal stenos is. T1-2, T2-3, T3-4, T4-5: Annula r bulgin g is seen at these 4 levels with endpla te osteop hyte worse to the right at T1-2 and T2-3 produc ing modera te right- sided neural forami nal narrow ing at these levels . Simila r modera te right neural forami nal narrow ing at T3-4 is presen t. CORD AND INTRAS YANG: No cervic al cord or intras yang lesion s. IMPRES DERICK: Diffus e cervic al and upper thorac ic degene rative disc diseas e with spinal stenos is most pronou nced and modera tely severe at C3-4 with compre ssion of the ventra l cervic al cord relate d to a right centra l disc osteop hyte comple x. Ventra l cord abutme nt at C4-5 relate d to a broad- based disc osteop hyte comple x in the settin g of modera te spinal stenos is is also presen t. No other areas of cord contac t are presen t.Mult ilevel marked neural forami nal narrow ing as descri bed. This is most pronou nced and severe on the left at C3-4, severe bilate rally at C4-5, severe bilate rally at C5-6, severe on the right at C6-7, modera tely severe on the left at C7-T1. Parana ayesha sinus diseas e.Mahanoy Plane ion along the sales producer ior odonto id and marked narrow ing of the atlant oaxial articu lation with soft tissue possib ly repres enting pannus . Query inflam matory arthro jack such as rheuma toid or possib ly metabo lic arthro jack such as CPPD.E lectro harlan tom signed by: Asim Castellanos M.D. (Jul 25, 2016 12:36: [email or web address] [employer] [address], [place], [address], 07/28/2016 09:45:45 Result Notes None recorded. Problems Name Problem SNOMED Code Status Onset Date Resolution Date Notes Provider Name and Address Organization Details Recorded Time Neck pain 04242073 Active Staci Jackson, PT [address] [place], [address], [facility] 6 13:28:57 Cervical spondylosis 482126373 Active Aline short [facility] 6 09:49:29 Joint stiffness [id number] Parker Jackson, PT [address] [place], [address], [facility] 6 13:28:57 Muscle atrophy [id number] Parker Jackson, PT [address] [place], [address], [facility] 6 13:28:57 Spasm 36615618 Active Staci Jackson, PT [address] [place], [address], [facility] 6 13:28:57 Problem Notes None recorded. Procedures Surgical History Date Name Laterality Status Provider Name and Address Organization Details Recorded Time 7 INJ Trigger point 1-2 muscles Right completed Charmaine Flores [facility] 01/25/2017 16:59:57 7 INJ Trigger point 1-2 muscles Right completed Iza Lee [facility] 11/14/2016 10:56:56 6 INJ Trigger point 1-2 muscles Right completed Iza Lee [facility] 07/18/2016 09:02:44 6 Functional Limitation Reporting Category -Carrying/Reach ing/Handling completed Staci Jackson, PT [address] [place], [address], [facility] 06/08/2016 13:30:26 6 [address]: PT Evaluation completed Eduardo Judge [facility] 06/08/2016 10:51:44 6 [address]: Therapeutic Exercise completed Staci Jackson, PT [address] [place], [address], [facility] 06/08/2016 13:28:57 Sinus Surgery [place] Sage [place] [facility] 11/14/2016 10:34:10 Cardiac Bypass Surgery CABG completed Sage [place] [facility] 11/14/2016 10:34:26 Other completed Besa [place] - [facility] 11/14/2016 10:34:37 Spine Lumbar Surgery completed Bescb [place] - [facility] 11/14/2016 10:34:45 Imaging Results Imaging Date Name Status [facility]Modified by [facility] Details LastModified Time 05/13/2016 XR, cervical spine completed [facility] [place] ([facility]) [address], [place], [address], 06/03/2016 14:24:10 07/25/2016 MRI, cervical spine completed [email or web address] [employer] [address] [facility] [address], [place], [address], 07/28/2016 09:45:45 Procedure Notes None recorded. Medical Equipment None Reported. Allergies No known drug allergies Medications Name Sig Start Date Stop Date Status Note LastModified by Organization Details LastModified Time atorvastati n 80 mg tablet Take 1 tablet every day by oral route. active Not Available Not Available No t Available doxazosin 1 mg tablet Take 1 tablet every day by oral route. active Not Available Not Available No t Available Medrol (Abraham) 4 mg tablets in a dose pack Take as directed on pack 11/14 completed Not Available Not Available Not Available Celebrex 200 mg capsule Take 1 capsule every day by oral route. active Not Available Not Available No t Available trazodone 100 mg tablet Take 1 tablet twice a day by oral route. active Not Available Not Available No t Available esomeprazol e magnesium 40 mg capsule,del ayed release Take 1 capsule every day by oral route. active Not Available Not Available No t Available metoprolol tartrate 25 mg tablet Take 1 tablet twice a day by oral route. active Not Available Not Available No t Available melatonin active Not Available Not Jenise ilable Not Available Aspir-81 active Not Available Not Avai lable Not Available Voltaren 1 % topical gel Apply 4 gr to affected area QID prn pain 2015 active Not Available Not Available Not Avai lable Vitals Date Recorded Body height Body weight Body mass index (BMI) Provider Name and Address Organization Details Last Updated DateTime 07/18/2016 160.02 cm 83042.97 g 23.9 kg/m2 Chely Moncada [facility] 07/18/2016 08:31:39 Date Recorded Body height Body weight Body mass index (BMI) Provider Name and Address Organization Details Last Updated DateTime 07/27/2016 160.02 cm 11690.79 g 23.6 kg/m2 [facility] 07/27/2016 07:46:44 Date Recorded Body height Body weight Body mass index (BMI) Provider Name and Address Organization Details Last Updated DateTime 11/14/2016 160.02 cm 08972.15 g 24.3 kg/m2 Sage Leal [facility] 11/14/2016 10:25:52 Date Recorded Body height Body weight Body mass index (BMI) Provider Name and Address Organization Details Last Updated DateTime 01/25/2017 160.02 cm 67285.01 g 23 kg/m2 Danelle Adiel [facility] 01/25/2017 16:02:43 Social History Question Answer Notes LastModified by Organizat ion Details LastModified Time Tobacco Smoking Status Never Smoker Sage short [facility] 11/14/2016 10:31:16 Auto Related Injury? No Information not available 06/06/2016 Which Of Your Hands Is Dominant? Right Information not available 06/06/2016 Live Alone Or With Others? With Others [email or web address] Information not available 01/25/2017 Job Status Retired Information no t available 06/06/2016 Marital Status btrail Informatio n not available 11/14/2016 If Injured, Is Litigation Ongoing? No Information not available 06/06/2016 Work Related Injury? No Information not available 06/06/2016 Sex: Unknown Functional Status None recorded. Mental Status None recorded. Family History Relationship Description Onset Age of this Age Resolved Age Notes LastModified by Organization Details LastModified Time Father Heart disease [email or web address] Not available 2016 10:30:33 Father Alzheimer's disease [email or web address] Not available 01/25 16:02:58 Father Malignant neoplastic disease breast [email or web address] Not available 2016 10:31:06 Mother Malignant neoplastic disease throat [email or web address] Not available 2016 10:31:06 Medical History Condition Response High Blood Pressure Y Sleep apnea: CPAP or BIPAP Y Stents (other than cardiac) N Parkinson's Disease N Thyroid problems N Bleeding Disorders N Metal Implants N Depression N Lung problems N Liver problems N Anemia N Prostate Problems N Kidney problems N Heart Stent N Ulcers N Headaches/Migraines N Implanted device N Peripheral Neuropathy N Anxiety Disorder N Chronic infection N Arthritis N No Diseases or Conditions N Diabetes Type I or II N Blood Clot / DVT N HIV / AIDS N Seizures N Stroke/TIA Y Reflux / GERD Y High Cholesterol Y Memory Loss N Dialysis N Blood clot in lung N Osteoporosis N Past Encounters Encounter ID Performer Location Encounter Start Date Encounter Closed Date Diagnosis/Indication Diagnosis SNOMED-CT Code Diagnosis ICD10 Code Diagnosis Note [id number] Monty Bejarano MD [facility] [address] [facility] [place] [address] 06/06/2016 09:15:54 06/06/2016 10:17:41 Neck pain 35604935 M54.2 Cervical spondylosis 387 111840 M47.812 [id number] Staci Jackson, PT [facility] [address] [facility] [address] [facility] [facility] [address] [place] [address] 06/08/2016 10:39:41 06/08/2016 13:31:09 Neck pain 81184525 M54.2 Joint stiffness 81018255 M25.60 Muscle atrophy 81182868 M62.59 Spasm 98956174 R25.2 [id number] Wilner Sosa DO [facility] [address] [place] [address] 07/18/2016 08:17:51 07/18/2016 09:09:15 Neck pain 64609406 M54.2 Degenerati on of cervical intervertebral disc 46865967 M50.30 Severe C4-C7 with collapse [id number] Wilner Garland MD [facility] [address] [place] [address] 07/27/2016 07:30:04 07/27/2016 08:37:07 Spinal stenosis in cervical region 48117515 M48.02 Severe cervical stenosis C2-C4. [id number] Wilner Sosa DO [facility] [address] [place] [address] 11/14/2016 09:30:29 11/14/2016 10:58:22 Stenosis of spinal canal due to intervertebral disc 275992853 M99.59 [id number] Wilner Sosa DO [facility] [address] [place] [address] 01/25/2017 15:47:08 01/25/2017 17:43:16 Thoracic back pain 290872321 M54.6 Health Concerns Section Related Observation LastModified by Organization Detai ls LastModified Time None Recorded Concern Status LastModified by Organization Details LastModified Time None Recorded Advance Directives Directive None Recorded Payers Encounter Date Sequence Insurance Name Policy Number Policy Jeffries Covered Member ID Jeffries Member ID Guarantor Name 06/08/2016 1 [place] Riccardo Pierson [id number] Riccardo Pierson 06/08/2016 2 UNICARE - BASIC PLAN (INDEMNITY) [id number] Riccardo Pierson [id number] Riccardo Pierson 07/18/2016 1 [place] Riccardo Pierson [id number] Riccardo Pierson 07/18/2016 2 UNICARE - BASIC PLAN (INDEMNITY) [id number] Riccardo Pierson [id number] Riccardo Pierson 07/27/2016 1 [place] Riccardo Pierson [id number] Riccardo Pierson 07/27/2016 2 UNICARE - BASIC PLAN (INDEMNITY) [id number] Riccardo Pierson [id number] Riccardo Pierson 11/14/2016 1 [place] Riccardo Pierson [id number] A Riccardo Pierson 11/14/2016 2 UNICARE - BASIC PLAN (INDEMNITY) [id number] Riccardo Pierson [id number] Riccardo Pierson 01/25/2017 1 [place] Riccardo Pierson [id number] A Riccardo Pierson 01/25/2017 2 UNICARE - BASIC PLAN (INDEMNITY) [id number] Riccardo Pierson [id number] Riccardo Pierson Notes Date Note Type Note Provider Name and Address Organization Details Recorded Time 06/08/2016 text/html Rehab C-spine an d T-spine EvalReported bypatient.Location:lef t Quality:constant Severity:pain level 8/10 Onset:gradual Duration:3-4 months Mechanism of Injury:insidious Alleviating Factors:heat; prescription medication (voltaren) Associated Symptoms:no numbness; no tingling; no radiation down arm; no weakness Prior Studies:x ray Work:retired (Nutrition research) Bathingindependently Cutting foodindependently Additional ADL's documentedsee Outcome Survey Staci Jackson, PT [address] [place], [address], [facility] 06/08/2016 13:30:34 07/18/2016 text/html Patient is a 71 year old male being seen in clinic today for continued neck pain and previous diagnosis of cervical sponkylosis. Currently taking Tylenol and Voltraen Gel for pain, which is effective at this time. Pain is made worse by yard work and is eased with use of a heating pad. Patient rates pain as an 8 out of a 10. Improvement is rated as 20% since last office visit. ZAYNAB Shultz [address] [place], [address], [facility] 07/28/2016 22:20:41 07/27/2016 text/html Patient is a 71 year old male being seen in clinic today for follow up MRI results of the cervical spine. Patient rates pain level as a 5 out of a 10. Currently taking celebrex and tylenol for pain, which is reported as not being effective treatment. Pain is made worse with activity and is eased with injections and massage. Patient rates improvement at 80% since last office visit. ZAYNAB Shultz [address] [place], [address], [facility] 07/28/2016 21:27:31 11/14/2016 text/html Patient is a 71 year old male being seen in clinic today for follow up on severe cervical canal stenosis. Patient rates pain level as a 8 out of a 10. Currently taking Tylenol for pain, which is an effective treatment at this time. Pain is described as aching pain that is located in the neck area. Pain is made worse with nothing particular and is eased with heat. ZAYNAB Shultz [address] [place], [address], [facility] 11/18/2016 16:20:33 01/25/2017 text/html Riccardo Pierson returns today for follow up of upper back pain and requests a trigger point injection. The patient rates their pain at 8 out of 10 on the pain scale today. The patient currently takes Tylenol as needed and Celebrex, which are effective in controlling pain. The pain is made worse by it's always there, while diminished by lying supine and a heating pad. RENETTA [place] [facility] 02/01/2017 07:15:57
--- OUTSIDE RECORDS SUMMARY | 2025-02-06 10:10 | XMS_ITS | Clinical Summary ---
Author Organization [facility] Address [address] [place] [address] Care Team Providers Care Wrap Knitting Machine Operator Name Role Phone Unavailable Primary Care Provider [...]
--- OUTSIDE RECORDS SUMMARY | 2025-02-06 10:10 | XMS_ITS | Clinical Summary ---
Author Organization [facility] Address [address] [place] [address] Care Team Providers Care Rn Invasive Name Role Phone Unavailable Primary Care Provider Unavailabl e Social History Tobacco Use Types Packs/Day Years Used Date Smoking Tobacco: Never Assessed Sex and Gender Information Value Date Recorded Sex Assigned at Not on file Gender Identity Not on file Sexual Orientation Not on file Plan of Treatment Not on file
== END 2025-02-06 09:51 | disposition home or self-care (01) ==
LOC: HO.HCS 09:21
PROVIDERS: PCP Internal Medicine; Visit Provider Internal Medicine Cardiovascular Disease
DX: I25.10 Atherosclerotic heart disease of native coronary artery without angina pectoris (principal); I35.0 Nonrheumatic aortic (valve) stenosis
CPT/HCPCS: 93010; 99214; G2211

== ENCOUNTER → 2025-02-06 09:20 | Outpatient (BNVA) | payer MEDICARE, OTHER, SELFPAY | PROVIDERS: PCP Internal Medicine; Visit Provider Internal Medicine Cardiovascular Disease | DX: I25.10 Atherosclerotic heart disease of native coronary artery without angina pectoris (principal); I35.0 Nonrheumatic aortic (valve) stenosis; R00.1 Bradycardia, unspecified; I45.4 Nonspecific intraventricular block; R94.31 Abnormal electrocardiogram [ECG] [EKG] | CPT/HCPCS: 93005; 99212 ==

== ENCOUNTER 2025-04-08 07:45 | Outpatient (REF) | payer MEDICARE, OTHER, SELFPAY ==
--- OUTSIDE RECORDS SUMMARY | 2024-05-10 08:40 | XMS_ITS ---
Author Organization [facility] Address [address] [place] [id number] Care Team Providers Care Motor Carrier Inspector Name Role Phone Frederick MUNGUIA, Luciano Primary Care Provider Jameel Martin Jr REASON FOR VISIT HEME POSITIVE STOOL, ACID REFLUX Problems Problem Type SNOMED Code ICD Code Onset Dates Problem Status W/U Status Risk Notes Problem Gastro-esophagea l reflux disease without esophagitis (006292069) Gastro-esophage al reflux disease without esophagitis (K21.9) Active confirmed Encounters Encounter Location Date Provider Diagnosis [facility] Outpatient [address] [place] [phone] 05/10/2024 Jameel Reyes Jr Change in bowel [...] Notes * PASTORA CORNEJODOB:1944 (80 yo M)Acc No.[id number]:05/10/2024 EGD and COL/MAC Patient: Katy PASTORA BURNETT Provider: Bebo Reyes MD :1945 A ge:79 Y S ex:Male Date:05/10/2024 Address: [address] [place], [id number] Pcp:Luciano Mack MD Subjective: * Chief Complaints: [...] COLONOSCOPY, 0529F INTRVL 3+YRS [place]NSC[place] DOCD, [address] EGD BALLOON DIL ESOPH30 MM/> * * The named appointment provid er may or may not be the originator of this progress note, and it is not deemed complete until electronically signed by the appointment provider. Sign off status: Pending * Provider: Bebo Reyes MD Date: 0 05/10/2024 Generated for Sera horner/Jessie/Olgaitting on: 0 04/08/2025 11:52 AM EDT
--- OUTSIDE RECORDS SUMMARY | 2025-04-08 03:45 | XMS_ITS ---
Author Organization Luciano Mack MD Address [address] [place] [id number] Care Team Providers Care Cotton Chopper Name Role Phone Luciano Mack Primary Care Provider [phone] Results Component Value Reference Range Notes Complete Blood Count Auto Di ff (Not yet reviewed by provider) Interpretation: Performing Lab:[facility], [address] [place] [phone] Notes/Report: White Blood Count 6.8 4.8-10.8 X10*3/uL Red Blood Count 3.99 4.60-5.80 X10*6/uL Hemoglobin 12.1 14.0-18.0 g/dl Hematocrit 38.2 42.0-52.0 % Mean Corpuscular Volume 95.7 80.0-98.0 fL Mean Corpuscular Hemoglobin 30.3 27.0-33.0 pg Mean Corpuscular HGB Conc 31.7 31.0-36.0 g/dl Red Cell Distribution Width 13.4 11.0-16.0 % Platelet Count 313 160-400 X10*3/uL Mean Platelet Volume 9.9 9.4-12.4 fL Neutrophils Percent Auto 58.6 45-73 % Imm Gran Pct Auto 0.1 0.0-0.4 % Lymphocytes Percent Auto 31.3 20-40 % Monocytes Percent Auto 6.6 2-11 % Eosinophils Percent Auto 2.7 0-4 % Basophils Percent Auto 0.7 0-2 % NRBC Pct Auto 0.0 0.0-0.2 /100WBC Neutrophils Absolute Auto 4.0 2.0-8.3 x10*3/u L Imm Gran Abs Auto 0.01 0.00-0.03 X10*3/uL Lymphocytes Absolute Auto 2.1 1.2-4.9 X10*3/u L Monocytes Absolute Auto 0.5 0.1-1.2 X10*3/uL Eosinophils Absolute Auto 0.2 0.0-0.4 X10*3/u L Basophils Absolute Auto 0.1 0.0-0.2 X10*3/uL NRBC Abs Auto 0.000 0.0-0.012 X10*3/uL Comprehensive [place]. Panel Fa st (Not yet reviewed by provider) Interpretation: Performing Lab:[facility], [address] [place] [phone] Notes/Report: Sodium 142 135-145 mmol/L Potassium 4.6 3.3-5.1 mmol/L Chloride 105 96-108 mmol/L Carbon Dioxide 31 22-29 mmol/L Anion Gap 11 12-20 Blood Urea Nitrogen 27 9-16 mg/dL Creatinine 1.05 0.5-1.4 mg/dL Estimated Glomerular Filt Rate > 60 Chronic Kidney Disease: Estimated GFR < 60 mL/min/1.73m2 Severe Kidney Disease: Estimated GFR < 15 mL/min/1.73m2 Glucose Fasting 86 60-99 mg/dL Calcium 9.2 8.4-10.2 mg/dL Bilirubin Total 0.5 0.0-1.0 mg/dL Aspartate Amino Transferase 34 5-37 U/L Alanine Aminotransferase 24 0-40 U/L Total Protein 6.7 6.5-8.0 g/dL Albumin Level 4.5 3.5-5.0 g/dL Alkaline Phosphatase 73 39-117 U/L Lipid Panel (Not yet reviewe d by provider) Interpretation: Performing Lab:[address] [phone] Notes/Report: Triglycerides 123 <150 mg/dL Desirable Triglyceride: less than 150 mg/dL Borderline High Triglyceride 150-199 mg/dL High Triglyceride: 200-499 mg/dL Very High Triglyceride: greater than or equal to 5OO mg/dL Cholesterol 125 <200 mg/dL Desirable Cholesterol: less than 200 mg/dL Borderline High Cholesterol: 200-239 mg/dL High Cholesterol: greater than 239 mg/dL LDL Cholesterol Calculated 64 <100 mg/dL Desirable LDL: less than 100 mg/dL Near Optimal/Above Optimal LDL: 110-129 mg/dL Borderline High LDL: 130-159 mg/dL High LDL: 160-189 mg/dL Very High LDL: greater than or equal to 190 mg/dL HDL Cholesterol 37 >40 mg/dL Desirable HDL: greater than 40 mg/dL Note: This HDL assay may give artificially low results in patients with liver disease. UA ClnCatch+Micro w/rflx Cul t (Not yet reviewed by provider) Interpretation: Performing Lab:[address] [phone] Notes/Report: Urine, Clean Catch Color Urine Yellow Appearance Urine Clear PH 8.0 5.0-9.0 Glucose Urine UA Negative Negative mg/dL Urine Blood Negative Negative Specific [place] - Urine 1.020 1.005-1.025 Urine Protein Negative Neg-Trace mg/dL Urine Ketones Negative Negative mg/dL Nitrite Urine Negative Negative Leukocyte Esterase Urine Trace Negative RBC Urine 0-2 0-2 /HPF WBC Urine 0-5 0-5 /HPF Squamous Epithelial Cell Urine 0-2 0-2 /HPF Bacteria Urine None Seen None Seen Hyaline Casts Urine 0-2 0-2 /LPF REASON FOR VISIT FASTING LABS Encounters Encounter Location Date Provider Diagnosis Luciano Mack MD [address] [place] [address] Drive [address] [place], [place] [id number] 04/08/2025 Luciano Mack Essential hypertensi on I10 ; Pure hypercholesterolemia E78.00 ; Prostatism N40.0 and Testosterone deficiency E29.1 Assessments Encounter Date Diagnosis (ICD Code) Assessment Notes Treatment Notes Treatment Clinical Notes Section Notes 04/08/2025 Essential hypertensi on (ICD-10 - I10) 04/08/2025 Pure hypercholesterolemia (ICD-10 - E78.00) 04/08/2025 Prostatism (ICD-10 - N40.0) 04/08/2025 Testosterone deficie ncy (ICD-10 - E29.1) Plan Of Treatment Pending Test Test Name Order Date Complete Blood Count Auto Diff Comprehensive [place]. Panel Fast Lipid Panel 04/08/2025 PSA,Total (Free>4and<10) 04/08/2025 Testosterone, Free/Total 04/08/2025 UA ClnCatch+Micro w/rflx Cult 04/08/2025 Next Appt Details Provider Name:Luciano Gonzalez ier, 04/15/2025 01:30:00 PM, [address], [address], [place], [place], [phone], Progress Notes * PASTORA CORNEJODOB:1944 (80 yo M)Acc No.[id number]:04/08/2025 Progress Note Patient: PASTORA HOGAN Jori Provider: Germaine Mack MD :1945 A ge:80 Y S ex:Male Date:04/08/2025 Address:[address] [place] [id number] Subjective: * Chief Complaints: * 1 . FASTING LABS. * Medical History: Objective: * Vitals: Assessment: * Assessment: 1. E ssential hypertension - I10 (Primary) 2 . P ure hypercholesterolemia - E78.00 3 . P rostatism - N40.0 4 . T estosterone deficiency - E29.1 Plan: * Treatment: 2. P ure hypercholesterolemia L AB: Complete Blood Count Auto Diff (Collection Date & Time - 04/08/2025 07:45 AM) L AB: Comprehensive [place]. Panel Fast (Collection Date & Time - 04/08/2025 07:45 AM) L AB: Lipid Panel (Collection Date & Time - 04/08/2025 07:45 AM) L AB: PSA,Total (Free>4and<10) L AB: Testosterone, Free/Total L AB: UA ClnCatch+Micro w/rflx Cult (Collection Date & Time - 04/08/2025 07:45 AM) 3. P rostatism L AB: Complete Blood Count Auto Diff (Collection Date & Time - 04/08/2025 07:45 AM) L AB: Comprehensive [place]. Panel Fast (Collection Date & Time - 04/08/2025 07:45 AM) L AB: Lipid Panel (Collection Date & Time - 04/08/2025 07:45 AM) L AB: PSA,Total (Free>4and<10) L AB: Testosterone, Free/Total L AB: UA ClnCatch+Micro w/rflx Cult (Collection Date & Time - 04/08/2025 07:45 AM) 4. T estosterone deficiency L AB: Complete Blood Count Auto Diff (Collection Date & Time - 04/08/2025 07:45 AM) L AB: Comprehensive [place]. Panel Fast (Collection Date & Time - 04/08/2025 07:45 AM) L AB: Lipid Panel (Collection Date & Time - 04/08/2025 07:45 AM) L AB: PSA,Total (Free>4and<10) L AB: Testosterone, Free/Total L AB: UA ClnCatch+Micro w/rflx Cult (Collection Date & Time - 04/08/2025 07:45 AM) * Procedure Codes: 3 6415 VENIPUNCT, ROUTINE* * * The named appointment provid er may or may not be the originator of this progress note, and it is not deemed complete until electronically signed by the appointment provider. Sign off status: Pending * Provider: Germaine Mack MD Date: 04/08/2025 Generated for Printi ng/Faxing/eTransmitting on: 04/08/2025 11:52 AM EDT
[2025-04-08 10:45] LABS: MANUAL DIFF FLAG NO
[2025-04-08 10:55] LABS: Appearance Urine Clear; Glucose Urine UA Negative (Negative); PH 8.0 (5.0-9.0); Specific Gravity - Urine 1.020 (1.005-1.025); UMIC TRIGGER UACC YES
[2025-04-08 10:58] LABS: Hematocrit 38.2 % (42.0-52.0); Hemoglobin 12.1 g/dl (14.0-18.0); Imm Gran Abs Auto 0.01 X10*3/uL (0.00-0.03); Imm Gran Pct Auto 0.1 % (0.0-0.4); Lymphocytes Absolute Auto 2.1 X10*3/uL (1.2-4.9); Mean Corpuscular HGB Conc 31.7 g/dl (31.0-36.0); Mean Corpuscular Hemoglobin 30.3 pg (27.0-33.0); Mean Corpuscular Volume 95.7 fL (80.0-98.0); NRBC Abs Auto 0.000 X10*3/uL (0.0-0.012); NRBC Pct Auto 0.0 /100WBC (0.0-0.2); Platelet Count 313 X10*3/uL (160-400); Red Blood Count 3.99 X10*6/uL (4.60-5.80); White Blood Count 6.8 X10*3/uL (4.8-10.8)
[2025-04-08 11:41] LABS: Alanine Aminotransferase 24 U/L (0-40); Albumin Level 4.5 g/dL (3.5-5.0); Alkaline Phosphatase 73 U/L (39-117); Anion Gap 11 (12-20); Aspartate Amino Transferase 34 U/L (5-37); Blood Urea Nitrogen 27 mg/dL (9-16); Calcium 9.2 mg/dL (8.4-10.2); Carbon Dioxide 31 mmol/L (22-29); Chloride 105 mmol/L (96-108); Cholesterol 125 mg/dL (<200); Estimated Glomerular Filt Rate > 60; HDL Cholesterol 37 mg/dL (>40); Potassium 4.6 mmol/L (3.3-5.1); Sodium 142 mmol/L (135-145); Total Protein 6.7 g/dL (6.5-8.0); Triglycerides 123 mg/dL (<150)
--- OUTSIDE RECORDS SUMMARY | 2025-04-08 11:52 | XMS_ITS | Clinical Summary ---
Author Organization [facility] Address [address] [place] [address] Care Team Providers Care Soft Sugar Cutter Name Role Phone Unavailable Primary Care Provider Unavailabl e Social History Tobacco Use Types Packs/Day Years Used Date Smoking Tobacco: Never Assessed Sex and Gender Information Value Date Recorded Sex Assigned at Not on file Gender Identity Not on file Sexual Orientation Not on file Plan of Treatment Not on file
--- OUTSIDE RECORDS SUMMARY | 2025-04-08 11:52 | XMS_ITS | Clinical Summary ---
Author Organization [facility] Address [address] [place] [address] Care Team Providers Care Security And Compliance Project Manager Name Role Phone Unavailable Primary Care Provider [...]
--- OUTSIDE RECORDS SUMMARY | 2025-04-08 11:52 | XMS_ITS | Data Portability ---
Author Organization [place] - [facility], [facility] Address [address] [place] [address] Care Team Providers Care Assistant Public Defender Name Role Phone JOCE BEJARANO Referring Provider [phone] DANIEL HAILE Referring Provider Assessment Encounter Date Assessment Date Assessment LastModified by Organization Details LastModified Time 06/08/2016 06/08/2016 [facility] Plan of Care Start [...] IMPAIRED MOTOR FUNCTION/BALANCE 6. IMPAIRED POSTURE Anticipated terminologist goals to be achieved by: Jul 19, [...] weeks Plan of Care Performed by: Staci Jackson, PT [email or web address] Not available 06/08/2016 13:28:57 07/18/2016 07/18/2016 1. Severe DDD C4-C7 with collapse [email or web address] Not available 07/18/2016 08:59:31 07/27/2016 07/27/2016 1. Severe cervical stenosis C2-C4. 2. Improved with meds. Not available 07/27/2016 08:39:13 11/14/2016 11/14/2016 1. Severe Cervical Canal Stenosis 2. Pain right scapular boarder [email or web address] Not available 11/14/2016 10:56:26 01/25/2017 01/25/2017 1. [...] injection, trigger point (PROC) 2016 017 [email or web address] [facility], [address] [place], [address], 7 17:00:36 injection, trigger point (PROC) 2016 017 [email or web address] Not available 7 13:10:44 Surgeries None recorded. Imaging MRI, cervical spine, w/o contrast 2015 016 Not available 6 04:01:42 Medication Orders Medrol (Abraham) 4 mg tablets in a dose pack 2015 016 [email or web address] [id number], [address], [place], [address], 7 10:27:39 Patient TargetsNo targets recorded. Patient Instructions Encounter Date Encounter Id Patient Instructions Last Modified By Organization Details Last Modified Time 06/08/2016 [id number] HEP - see nguyen villalba copies, progress as hugo [email or web address] Not available 06/08/2016 13:28:57 07/27/2016 [id number] 1. Long discussion regarding options and risks and benefits of surgery. 2. Pt. will notify office if worse to discuss surgery; will refer to Dr. Sosa or Dr. Long. Not available 07/27/2016 08:44:58 11/14/2016 [id number] CSMO Cortisone Injection-Handout [email or web address] Not available 11/14/2016 13:10:44 1. Discussed surgical options - mariam monitor [email or web address] Not available 11/14/2016 10:57:35 01/25/2017 [id number] CSMO Cortisone Injection-Handout [email or web address] Not available 01/27/2017 11:31:32 Thoracic trigger point injection today. Attempt to avoid surgery. Encounter transcribed by: Yvette Crandall Not available 01/31/2017 14:48:19 Reason for Referral None Reported. Results Created Date Observation Date Name Description Value Unit Range Abnormal Flag Note LastModifiedBy Organization Detail LastModifiedTime 05/27/20 16 05/13/2016 XR, cervi leslie spine No observ ation record ed. [facility] [place] (Imaging) [address], [place], [address], 06/03/2016 14:24:10 07/25/20 16 07/25/2016 MRI, cervi leslie spine [facility] [address] [place] [address] Cervic al Spine HISTOR Y: Neck pain [...] is well is erosio n along the outpatient facility physical therapist ior margin of the odonto id with thicke nelida along the transv erse ligame nt. Bowing of the tector ial membra ne is seen but the forame n magnum is widely patent . C2-3: Small right centra l disc osteop hyte comple x. Centra l canal is patent . No signif icant forami nal stenos is. C3-4: Modera te and mostly outpatient facility physical therapist ior centra l disc osteop hyte comple [...] left at C7-T1. Parana ayesha sinus diseas e.Palouse ion along the outpatient facility physical therapist ior odonto id and marked narrow ing of the atlant oaxial articu lation with soft tissue possib ly repres enting pannus . Query inflam matory arthro jack such as rheuma toid or possib ly metabo lic arthro jack such as CPPD.E lectro harlan tom signed by: Asim Castellanos M.D. (Jul 25, 2016 12:36: [address] CT [email or web address] [facility] [address], [place], [address], 07/28/2016 09:45:45 Result Notes None recorded. Problems Name Problem SNOMED Code Status Onset Date Resolution Date Notes Provider Name and Address Organization Details Recorded Time Neck pain 26937350 Active Staci Jackson, PT [address] [place], [address], [facility] 6 13:28:57 Cervical spondylosis 766677163 Active Aline short [facility] 6 09:49:29 Joint stiffness [id number] Parker Jackson, PT [address] [place], [address], [facility] 6 13:28:57 Muscle atrophy [id number] Parker Jackson, PT [address] [place], [address], [facility] 6 13:28:57 Spasm 08556509 Active Staci Jackson, PT [address] [place], [address], [facility] 6 13:28:57 Problem Notes None recorded. Procedures Surgical History Date Name Laterality Status Provider Name and Address Organization Details Recorded Time 7 INJ Trigger point 1-2 muscles Right completed Charmaine Flores [facility] 01/25/2017 16:59:57 7 INJ Trigger point 1-2 muscles Right completed Iza Lee [facility] 11/14/2016 10:56:56 6 INJ Trigger point 1-2 muscles Right completed Iza Lee [facility] 07/18/2016 09:02:44 6 Functional Limitation Reporting Category -Carrying/Reach ing/Handling completed Staci Jackson, PT [address] [place], [address], [facility] 06/08/2016 13:30:26 6 [address]: PT Evaluation completed Eduardo Judge [facility] 06/08/2016 10:51:44 6 [address]229: Therapeutic Exercise completed Staci Jackson, PT [address] [place], [address], [facility] 06/08/2016 13:28:57 Sinus Surgery completed Sage Leal [facility] 11/14/2016 10:34:10 Cardiac Bypass Surgery CABG completed Sage Leal [facility] 11/14/2016 10:34:26 Other completed Bescb Leal [facility] 11/14/2016 10:34:37 [facility]ine [facility] 11/14/2016 10:34:45 Imaging Results None recorded. Procedure Notes None recorded. Medical Equipment None [...] Details Last Updated DateTime 11/14/2016 160.02 cm 31757.15 g 24.3 kg/m2 Sage Leal [facility] 11/14/2016 10:25:52 Date Recorded Body height Body weight Body mass index (BMI) Provider Name and Address Organization Details Last Updated DateTime 01/25/2017 160.02 cm 32477.01 g 23 kg/m2 Danelle Cuhn [facility] 01/25/2017 16:02:43 Date Recorded Body height Body weight Body mass index (BMI) Provider Name and Address Organization Details Last Updated DateTime 07/18/2016 160.02 cm 67796.97 g 23.9 kg/m2 Chely Moncada [facility] 07/18/2016 08:31:39 Date Recorded Body height Body weight Body mass index (BMI) Provider Name and Address Organization Details Last Updated DateTime 07/27/2016 160.02 cm 19662.79 g 23.6 kg/m2 [facility] 07/27/2016 07:46:44 Social History Question Answer Notes LastModified by Organizat ion Details LastModified Time Tobacco Smoking Status Never Smoker RENETTA Pacheco [facility] 11/14/2016 10:31:16 [...] SNOMED-CT Code Diagnosis ICD10 Code Diagnosis Note [id number] Monty Bejarano MD [facility] [address] [place] [address],[facility] [place] [address] 06/06/2016 09:15:54 06/06/2016 10:17:41 Neck pain 84297119 M54.2 Cervical spondylosis 387 189773 M47.812 [id number] Staci Jackson, PT [facility] [address] [facility] [place] [address] 06/08/2016 10:39:41 06/08/2016 13:31:09 Neck pain 32647930 M54.2 Joint stiffness 74546074 M25.60 Muscle atrophy 71178903 M62.59 Spasm 44876078 R25.2 [id number] Wilner Sosa DO [facility] [address] [place] [address] 07/18/2016 08:17:51 07/18/2016 09:09:15 Neck pain 91785300 M54.2 Degenerati on of cervical intervertebral disc 98969990 M50.30 Severe C4-C7 with collapse [id number] Wilner Garland MD [facility] [address] [place] [address] 07/27/2016 07:30:04 07/27/2016 08:37:07 Spinal stenosis in cervical region 44230512 M48.02 Severe cervical stenosis C2-C4. [id number] Wilner Sosa DO [facility] [address] [place] [address] 11/14/2016 09:30:29 11/14/2016 10:58:22 Stenosis of spinal canal due to intervertebral disc 240982883 M99.[id number] [facility] [address] [place] [address] 01/25/2017 15:47:08 01/25/2017 17:43:16 Thoracic back pain 038404935 M54.6 Health Concerns Section Related Observation LastModified by Organization Detai ls LastModified Time None Recorded Concern Status LastModified by Organization Details LastModified Time None Recorded Advance Directives Directive None Recorded Payers Insurance Date Sequence Insurance Name Policy Number Policy Jeffries Covered Member ID Jeffries Member ID Guarantor Name 01/24/2017 2 [employer]ICARE - BASIC PLAN (INDEMNITY) [id number] Riccardo Pierson [id number] Riccardo Ruizlosi 01/24/2017 [facility] (MEDICARE DME REGION C) NONE Riccardo Pierson [id number] A Riccardo Pierson 01/25/2017 1 [place] Riccardo Pierson [id number] Taniya Pierson Notes Date Note Type Note Provider Name and Address Organization Details Recorded Time 06/08/2016 text/html Rehab C-spine an d T-spine EvalReported bypatient.Location:lef t Quality:constant Severity:pain level 05/18 Onset:gradual Duration:3-4 months Mechanism of Injury:insidious Alleviating Factors:heat; prescription medication (voltaren) Associated Symptoms:no numbness; no tingling; no radiation down arm; no weakness Prior Studies:x ray Work:retired (Nutrition research) Bathingindependently Cutting foodindependently Additional ADL's documentedsee Outcome Survey Staci Jackson, PT [address] [place], [address], [facility] 06/08/2016 13:30:34 [...] 20% since last office visit. ZAYNAB Shultz [address] [place], [address], [facility] 07/28/2016 22:20:41 [...] 80% since last office visit. ZAYNAB Shultz [address] [place], [address], [facility] 07/28/2016 21:27:31 [...] is eased with heat. ZAYNAB Shultz [address] [place], [address], [facility] 11/18/2016 16:20:33 [...] by lying supine and a heating pad. Wilner short, [place] - [place] [facility] 02/01/2017 07:15:57
[2025-04-08 12:02] LABS: PSA,Total (Free>4and<10) 0.76 ng/mL (0.00-4.00)
[2025-04-14 18:28] LABS: Testosterone, Free 49.9 pg/mL (30.0-135.0)
== END 2025-04-08 07:46 | disposition home or self-care (01) ==
LOC: HO.LNP 07:45
PROVIDERS: Visit Provider Internal Medicine
DX: I10 Essential (primary) hypertension (principal); E78.00 Pure hypercholesterolemia, unspecified; N40.0 Benign prostatic hyperplasia without lower urinary tract symptoms; E29.1 Testicular hypofunction
CPT/HCPCS: 80053; 80061; 81001; 84153; 84402; 84403; 85025

== ENCOUNTER 2025-04-21 10:49 | Outpatient (REF) | payer MEDICARE, OTHER, SELFPAY ==
--- OUTSIDE RECORDS SUMMARY | 2024-05-10 08:40 | XMS_ITS ---
Author Organization [facility] Address [address] [place] [id number] Care Team Providers Care General Maintenance Mechanic Name Role Phone Frederick MUNGUIA, Luciano Primary Care Provider Jameel Martin Jr REASON FOR VISIT HEME POSITIVE STOOL, ACID REFLUX Problems Problem Type SNOMED Code ICD Code Onset Dates Problem Status W/U Status Risk Notes Problem Gastro-esophagea l reflux disease without esophagitis (887379410) Gastro-esophage al reflux disease without esophagitis (K21.9) Active confirmed Encounters Encounter Location Date Provider Diagnosis [facility] Outpatient [address] [place] [phone] 05/10/2024 Jameel Reyes Jr Change in bowel movement R19.8 ; Heme + stool R19.5 and Gastro-esophageal reflux disease without esophagitis K21.9 Assessments Encounter Date Diagnosis (ICD Code) Assessment Notes Treatment Notes Treatment Clinical Notes Section Notes 05/10/2024 Change in bowel movement (ICD-10 - R19.8) 05/10/2024 Heme + stool (ICD-10 - R19.5) 05/10/2024 Gastro-esophagea l reflux disease without esophagitis (ICD-10 - K21.9) Plan Of Treatment No Information Progress Notes * PASTORA CORNEJODOB:1944 (80 yo M)Acc No.[id number]:05/10/2024 EGD and COL/MAC Patient: Katy PASTORA BURNETT Provider: Bebo Reyes MD :1945 A ge:79 Y S ex:Male Date:05/10/2024 Address:[address] [place], [place] [address] [id number] Pcp:Luciano Mack MD Subjective: * Chief Complaints: * 1 . HEME POSITIVE STOOL, ACID REFLUX. * Medical History: Objective: * Vitals: Assessment: * Assessment: 1. C hange in bowel movement - R19.8 (Primary) 2 . H sybil + stool - R19.5? 3. G grant-esophageal reflux disease without esophagitis - K21.9 Plan: * Treatment: * Procedure Codes: 4 5378 DIAGNOSTIC COLONOSCOPY, 0529F INTRVL 3+YRS PTS CLNSCP DOCD, [address] EGD BALLOON DIL ESOPH30 MM/> * * The named appointment provid er may or may not be the originator of this progress note, and it is not deemed complete until electronically signed by the appointment provider. Sign off status: Pending * Provider: Bebo Reyes MD Date: 0 05/10/2024 Generated for Sera horner/Jessie/Olgaitting on: 0 04/21/2025 11:45 AM EDT
--- OUTSIDE RECORDS SUMMARY | 2025-04-15 09:30 | XMS_ITS ---
Author Organization Luciano Mack MD Address [address] [place] [phone] Care Team Providers Care Cell Changer Name Role Phone Frederick Luciano Primary Care Provider Allergies No Known Allergies Reason For Referral Reason memory loss Diagnosis 1 Memory loss (R41.3) Referral Organization Luciano Mack MD Referring Provider First Name Luciano Referring Provider Last Name Frederick Referring Provider Speciality Internal M edicine Referred Provider [facility] Referred Provider Specialty Unknown General Notes Dana Santizo 0 04/15/2025 02:38:43 PM >referral info faxed, Dana Santizo 04/18/2025 01:51:24 PM >per [facility] memory clinic patient will need to have lab work done for a TSH ad B12, appt for this booked in our office on 04-21-2025, Dana Santizo 04/21/2025 07:19:18 AM > labs drawn today Referral Priority Routine REASON FOR VISIT review labs Medications Medication SIG (Take, Route, Frequency, Duration) Notes Start Date End Date Status Diclofenac Potassium 50 MG TAKE 1 TABLET BY MOUTH TWICE A DAY NEEDED for 30 Active Montelukast Sodium 10 MG TAKE 1 TABLET B Y MOUTH EVERY DAY IN THE EVENING FOR 90 DAYS Orally QOD Active acetaZOLAMIDE 125 MG 1 tablet Orally Twi ce a day for 14 days 08/21/2023 Not-Taking Aspirin 81 MG 1 tablet Orally Once a day Active Xiidra 5 % 1 drop into affected eye Ophthalmic Twice a day Active Tylenol Extra Strength 500 MG 1 or 2 tablets as needed Orally every 6 hrs Active Systane Preservative Free 0.4-0.3 % Ophthalmic Active Sildenafil Citrate 100 MG 1/2 tablet as needed Orally Once a day for 60 Active Omeprazole 40 MG 1 capsule 1/2 to 1 hour before morning meal Orally Once a day 04/15/2025 Active amLODIPine Besylate 2.5 MG 1 tablet Oral ly Once a day Active Valsartan 80 MG TAKE 1 TABLET BY DOMINGUEZ TH EVERY DAY Active Finasteride 5 MG 1 tablet Orally Once a day for 30 days 04/15/2025 Active Doxazosin Mesylate 1 MG 1 tablet Orally Once a day Not-Taking Atorvastatin Calcium 80 MG TAKE 1 TABLET BY MOUTH EVERY DAY Active Claritin-D 24 Hour 10-240 MG 1 tablet as needed Orally Once a day Not-Taking Social History Tobacco Use: Social History Observation [...] Problem Status W/U Status Risk Notes Problem Memory loss ([id number]) Memory loss (R41.3) Active confirmed Vital Signs Blood pressure systolic 122 mm Hg 04/15/20 25 Blood pressure diastolic 60 mm Hg 025 Height 61.50 in 04/15/2025 Weight 132 lbs 04/15/2025 BMI 24.53 kg/m2 04/15/2025 weight is up 4 pounds since 01-06-25 Encounters Encounter Location Date Provider Diagnosis Luciano Mack MD [address] [place] [address] Drive [address] [place], [place] [phone] 04/15/2025 Luciano Mack Prostatism N40.0 ; P ure hypercholesterolemia E78.0 ; Gastroesophageal reflux disease without esophagitis K21.9 ; Memory loss R41.3 ; Essential hypertension I10 ; Colon cancer screening Z12.11 and Depression screening Z13.31 Assessments Encounter Date Diagnosis (ICD Code) Assessment Notes Treatment Notes Treatment Clinical Notes Section Notes 04/15/2025 Prostatism (ICD-10 - N40.0) will try finasteride, patient/caregive r verbalized understanding of of medication and directions for use, will continue to monitor 04/15/2025 Pure hypercholesterolemia (ICD-10 - E78.0) doing well, will continue current regiment 04/15/2025 Gastroesophageal ref lux disease without esophagitis (ICD-10 - K21.9) taking omeprazole, will continue current regiment 04/15/2025 Memory loss (ICD-10 - R41.3) referral to [facility] memory unit 04/15/2025 Essential hypertensi on (ICD-10 - I10) stab;e, will continue current regiment 04/15/2025 Colon cancer screeni ng (ICD-10 - Z12.11) guaiac negative 04/15/2025 Depression screening (ICD-10 - Z13.31) negative screen Plan Of Treatment Medication Medication Name Sig Start Date Stop Date Notes Omeprazole 40 MG 1 capsule 1/2 to 1 h our before morning meal Orally Once a day 04/15/2025 amLODIPine Besylate 2.5 MG 1 tablet Orally Once a day Valsartan 80 MG TAKE 1 TABLET BY DOMINGUEZ TH EVERY DAY Finasteride 5 MG 1 tablet Orally Once a day for 30 days 04/15/2025 Atorvastatin Calcium 80 MG TAKE 1 TABLET BY MOUTH EVERY DAY Treatment Notes Assessment Notes Prostatism will try finasteride , patient/caregiver verbalized understanding of of medication and directions for use, will continue to monitor Pure hypercholesterolemia doing well, wi ll continue current regiment Gastroesophageal reflux dise ase without esophagitis taking omeprazole, will continue current regiment Memory loss referral to [facility] or[facility] unit Essential hypertension stab;e, will cont inue current regiment Colon cancer screening guaiac negative Depression screening negative screen Referrals Referral Date Details 04/15/2025 04/15/2025, memory l oss, MEMORY [facility] Next Appt Details Provider Name:Luciano jorge, 10/14/2025 07:15:00 AM, [address] [place] [address], [address] [place] [address], [phone], Provider Name:Luciano jorge, 10/21/2025 02:00:00 PM, [address] [place] [address], [address] [place] [address], [phone], Provider Name:Luciano jorge, 04/09/2026 07:00:00 AM, [address] [place] [address], [address] [place] [address], [phone], Provider Name:Luciano jorge, 04/17/2026 01:30:00 PM, [address] [place] [address], [address] [place] [address], [phone], Progress Notes * PASTORA CORNEJODOB:1944 (80 yo M)Acc No.[id number]:04/15/2025 Patient: PASTORA HOGAN Provider: Germaine Mack MD :1945 A ge:80 Y S ex:Male Date:04/15/2025 Address:[address] [place] [address] Nydia COPELAND [id number] Subjective: * Chief Complaints: * R eview labs * HPI: D epression Screening: PHQ-9 L ittle interest or pleasure in doing things N ot at all, F eeling down, depressed, or hopeless N ot at all, T rouble falling or staying asleep, or sleeping too much N ot at all, F eeling tired or having little energy N ot at all, P oor appetite or overeating N ot at all, F eeling bad about yourself or that you are a failure, or have let yourself or your family down N ot at all, T rouble concentrating on things, such as reading the newspaper or watching television N ot at all, M oving or speaking so slowly that other people could have noticed; or the opposite, being so fidgety or restless that you have been moving around a lot more than usual N ot at all, T houghts that you would be better off or of hurting yourself in some way N ot at all, T otal Score 0 . I nterpretation and Intervention D epression Screening Findings N egative, F ollow-Up for Depression : review of PHQ-9 found negative result, no follow-up needed. C ommunication Needs: Communication Needs D oes the patient have a hearing impairment Y es, I f yes, what is the hearing impairment? H liset of hearing, Hearing Aids, D oes the patient have a vision impairment? Y es, I f yes, what is the vision impairment? G lasses, D oes the patient have a cognition impairment? N o. F all Risk: History H ave you had any falls with injury in the past year? N o, H ave you had two or more falls in the past year? N o. S DONTA Questions: SDOH Questions I n the past year have you been worried about losing housing? N o, I n the past year have you or any family members you live with been unable to get any of the following when it was really needed? Check all that apply: N one. S ymptom(s): patient is a 80 yo male here for visit with review of recent labs and follow up of chronic issues h ere for yearly evaluation. nocturia and frequent urination day and night. * ROS: G eneral/Constitutional: Change in appetite d enies. C hills d enies. F ever d enies. O phthalmologic: Blurred vision d enies. D ischarge d enies. P ain d enies. E NT: Decreased hearing d enies. S ore throat d enies.?Swollen glands d enies. E ndocrine: Cold intolerance d enies. E xcessive thirst d enies. H eat intolerance d enies. W eight loss d enies. R espiratory: Cough d enies. S hortness of breath at rest d enies. S hortness of breath with exertion d enies. W heezing d enies. C ardiovascular: Chest pain at rest d enies. C hest pain with exertion?denies. I rregular heartbeat d enies. S hortness of breath d enies. ? G astrointestinal: Abdominal pain d enies. C hange in bowel habits d enies. D iarrhea d enies. N ausea d enies. R ectal bleeding d enies. V omiting d enies . G enitourinary: Blood in urine d enies. D ifficulty urinating d enies. F requent urination d enies. M usculoskeletal: Painful joints d enies. W eakness d enies. ? S kin: Dry skin d enies. I tching d enies. D enies?Mole(s), changes in moles, new moles or any lesions of concern. D enies P hotosensitivity. R arianne d enies. N eurologic: Dizziness d enies. F ainting d enies. H eadache?denies. * Medical History: * Surgical History: * Hospitalization/Major Diagno stic Procedure: * Family History: F ather: 76 yrs, diagnosed with Alzheimer disease, Cancer. M other: 78 yrs, diagnosed with Cancer. 1 sister(s) . 2 son(s) , 1 daughter(s) . . Father- breast cancer Mother-throat cancer, No pertinent family medical history, Denies mental health/substance abuse family history, Denies mental health/substance abuse family history, No pertinent family medical history, No pertinent family medical history. * Social History: T obacco Use: T obacco Use/Smoking P atient is a n onsmoker, A dditional Findings: Tobacco Non-User C urrent non-smoker, currently using no form of tobacco. D rugs/Alcohol: A lcohol Screen D id you have a drink containing alcohol in the past year? Y es, H ow often did you have a drink containing alcohol in the past year? M onthly or less (1 point), H ow many drinks did you have on a typical day when you were drinking in the past year? 1 or 2 drinks (0 point), H ow often did you have 6 or more drinks on one occasion in the past year? N ever (0 point), P oints 1 , I nterpretation N egative. M iscellaneous: C affeine: yes, frequency:, 1-2 cups per day. Children: yes. Community involvements: no. Exercise: rides bike twice a week. Home smoke detector use: yes. Housing: owning. Marital status: . Occupation: retired. Pets: cats: dogs:2 dogs 1 cat. Travel outside of the [place]: yes. * Medications: T akingAspirin 81 MG Tablet 1 tablet Orally Once [...] THE EVENING FOR 90 DAYS Orally QOD Atorvastatin Calcium 80 MG Tablet TAKE 1 TABLET BY MOUTH EVERY DAY amLODIPine Besylate 2.5 MG Tablet 1 tablet Orally Once a day Valsartan 80 MG Tablet TAKE 1 TABLET BY MOUTH EVERY DAY Diclofenac Potassium 50 MG Tablet TAKE 1 TABLET BY MOUTH TWICE A DAY NEEDED Omeprazole 40 MG Capsule Delayed Release 1 capsule 1/2 to 1 hour before morning meal Orally Once a day Taking Aspirin 81 MG Tablet 1 tablet Orally Once a day Taking Xiidra 5 % Solution 1 drop into affected eye Ophthalmic Twice a day Taking Systane Preservative Free 0.4-0.3 % Solution Ophthalmic Taking Sildenafil Citrate 100 MG Tablet 1/2 tablet as needed Orally Once a day Taking Tylenol Extra Strength 500 MG Tablet 1 or 2 tablets as needed Orally every 6 hrs Taking Montelukast Sodium 10 MG Tablet TAKE 1 TABLET BY MOUTH EVERY DAY IN THE EVENING FOR 90 DAYS Orally QOD Taking Atorvastatin Calcium 80 MG Tablet TAKE 1 TABLET BY MOUTH EVERY DAY Taking amLODIPine Besylate 2.5 MG Tablet 1 tablet Orally Once a day Taking Valsartan 80 MG Tablet TAKE 1 TABLET BY MOUTH EVERY DAY Taking Diclofenac Potassium 50 MG Tablet TAKE 1 TABLET BY MOUTH TWICE A DAY NEEDED Taking Omeprazole 40 MG Capsule Delayed Release 1 capsule 1/2 to 1 hour before morning meal Orally Once a day Not-Taking/PRNacetaZOLAMIDE 125 MG Tablet 1 tablet Orally Twice a day Claritin-D 24 Hour 10-240 MG Tablet Extended Release 24 Hour 1 tablet as needed Orally Once a day Doxazosin Mesylate 1 MG Tablet 1 tablet Orally Once a day Not-Taking/PRN acetaZOLAMIDE 125 MG Tablet 1 tablet Orally Twice a day Not- Taking/PRN Claritin-D 24 Hour 10-240 MG Tablet Extended Release 24 Hour 1 tablet as needed Orally Once a day Not-Taking/PRN Doxazosin Mesylate 1 MG Tablet 1 tablet Orally Once a day DiscontinuedtraZODone HCl 150 MG Tablet TAKE 1 TABLET BY MOUTH AT BEDTIME WHEN NEEDED 90 Esomeprazole Magnesium 40 MG Capsule Delayed Release 1 capsule Orally Once a day Medication List reviewed and reconciled with the patientDiscontinued traZODone HCl 150 MG Tablet TAKE 1 TABLET BY MOUTH AT BEDTIME WHEN NEEDED 90 Discontinued Esomeprazole Magnesium 40 MG Capsule Delayed Release 1 capsule Orally Once a day Medication List reviewed and reconciled with the patient * Allergies: N .K.D.A.yes[Allergies Verified] Objective: * Vitals: H t: 61.50, Wt: 132, BMI:24.53, BP:122/60, Wt-k.87. weight is up 4 pounds since 01-06-25. * P ast Orders: L ab:Lipid Panel (Order Date - 04/08/2025) (Collection Date & Time - 04/08/2025 07:45 AM) Value Reference Range Triglycerides 123 <150 - mg/dL Cholesterol 125 <200 - mg/dL LDL Cholesterol Calculated 64 <100 - mg/dL HDL Cholesterol 37 L >40 - mg/dL L ab:PSA,Total (Free>4and<10) (Order Date - 04/08/2025) (Collection Date & Time - 04/08/2025 07:45 AM) Value Reference Range PSA,Total (Free>4and<10) 0.76 0.00-4.00 - ng/ mL L ab:UA ClnCatch+Micro w/rflx Cult (Order Date - 04/08/2025) (Collection Date & Time - 04/08/2025 07:45 AM) Value Reference Range Color Urine Yellow - Appearance Urine Clear - PH 8.0 5.0-9.0 - Glucose Urine UA Negative Negative - mg/dL Urine Blood Negative Negative - Specific [place] - Urine 1.020 1.005-1.025 - Urine Protein Negative Neg-Trace - mg/dL Urine Ketones Negative Negative - mg/dL Nitrite Urine Negative Negative - Leukocyte Esterase Urine Trace A Negative - RBC Urine 0-2 0-2 - /HPF WBC Urine 0-5 0-5 - /HPF Squamous Epithelial Cell Urine 0-2 0-2 - /HP F Bacteria Urine None Seen None Seen - Hyaline Casts Urine 0-2 0-2 - /LPF L ab:Complete Blood Count Auto Diff (Order Date - 04/08/2025) (Collection Date & Time - 04/08/2025 07:45 AM) Value Reference Range White Blood Count 6.8 4.8-10.8 - X10*3/uL Red Blood Count 3.99 L 4.60-5.80 - X10*6/uL Hemoglobin 12.1 L 14.0-18.0 - g/dl Hematocrit 38.2 L 42.0-52.0 - % Mean Corpuscular Volume 95.7 80.0-98.0 - fL Mean Corpuscular Hemoglobin 30.3 27.0-33.0 - pg Mean Corpuscular HGB Conc 31.7 31.0-36.0 - g/ dl Red Cell Distribution Width 13.4 11.0-16.0 - % Platelet Count 313 160-400 - X10*3/uL Mean Platelet Volume 9.9 9.4-12.4 - fL Neutrophils Percent Auto 58.6 45-73 - % Imm Gran Pct Auto 0.1 0.0-0.4 - % Lymphocytes Percent Auto 31.3 20-40 - % Monocytes Percent Auto 6.6 2-11 - % Eosinophils Percent Auto 2.7 0-4 - % Basophils Percent Auto 0.7 0-2 - % NRBC Pct Auto 0.0 0.0-0.2 - /100WBC Neutrophils Absolute Auto 4.0 2.0-8.3 - x10* 3/uL Imm Gran Abs Auto 0.01 0.00-0.03 - X10*3/uL Lymphocytes Absolute Auto 2.1 1.2-4.9 - X10* 3/uL Monocytes Absolute Auto 0.5 0.1-1.2 - X10*3/ uL Eosinophils Absolute Auto 0.2 0.0-0.4 - X10* 3/uL Basophils Absolute Auto 0.1 0.0-0.2 - X10*3/ uL NRBC Abs Auto 0.000 0.0-0.012 - X10*3/uL L ab:Comprehensive Kemp. Panel Fast (Order Date - 04/08/2025) (Collection Date & Time - 04/08/2025 07:45 AM) Value Reference Range Sodium 142 135-145 - mmol/L Bilirubin Total 0.5 0.0-1.0 - mg/dL Aspartate Amino Transferase 34 5-37 - U/L Alanine Aminotransferase 24 0-40 - U/L Total Protein 6.7 6.5-8.0 - g/dL Albumin Level 4.5 3.5-5.0 - g/dL Alkaline Phosphatase 73 39-117 - U/L Potassium 4.6 3.3-5.1 - mmol/L Chloride 105 96-108 - mmol/L Carbon Dioxide 31 H 22-29 - mmol/L Anion Gap 11 L 12-20 - Blood Urea Nitrogen 27 H 9-16 - mg/dL Creatinine 1.05 0.5-1.4 - mg/dL Estimated Glomerular Filt Rate > 60 - Glucose Fasting 86 60-99 - mg/dL Calcium 9.2 8.4-10.2 - mg/dL L ab:Testosterone, Free/Total (Order Date - 04/08/2025) (Collection Date & Time - 04/08/2025 07:45 AM) Value Reference Range Testosterone, Total 832 061-1304 - ng/dL Testosterone, Free 49.9 30.0-135.0 - pg/mL * Examination: G eneral Examination: GENERAL APPEARANCE: w ell developed, well nourished, in no acute distress. HEAD: n ormocephalic, atraumatic. EYES: p upils equal, round, reactive to light and accommodation, sclera non-icteric. EARS: n ormal. ORAL CAVITY: m ucosa moist. THROAT: c lear. NECK/THYROID: n jaymie supple, full range of motion, no cervical lymphadenopathy, no bruits. SKIN: w arm and dry, no suspicious lesions. HEART: r egular rate and rhythm, S1, S2 normal, no murmurs.? LUNGS: c lear to auscultation bilaterally. ABDOMEN: s oft, nontender, nondistended, bowel sounds present, normal, no organomegaly , no masses palpable. RECTAL EXAM: n ormal tone, no external hemorrhoids, no masses palpable, prostate normal, stool guaiac negative. MALE GENITOURINARY: c ircumcised, no testicular mass, testes descended bilaterally. EXTREMITIES: n o clubbing, cyanosis, or edema. NEUROLOGIC: n onfocal, motor strength normal upper and lower extremities, sensory exam intact. Assessment: * Assessment: 1. P rostatism - N40.0 (Primary) 2 . P ure hypercholesterolemia - E78.0? 3. G astroesophageal reflux disease without esophagitis - K21.9 4 . M roberth loss - R41.3 5 . E ssential hypertension - I10 6 . Colon cancer screening - Z12.11 7 . D epression screening - Z13.31 ? Plan: * Treatment: 2. P ure hypercholesterolemia Continue Atorvastatin Calcium Tablet, 80 MG, TAKE 1 TABLET BY MOUTH EVERY DAY. Notes: doing well, will continue current regiment 3. G astroesophageal reflux disease without esophagitis Continue Omeprazole Capsule Delayed Release, 40 MG, 1 capsule 1/2 to 1 hour before morning meal, Orally, Once a day. Notes: taking omeprazole, will continue current regiment 4. M roberth loss Notes: referral to [facility] unit Referral To:[facility] Unknown Reason:memory loss 5. E ssential hypertension Continue amLODIPine Besylate Tablet, 2.5 MG, 1 tablet, Orally, Once a day; C ontinue Valsartan Tablet, 80 MG, TAKE 1 TABLET BY MOUTH EVERY DAY. Notes: stab;e, will continue current regiment 6. C olon cancer screening Notes: guaiac negative 7. D epression screening Notes: negative screen * Procedure Codes: G 2211 Complex e/m visit add on * * Sign off status: Completed true * Provider: Germaine Mack MD Date: 0 04/15/2025 Generated for Sera horner/Jessie/Chente on: 0 04/21/2025 11:44 AM EDT History and Physical Notes * HPI (History of Present Illness) Category Sub-Category Detail Notes Category Not es Symptom(s) patient is a 80 yo male here for visit with review of recent labs and follow up of chronic issues here for yearly evaluation. nocturia and frequent urination day and night. Depression Screening PHQ-9 Little inte rest or pleasure in doing things: Not at all Feeling down, depressed, or hopeless: No t at all Trouble falling or staying asleep, or sl eeping too much: Not at all Feeling tired or having little energy: N ot at all Poor appetite or overeating: Not at all Feeling bad about yourself o r that you are a failure, or have let yourself or your family down: Not at all Trouble concentrating on thi ngs, such as reading the newspaper or watching television: Not at all Moving or speaking so slowly that other people could have noticed; or the opposite, being so fidgety or restless that you have been moving around a lot more than usual: Not at all Thoughts that you would be b michelle off or of hurting yourself in some way: Not at all Total Score: 0 Interpretation and Intervention Depression Tate krause Findings: Negative Follow-Up for Depression: : review of PH Q-9 found negative result, no follow-up needed SDOH Questions SDOH Questions In the past year have you been worried about losing housing?: No In the past year have you or any family members you live with been unable to get any of the following when it was really needed? Check all that apply:: None Fall Risk History Have you had any falls with injury i n the past year?: No Have you had two or more falls in the year?: No Communication Needs Communication Needs Does the patient have a hearing impairment: Yes If yes, what is the hearing impairment?: Hard of hearing, Hearing Aids Does the patient have a vision impairmen t?: Yes If yes, what is the vision impairment?: Glasses Does the patient have a cognition impair ment?: No Examination Category Sub-Category Detail Notes Category Not es General Examination GENERAL APPEARANCE: well dev eloped, well nourished, in no acute distress HEAD: normocephalic, atrau matic EYES: pupils equal, round, reactive to light and accommodation, sclera non-icteric EARS: normal THROAT: clear NECK/THYROID: neck supple, full ra nge of motion, no cervical lymphadenopathy, no bruits HEART: regular rate and rhy thm, S1, S2 normal, no murmurs LUNGS: clear to auscultatio n bilaterally ABDOMEN: soft, nontender, non distended, bowel sounds present, normal, no organomegaly , no masses palpable NEUROLOGIC: nonfocal, motor stre ngth normal upper and lower extremities, sensory exam intact SKIN: warm and dry, no john picious lesions EXTREMITIES: no clubbing, cyanosi s, or edema MALE GENITOURINARY: circumcised, no test icular mass, testes descended bilaterally RECTAL EXAM: normal tone, no exte rnal hemorrhoids, no masses palpable, prostate normal, stool guaiac negative ORAL CAVITY: mucosa moist Consultation Request Notes Referral Date Referring Provider Referred Provider Not es 04/15/2025 Luciano Mack [facility], MEMORY memory loss
--- OUTSIDE RECORDS SUMMARY | 2025-04-21 11:45 | XMS_ITS | Data Portability ---
Author Organization [place] - [facility], [facility] Address [address] [place] [address] Care Team Providers Care Crisis Intervention Specialist Name Role Phone JOCE BEJARANO Referring Provider DANIEL HAILE Referring Provider [phone] Assessment Encounter Date Assessment Date Assessment LastModified by Organization Details LastModified Time 06/08/2016 06/08/2016 [facility] Plan of Care Start [...] IMPAIRED MOTOR FUNCTION/BALANCE 6. IMPAIRED POSTURE Anticipated skilled nursing goals to be achieved by: Jul 19, [...] 07/18/2016 1. Severe DDD C4-C7 with collapse [email or web address] Not available 07/18/2016 08:59:31 07/27/2016 07/27/2016 1. Severe cervical stenosis C2-C4. 2. Improved with meds. Not available 07/27/2016 08:39:13 11/14/2016 11/14/2016 1. Severe Cervical Canal Stenosis 2. Pain right scapular boarder [email or web address] Not available 11/14/2016 10:56:26 01/25/2017 01/25/2017 1. [...] injection, trigger point (PROC) [email or web address] [facility], [address] [place], [address], 7 17:00:36 injection, trigger point (PROC) 2016 017 [email or web address] Not available 7 13:10:44 Surgeries None recorded. Imaging MRI, cervical spine, w/o contrast 2015 016 Not available 6 04:01:42 Medication Orders Medrol (Abraham) 4 mg tablets in a dose pack 2015 016 btrail [id number], [address], [place], [address], 7 10:27:39 Patient TargetsNo targets recorded. Patient Instructions Encounter Date Encounter Id Patient Instructions Last Modified By Organization Details Last Modified Time 06/08/2016 [id number] HEP - see nguyen villalba copies, progress as hugo [email or web address] Not available 06/08/2016 13:28:57 07/27/2016 [id number] 1. Long discussion regarding options and risks and benefits of surgery. 2. Pt. will notify office if worse to discuss surgery; will refer to Dr. Sosa or Dr. Long. Not available 07/27/2016 08:44:58 11/14/2016 [id number] [facility] Cortisone Injection-Handout [email or web address] Not available 11/14/2016 13:10:44 1. Discussed surgical options - mariam monitor [email or web address] Not available 11/14/2016 10:57:35 01/25/2017 [id number] CSMO Cortisone Injection-Handout [email or web address] Not available 01/27/2017 11:31:32 Thoracic trigger point injection today. Attempt to avoid surgery. Encounter transcribed by: Yvette Crandall Not available 01/31/2017 14:48:19 Reason for Referral None Reported. Results Created Date Observation Date Name Description Value Unit Range Abnormal Flag Note LastModifiedBy Organization Detail LastModifiedTime 05/27/20 16 05/13/2016 XR, cervi leslie spine No observ ation record ed. [facility] [place] (Imaging) [address], [place], [address], 06/03/2016 14:24:10 07/25/20 16 07/25/2016 MRI, cervi leslie spine [facility] [address] [place] [address] Cervic al Spine HISTOR Y: Neck pain [...] is well is erosio n along the coverstitch machine operator ior margin of the odonto id with thicke nelida along the transv erse ligame nt. Bowing of the tector ial membra ne is seen but the forame n magnum is widely patent . C2-3: Small right centra l disc osteop hyte comple x. Centra l canal is patent . No signif icant forami nal stenos is. C3-4: Modera te and mostly coverstitch machine operator ior centra l disc osteop hyte comple [...] left at C7-T1. Parana ayesha sinus diseas e.[place] ion along the coverstitch machine operator ior odonto id and marked narrow ing of the atlant oaxial articu lation with soft tissue possib ly repres enting pannus . Query inflam matory arthro jack such as rheuma toid or possib ly metabo lic arthro jack such as CPPD.E lectro harlan tom signed by: Asim Castellanos M.D. (Jul 25, 2016 12:36: [address] [facility] [address], [place], [address], 07/28/2016 09:45:45 Result Notes None recorded. Problems Name Problem SNOMED Code Status Onset Date Resolution Date Notes Provider Name and Address Organization Details Recorded Time Neck pain 43736570 Active Staci Jackson, PT [address] [place], [address], [facility] 6 13:28:57 Cervical spondylosis 025261533 Active Aline short [facility] 6 09:49:29 Joint stiffness 15105349 Parker Jackson, PT [address] [place], [address], [facility] 6 13:28:57 Muscle atrophy [id number] Parker Jackson, PT [address] [place], [address], [facility] 6 13:28:57 Spasm 97853652 Active Staci Jackson, PT [address] [place], [address], [facility] 6 13:28:57 Problem Notes None recorded. Procedures Surgical History Date Name Laterality Status Provider Name and Address Organization Details Recorded Time 7 INJ Trigger point 1-2 muscles Right completed Charmaine Flores [facility] 01/25/2017 16:59:57 7 INJ Trigger point 1-2 muscles Right completed Iza Lee [facility] 11/14/2016 10:56:56 6 INJ Trigger point 1-2 muscles Right completed Iza Lee [facility] 07/18/2016 09:02:44 6 Functional Limitation Reporting Category -Carrying/Reach ing/Handling completed Staci Jackson, PT [address] [place], [address], [facility] 06/08/2016 13:30:26 6 [address]: PT Evaluation completed Eduardo Judge [facility] 06/08/2016 10:51:44 6 [address]169: Therapeutic Exercise completed Staci Jackson, PT [address] [place], [address], [facility] 06/08/2016 13:28:57 Sinus Surgery completed Sage Leal [facility] 11/14/2016 10:34:10 Cardiac Bypass Surgery CABG completed Sage Leal [facility] 11/14/2016 10:34:26 Other completed Bescb Leal [facility] 11/14/2016 10:34:37 [facility] 11/14/2016 10:34:45 [...] Details Last Updated DateTime 11/14/2016 160.02 cm 26101.15 g 24.3 kg/m2 Sage Leal [facility] 11/14/2016 10:25:52 Date Recorded Body height Body weight Body mass index (BMI) Provider Name and Address Organization Details Last Updated DateTime 01/25/2017 160.02 cm 50022.01 g 23 kg/m2 Danelle Chun [facility] 01/25/2017 16:02:43 Date Recorded Body height Body weight Body mass index (BMI) Provider Name and Address Organization Details Last Updated DateTime 07/18/2016 160.02 cm 00952.97 g 23.9 kg/m2 Chely Moncada [facility] 07/18/2016 08:31:39 Date Recorded Body height Body weight Body mass index (BMI) Provider Name and Address Organization Details Last Updated DateTime 07/27/2016 160.02 cm 11570.79 g 23.6 kg/m2 [facility] 07/27/2016 07:46:44 Social History Question Answer Notes LastModified by Organizat ion Details LastModified Time Tobacco Smoking Status Never Smoker RENETTA Pacheco [facility] [...] SNOMED-CT Code Diagnosis ICD10 Code Diagnosis Note [id number] Monty Bejarano MD [facility] [address] [place] [address],[facility] [place] [facility] [place] [address] 06/06/2016 09:15:54 06/06/2016 10:17:41 Neck pain 72666804 M54.2 Cervical spondylosis 387 181434 M47.812 [id number] Staci Jackson, PT [facility] [address] [facility] [place] [address] 06/08/2016 10:39:41 06/08/2016 13:31:09 Neck pain 43680613 M54.2 Joint stiffness 72508139 M25.60 Muscle atrophy 21706871 M62.59 Spasm 26041008 R25.2 [id number] Wilner Sosa DO [facility] [address] [place] [address] 07/18/2016 08:17:51 07/18/2016 09:09:15 Neck pain 75636061 M54.2 Degenerati on of cervical intervertebral disc 82797607 M50.30 Severe C4-C7 with collapse [id number] Wilner Garland MD [facility] [address] [place] [address] 07/27/2016 07:30:04 07/27/2016 08:37:07 Spinal stenosis in cervical region 39080748 M48.02 Severe cervical stenosis C2-C4. [id number] Wilner Sosa DO [facility] [address] [place] [address] 11/14/2016 09:30:29 11/14/2016 10:58:22 Stenosis of spinal canal due to intervertebral disc 883599008 M99.59 [id number] Wilner Sosa DO [facility] [address] [place] [address] 01/25/2017 15:47:08 01/25/2017 17:43:16 Thoracic back pain 930050927 M54.6 Health Concerns Section Related Observation LastModified by Organization Detai ls LastModified Time None Recorded Concern Status LastModified by Organization Details LastModified Time None Recorded Advance Directives Directive None Recorded Payers Insurance Date Sequence Insurance Name Policy Number Policy Jeffries Covered Member ID Jeffries Member ID Guarantor Name 01/24/2017 2 [employer] - BASIC PLAN (INDEMNITY) [id number] Riccardo Pierson [id number] Riccardo Ruizlosi 01/24/2017 [employer] (MEDICARE DME REGION C) NONE Riccardo Pierson [id number] Riccardo Pierson 01/25/2017 1 [place] Riccardo Pierson [id number] Taniya Pierson Notes Date Note Type Note [...] ADL's documentedsee Outcome Survey Staci Jackson, PT [address] [place], [address], [facility] 06/08/2016 [...] 20% since last office visit. ZAYNAB Shultz [address] [place], [address], [facility] 07/28/2016 [...] 80% since last office visit. ZAYNAB Shultz [address] [place], [address], [facility] 07/28/2016 [...] is eased with heat. ZAYNAB Shultz [address] [place], [address], [facility] 11/18/2016 16:20:33 [...] supine and a heating pad. Wilner short, [place] [facility] 02/01/2017 07:15:57
--- OUTSIDE RECORDS SUMMARY | 2025-04-21 11:45 | XMS_ITS | Clinical Summary ---
Author Organization [facility] Address [address] [place] [address] Care Team Providers Care Receiver Dispatcher Name Role Phone Unavailable Primary Care Provider [...]
--- OUTSIDE RECORDS SUMMARY | 2025-04-21 11:45 | XMS_ITS | Clinical Summary ---
Author Organization [facility] Address [address] [place] [address] Care Team Providers Care It Security Specialist Name Role Phone Unavailable Primary Care Provider Unavailabl e Social History Tobacco Use Types Packs/Day Years Used Date Smoking Tobacco: Never Assessed Sex and Gender Information Value Date Recorded Sex Assigned at Not on file Gender Identity Not on file Sexual Orientation Not on file Plan of Treatment Not on file
[2025-04-21 12:28] LABS: Folate 14.7 ng/mL (> or = 4.0); Vitamin B12 565 pg/mL (200-900)
== END 2025-04-21 10:50 | disposition home or self-care (01) ==
LOC: HO.LNP 10:49
PROVIDERS: Visit Provider Internal Medicine
DX: R41.3 Other amnesia (principal)
CPT/HCPCS: 82607; 82746; 84443